=== PATIENT | male | born 1960 | race Caucasian/White ===

== ENCOUNTER 2016-09-17 16:30 | Inpatient (IN) ==
[2016-09-17] MEDS ORDERED: cefTRIAXone 1 GM in DEXTROSE 5% IN WATER 50 ML IV ONE (17:09)
[2016-09-17] MEDS ORDERED: VANCOMYCIN 1,000 MG in 0.9 % SODIUM CHLORIDE 250 ML IV ONE ×2 (17:13→21:00)
[2016-09-17] MEDS: 0.9 % SODIUM CHLORIDE 1,000 ML IV SCH ×2 (17:18→21:35)
[2016-09-17] MEDS ORDERED: PIPERACILLIN SODIUM/TAZOBACTAM 3.375 GM in DEXTROSE 5% IN WATER 50 ML IV ONE (17:35)
[2016-09-17 17:44] LABS: Basophils # (Auto) 0.1 K/mcL (0.0-0.3); Eosinophils # (Auto) 0.2 K/mcL (0.0-0.7); Eosinophils % (Auto) 2.3 % (0.0-7.0); Granulocytes % (Auto) 55.2 % (38.0-78.0); Lymphocytes # (Auto) 2.6 K/mcL (1.5-4.8); Lymphocytes % (Auto) 35.5 % (15.5-49.0); Mean Cell Volume 92.8 fL (80.0-100.0); Mean Corpuscular HGB Conc 34.4 g/dL (31.0-36.0); Mean Corpuscular Hemoglobin 31.9 pg (26.0-34.0); Monocytes # (Auto) 0.4 K/mcL (0.1-0.9); Platelet Count 320 K/mcL (140-440); RBC 4.95 M/mcL (4.50-5.90); Red Cell Distribution Width 12.3 % (11.5-14.5)
[2016-09-17] MEDS: HYDROmorphone 2 MG/ML SYRINGE IV SCH ×2 (17:44→18:02)
[2016-09-17] MEDS ORDERED: HYDROmorphone 2 MG/ML SYRINGE ONE (17:45)
[2016-09-17 18:03] LABS: ALT/SGPT 23 U/l (0-40); Albumin 4.1 gm/dL (3.2-5.2); Albumin/Globulin Ratio 1.2 (1.0-2.3); Alkaline Phosphatase 96 U/L (39-117); Blood Urea Nitrogen 17 mg/dl (6-20)
--- NOTE | 2016-09-17 19:26 | Internal Med History&Physical ---
Medical - H&P: HPI Patient information: Note initiated : 09/17/16 at 7:26 pm Patient: Rock Narayan 56 y/o M admitted for left foot infection, osteomyelitis. History of present illness: Mr. Narayan is a 56 year old man with a history of osteomyelitis of his left foot. He apparently has had difficulty keeping appointments, and has generally been noncompliant with care. He had a surgical procedure with Dr. Jc Nolan, which subsequently became infected. He then had a revision with Dr. Morales, and that wound dehisced. He has followed up for wound care at both [facility] and [facility], and was lost to follow-up. He reports that he has been on antibiotics both oral and IV, intermittently for about 60 days now. He tells me that he developed a left foot infection in November 2015. I believe he was treated as an inpatient at [facility], and underwent a surgical procedure with Dr. Nolan. He says the infection then came back and then he followed up with Dr. Morales, and had another surgery. He says he was then treated for approximately 60 days with IV antibiotics from January to March , and that he did not miss an appointment. At some point he was also followed at our wound care clinic, and says he was discharged from there, even though the wound was still a little bit open. He was told it would close up on its own eventually, but he says it did not. He got very frustrated with the lining maker, so he decided to stop seeing them. He has been in and out of the emergency room whenever the foot flares up and starts to drain again. He has been treated with various oral antibiotics, including ciprofloxacin and Bactrim. He believes he had an MRI over at [facility] about 6 weeks ago, that showed ongoing osteomyelitis. His sister was diagnosed with lung cancer not long ago, and he decided to forget about his foot while he tried to help her through her cancer. He has been experiencing fever and chills the last few days, and feeling dizzy. He notes he has had intermittent nausea, vomiting, and diarrhea. The diarrhea tends to wax and wane a bit. He also has a mild cough for the last few days, which is nonproductive. He was seen in our emergency room on September 13, and wound cultures were done. I believe he was referred to orthopedics, but did not make that appointment. He presented back to the emergency room today complaining of fever and chills, and extreme frustration with his inability to get his foot healed. He says his sister, who appears to be dying of her cancer, strongly encouraged him to get treatment for his foot, and this is what his family wants as well. He otherwise denies headaches, new eye or ear symptoms, sore throat, chest pain or palpitations, shortness of breath, abdominal pain, hematemesis or bright red blood per rectum, dysuria. He initially denied depression, but then admits he has been very frustrated and that he often cries himself to sleep because he is so frustrated with his health. He has been seeing Dr. Hadley, but apparently Dr. hadley is getting ready to retire. It has been suggested that he get a new primary care physician. Dr. Hadley has been treating him with Seroquel, but the patient's understanding was that this was to help him sleep, and not necessarily for depression or psychosis. He denies any previous diagnosis of depression or bipolar disorder. Past medical history: Left foot infection, status post surgical repair, status post wound infection and osteomyelitis ? Undiagnosed depression Previous back spine surgery [address] in [place]. He has rods and cages in place. History of left knee replacement, and approximately 15 procedures on his knees, mostly the left side. He has a past history of postop infections of both of these sites, with great difficulty healing them. Current medications: Seroquel 100 mg nightly Zofran as needed Blood pressure medicine, unknown name. Vitamin C 1500 mg daily Tylenol, as needed Allergies: Codeine causes vomiting Family history: Patient reports his mother at age 54 with a history of stomach cancer. His father of lung cancer at age 57. A brother of lung cancer. A sister is currently fighting lung cancer. He has other siblings that are alive and well. Social history: Patient denies drug use. He does not drink alcohol. Uses chewing tobacco, 1-2 cans per week, for about 37 years. He is and lives with his youngest son. He has 5 daughters who are grown. 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 Medical - H&P: Meds Home Medications Medication Instructions Recorded Confirmed Type Ondansetron HCl [Zofran ODT] 4 mg SL Q4-6HP PRN #10 tablet 07/07/16 09/17/16 Rx QUEtiapine [SEROquel] 100 mg PO HS 08/19/16 09/17/16 History Allergies Allergy/AdvReac Type Severity Reaction Status Date / Time codeine AdvReac Mild Vomiting Verified 09/17/16 21:14 Medical - H&P: Exam - Constitutional Vitals: Temp Pulse Resp BP Pulse Ox 97.5 F 81 13 124/105 98 09/17/16 16:30 09/17/16 19:02 09/17/16 19:02 09/17/16 19:02 09/17/16 19:02 On exam, he is a well-developed rather overweight white male, who is tearful at times, and otherwise emotionally labile Head: Normocephalic and atraumatic. Eyes: PERRLA, EOMI, anicteric. Ears: TMs and canals are clear. Pharynx: Is clear, with good dentition and clear posterior pharynx. He does have signs of chewing tobacco in his mouth. Neck: Supple, without lymphadenopathy, JVD, thyromegaly, bruits. Cardiac exam: Shows regular rate and rhythm, with normal S1 and S2, without murmurs, rubs, gallops. Lungs: Are clear to auscultation, without rales, rhonchi, wheezes. abdomen: Is obese, but soft and nontender without obvious masses. Bowel sounds are active. Back exam, shows marked scarring over his lumbar spine. Extremities: Right lower extremity appears fairly normal. Left lower extremity has mild foot and ankle edema, which is very tender to the touch. There is no significant erythema. There is a 4-5 inch scar over the left foot, dorsal surface, which is mostly healed. I do not see any drainage today, but he says he has been having intermittent greenish drainage from the foot. It is markedly tender to touch. Neurologic exam: Is grossly nonfocal. Affect is quite sad and labile. Her exam is nonfocal. Skin exam: No other obvious rashes are noted. He does have multiple tattoos. Medical - H&P: Reslt - Labs CBC & Chem 7: 09/17/16 16:55 09/17/16 16:55 Labs: Short CBC 09/17/16 Range/Units 16:55 WBC 7.4 (4.5-11.0) K/mcL Hgb 15.8 (13.5-16.5) g/dL Hct 45.9 (41.0-55.0) % Plt Count 320 (140-440) K/mcL BMP 09/17/16 16:55 Sodium 135 Potassium 3.7 Chloride 99 Carbon Dioxide 24 BUN 17 Creatinine 1.1 Glucose 145 H Calcium 9.4 Liver Function 09/17/16 Range/Units 16:55 Total Bilirubin 1.0 (0.0-1.0) mg/dL AST 22 (0-37) U/l ALT 23 (0-40) U/l Alkaline Phosphatase 96 (39-117) U/L Albumin 4.1 (3.2-5.2) gm/dL September 13, 2016: Wound culture right foot: Pseudomonas aeruginosa, pseudocyst aeruginosa #2, Alcaligenes species. The 2 Pseudomonas species are generally sensitive to cefepime, ceftazidime, Cipro, Levaquin, Zosyn. The Acaligenes species is sensitive to Levaquin, meropenem, Zosyn, Bactrim, but resistant to cefepime, aztreonam, ceftazidime, and intermittent to ciprofloxacin. It is sensitive to Levaquin. August 25: Blood cultures are negative. August 20: Left foot wound culture grew Pseudomonas aeruginosa, Citrobacter fundi, Klebsiella oxytoca July 07: Left foot wound culture grew Klebsiella oxytoca, Acineto baumannii, haemophilus parainfluenza Medical - H&P: A/P (1) Bipolar disorder with depression Current visit: Yes Status: Chronic (2) Cellulitis of left foot Current visit: No Status: Acute (3) Osteomyelitis of ankle or foot Current visit: No Status: Acute (4) Wound dehiscence, surgical Current visit: No Status: Acute - Narrative A/P Narrative: #1. Infectious disease. This patient presents with ongoing infection of his left foot, with wound that has had purulent drainage over the last several weeks.. He is status post placement of hardware, and has an ongoing history of osteomyelitis. This is reportedly been going on for at least 2 to 6 months. He has been noncompliant with follow-up, and lost to follow-up at least twice. He now presents with weakness and fatigue, and chills. Vital signs and labs are not terribly abnormal, presumably because he has been partially treated with antibiotics as an outpatient. He clearly requires more aggressive treatment in an attempt to get this to move towards healing. -Admit. -Reculture wound and blood. -Cover empirically with Zosyn and vancomycin, as bacteria that are growing from several days ago, are covered by these antibiotics.. -Wound care consult -He may need podiatry or orthopedic consult as well, for possible repeat surgery. -X-ray foot tonight. Sent for the MRI from [facility] from 6 weeks ago. He will likely require another MRI this week. #2. Psychiatric. Patient denies history of depression, but certainly appears depressed at this point. The reason he was prescribed Seroquel is not entirely clear. We should try to clarify that with Dr. Mena's office -I would suggest weaning the dose of Seroquel down a bit. Add Zoloft, for likely depression. This may also help somewhat with pain control. He should have a referral to counseling at discharge as well. We also discussed that he needs to not be too wrapped up in his foot. We discussed that even if he requires partial foot amputation, he can still go on with his life. He is strongly encouraged to stick with a treatment plan, and not be lost to follow-up again. We discussed that this just makes treatment in the future even more difficult. 3. CODE STATUS: Full code. 4. DVT prophylaxis: Subcu Lovenox. 5. Hypertension. -We will need to check with his primary care office tomorrow to verify what his blood pressure medication is or, he will try to see if his can find that out tonight. He says he usually uses the [facility] pharmacy in [place]. 6. Obesity. #7. GI. Patient reports episodes of nausea, vomiting, diarrhea. He is at risk for C. difficile colitis. We will send a stool sample for screening. I do wonder if some of his GI symptoms are related to anxiety, and he may also just have some antibiotic associated diarrhea. #8. Tobacco abuse. The patient has long-standing use of chewing tobacco. He has a strong family history of cancer, and absolutely should stop using chewing tobacco. He should be referred to a good oral surgeon for a thorough exam. -He will be offered a NicoDerm patch while he is here. #9. Disposition: Patient will also need to be connected with a new primary care physician. This visit took approximately 60 minutes, to review the patient's records and test results, review his case with the ER MD, interview and examine him, and write orders.
[2016-09-17] MEDS ORDERED: ACETAMINOPHEN 325 MG TABLET PO PRN (20:06)
[2016-09-17] MEDS ORDERED: IBUPROFEN 600 MG TABLET PO PRN (20:06)
[2016-09-17] MEDS ORDERED: VANCOMYCIN PER PHARMACY IV SCH (20:06)
[2016-09-17] MEDS ORDERED: MAGNESIUM HYDROXIDE 30 ML ORAL.SUSP PO PRN (20:06)
[2016-09-17] MEDS ORDERED: 0.9 % SODIUM CHLORIDE 1,000 ML IV SCH (20:06)
[2016-09-17] MEDS ORDERED: DOCUSATE SODIUM 100 MG CAPSULE PO PRN (20:06)
[2016-09-17] MEDS ORDERED: NALOXONE HCL 0.4 MG/ML VIAL IV PRN (20:06)
[2016-09-17] MEDS ORDERED: traZODone HCL 50 MG TABLET PO PRN (20:06)
--- NOTE | 2016-09-17 20:15 | Emergency Department Note ---
Wound/Laceration HPI - General Chief Complaint: Recheck/Abnormal Lab/Rx Stated Complaint: Recheck of left foot wound Time Seen by Provider: 09/17/16 16:42 Source: patient Mode of arrival: wheelchair Limitations: no limitations - History of Present Illness HPI Narrative: 56-year-old female presents complaining of wound infection to left foot. States this is a recurrent infection. He was seen about 5 days ago and was set up on outpatient IV antibiotic therapy but has not followed up in any way. He does have a history of noncompliance. States he has not been seen a specialist at this time, only his primary care provider Dr. gomes. He states he has seen several wound care doctors as well as podiatry and will not go back to them. This is a recurrent problem with this osteomyelitis in the left foot. Is tearful and states he is scared because he generally does not feel well. Feels like he has chills and is sweating. "I just do not feel right like I can really this time ". Unknown fever. Positive nausea, no vomiting or diarrhea. States his foot is throbbing. Also has some tingling in the left great toe distal to the wound site. States he is not currently taking any antibiotics. Associated symptoms: Reports: pain. Denies: syncope - Related Data Home Medications Medication Instructions Recorded Confirmed QUEtiapine [SEROquel] 100 mg PO HS 08/19/16 09/17/16 Previous Rx's Medication Instructions Recorded Ondansetron HCl [Zofran ODT] 4 mg SL Q4-6HP PRN #10 tablet 07/07/16 Allergies Allergy/AdvReac Type Severity Reaction Status Date / Time codeine Allergy Intermediate Vomiting Verified 09/17/16 16:33 Review of Systems All systems ED: reviewed and negative except as stated. Past Medical History - Past Medical History Medical history: Reports: other (States long history with wound healing problems from multiple surgeries including his back and his left foot.States he has an infection in the bone of left foot for which he has been receiving IV antibiotic therapy for over 60 days., Chronic left foot wound and wound dehiscence. Osteomyelitis in the left foot. Noncompliant) Surgical history ED: Reports: other (multiple lumbar spine cervical spine surgeries; left knee replacement last year; multiple foot surgeries) Psychiatric history: Reports: bipolar - Social History smoking status: Unknown if ever smoked Alcohol use: Reports: Unknown Drug use: Reports: none Physical Exam - General Limitations: no limitations General appearance: anxious - Head Head exam: atraumatic, normocephalic, normal inspection - Eye Eye exam: Present: normal appearance. Absent: conjunctival injection - ENT ENT exam: normal exam, normal oropharynx, mucous membranes moist, TM's normal bilaterally, normal external ear exam - Neck Neck exam: Present: normal inspection, full ROM, trachea midline. Absent: tenderness, lymphadenopathy - Chest Chest inspection: Present: normal inspection, symmetric chest wall rise - Respiratory Respiratory exam: Present: normal lung sounds bilaterally. Absent: respiratory distress, wheezes, accessory muscle use - Cardiovascular Cardiovascular exam: Present: regular rate, normal heart sounds - Extremities Exam Extremities exam: Present: normal capillary refill. Absent: normal inspection ( Please see skin assessment regarding the left foot. Left foot with open draining wound with purulent drainage. Pedal pulses are strong and equal bilaterally. There is edema to left foot around the wound site. No change in range of motion. Sensation intact.) - Neurological Exam Neurological exam: Present: alert, oriented X3 - Psychiatric Psychiatric exam: Present: normal affect, normal mood, agitated (Agitated and anxious at times but does calm down and is cooperative. States that he wants help) - Skin Skin exam: Present: warm, dry. Absent: intact (Left foot with a 7 cm wound that is an obvious past surgical site with scar tissue. The area is red and swollen. It is warm to touch. There is greenish yellow drainage. Wound culture from 5 days ago grew out multiple Pseudomonas) Course Course Narrative: Case discussed with hospitalist Dr. Torres who agrees to admit patient and patient will be compliant and stay. Patient states that he will, understands the seriousness of this and wants help Vital Signs Temperature 97.5 F 09/17/16 16:30 Pulse Rate 92 H 09/17/16 16:30 Respiratory Rate 20 09/17/16 16:30 Blood Pressure 142/75 09/17/16 16:30 Pulse Oximetry (%) 96 09/17/16 16:30 Temperature 97.5 F 09/17/16 19:44 Pulse Rate 81 09/17/16 19:44 Respiratory Rate 13 09/17/16 19:44 Blood Pressure 124/105 09/17/16 19:44 Pulse Oximetry (%) 98 09/17/16 19:44 Wound/Laceration - Lab Data Result diagrams: 09/17/16 16:55 09/17/16 16:55 Lab Results 09/17/16 09/17/16 09/17/16 Range/Units 16:55 16:55 16:55 WBC 7.4 (4.5-11.0) K/mcL RBC 4.95 (4.50-5.90) M/mcL Hgb 15.8 (13.5-16.5) g/dL Hct 45.9 (41.0-55.0) % MCV 92.8 (80.0-100.0) fL MCH 31.9 (26.0-34.0) pg MCHC 34.4 (31.0-36.0) g/dL RDW 12.3 (11.5-14.5) % Plt Count 320 (140-440) K/mcL MPV 8.2 (7.4-10.4) fL Gran % 55.2 (38.0-78.0) % Lymph % (Auto) 35.5 (15.5-49.0) % Vance % (Auto) 6.0 (1.0-12.0) % Eos % (Auto) 2.3 (0.0-7.0) % Baso % (Auto) 1.0 (0.0-2.0) % Gran # 4.1 (1.8-8.0) K/mcL Lymph # (Auto) 2.6 (1.5-4.8) K/mcL Vance # (Auto) 0.4 (0.1-0.9) K/mcL Eos # (Auto) 0.2 (0.0-0.7) K/mcL Baso # (Auto) 0.1 (0.0-0.3) K/mcL VBG Lactic Acid 2.2 (0.5-2.2) mmol/L Sodium 135 (133-145) mmol/L Potassium 3.7 (3.3-5.1) mmol/L Chloride 99 (96-108) mmol/L Carbon Dioxide 24 (22-30) mmol/L Anion Gap 12.0 (8-16) BUN 17 (6-20) mg/dl Creatinine 1.1 (0.7-1.2) mg/dl GFR Calculation 74 Glucose 145 H (70-105) mg/dL Calcium 9.4 (8.6-10.4) mg/dl Total Bilirubin 1.0 (0.0-1.0) mg/dL AST 22 (0-37) U/l ALT 23 (0-40) U/l Alkaline Phosphatase 96 (39-117) U/L Total Protein 7.6 (5.9-8.4) gm/dL Albumin 4.1 (3.2-5.2) gm/dL Globulin 3.5 (2.2-3.7) gm/dL Albumin/Globulin Ratio 1.2 (1.0-2.3) Disposition Pt seen by SENIOR DATA QUALITY ANALYST/PA only: Yes Clinical Impression: Encounter for wound re-check Disposition: Xfer As Inpt ([facility]) Condition: Fair
[2016-09-17] MEDS: HYDROcodone/APAP 5/325MG TABLET PO PRN (21:28)
[2016-09-17] MEDS ORDERED: VANCOMYCIN 500 MG VIAL ONE (21:56)
[2016-09-17] MEDS: 0.9 % SODIUM CHLORIDE 10 ML SYRINGE IV SCH (21:58)
[2016-09-17] MEDS ORDERED: PIPERACILLIN SODIUM/TAZOBACTAM 3.375 GM VIAL IV ONE (23:43)
[2016-09-17] MEDS: PIPERACILLIN SODIUM/TAZOBACTAM 3.375 GM in DEXTROSE 5% IN WATER 50 ML IV SCH (23:52)
[2016-09-18] MEDS: HYDROcodone/APAP 5/325MG TABLET PO PRN ×2 (01:35→09:52)
[2016-09-18] MEDS ORDERED: PIPERACILLIN SODIUM/TAZOBACTAM 3.375 GM VIAL IV ONE (03:57)
[2016-09-18] MEDS: 0.9 % SODIUM CHLORIDE 10 ML SYRINGE IV SCH ×3 (05:20→21:42)
[2016-09-18] MEDS: PIPERACILLIN SODIUM/TAZOBACTAM 3.375 GM in DEXTROSE 5% IN WATER 50 ML IV SCH ×3 (05:20→17:44)
[2016-09-18 05:48] LABS: Basophils # (Auto) 0 K/mcL (0.0-0.3); Basophils % (Auto) 0.4 % (0.0-2.0); Eosinophils # (Auto) 0.2 K/mcL (0.0-0.7); Eosinophils % (Auto) 3.2 % (0.0-7.0); Granulocytes % (Auto) 53.7 % (38.0-78.0); Lymphocytes # (Auto) 2.6 K/mcL (1.5-4.8); Lymphocytes % (Auto) 34.9 % (15.5-49.0); Mean Cell Volume 93.9 fL (80.0-100.0); Mean Corpuscular HGB Conc 34.6 g/dL (31.0-36.0); Mean Corpuscular Hemoglobin 32.5 pg (26.0-34.0); Monocytes # (Auto) 0.6 K/mcL (0.1-0.9); Monocytes % (Auto) 7.8 % (1.0-12.0); Platelet Count 284 K/mcL (140-440); RBC 4.33 M/mcL (4.50-5.90); Red Cell Distribution Width 12.2 % (11.5-14.5)
[2016-09-18 06:26] LABS: ALT/SGPT 19 U/l (0-40); Albumin 3.6 gm/dL (3.2-5.2); Albumin/Globulin Ratio 1.2 (1.0-2.3); Alkaline Phosphatase 82 U/L (39-117); Bilirubin,Direct < 0.2 mg/dL (0.0-0.3); Blood Urea Nitrogen 14 mg/dl (6-20); Gamma Glutamyl Transpeptidase 48 U/L (8-61); Magnesium 2.1 mg/dL (1.6-2.5); Uric Acid 5.9 mg/dL (2.5-8.0)
--- NOTE | 2016-09-18 08:52 | General Surgery Consult Note ---
History of Present Illness Patient information: Note initiated : 09/18/16 at 8:46 am Service Date, if different from initiated Date: [] Patient: Rock Narayan 56 y/o M admitted on 09/17/16 for Recheck of left foot wound. Chief Complaint: [] Consult date: 09/18/16 Requesting physician: Bhavani Martini (Wound Care Consult) History of present illness: I saw this patient in room 116 along with AZALEA Cotto Inpatient wound care and Skyla RN caring for this patient. Subsequently discussed his case with Dr. Kartik Torres. I know this patient well from prior visits at wound care clinic. I reviewed his EHR and noted developments, leading to his admission this time at [facility]. H/O Nicotine addiction, NON healing wound post surgical wounds LEFT FIRST TOE, metatarsal bone. H/O Osteomyelitis, PAD, prior podiatry procedures and variable courses of IV antibiotics and local wound care. Patient still chews tobacco. Long standing problems of psych nature with depression, anxiety and NON ADHERENCE to recommended treatment regimens. Medications and Allergies Home Medications Medication Instructions Recorded Confirmed Type Ondansetron HCl [Zofran ODT] 4 mg SL Q4-6HP PRN #10 tablet 07/07/16 09/17/16 Rx QUEtiapine [SEROquel] 100 mg PO HS 08/19/16 09/17/16 History Allergies Allergy/AdvReac Type Severity Reaction Status Date / Time codeine AdvReac Mild Vomiting Verified 09/17/16 21:14 Exam Temp Pulse Resp BP Pulse Ox 99.0 F H 56 L 18 159/76 95 09/18/16 08:00 09/18/16 03:49 09/18/16 08:00 09/18/16 08:00 09/18/16 08:00 - General physical appearance well developed, well nourished, no distress, no pain, other (Tearful during conversation. His sister is at terminal stage of Lung Cancer. Managed at [facility] . Patient was reportedly preoccupied with her care. But NOW sister has advised him to take care of his problem FIRST.) - Eyes PERRL, normal ocular movement - ENT normal pinna, normal mucosa, no congestion - Head Head exam IM: Present: atraumatic, normal inspection, normocephalic - Neck no masses, no bruits, trachea midline, no venous distension - Cardiovascular Cardiovascular exam IM: Present: normal rate and rhythm - Respiratory normal expansion, normal respiratory effort, clear to auscultation - Abdomen Abdomen: Present: soft, non tender, bowel sounds - Integumentary Present: other (Indurated skin edges with edema of LEFT foot, non healing wound base, without drainage and odor, Tenderness of periwound tissues and NON palpable pulses. Sub acute / chronic infection wit hnew changes of cellulitis evolving. 6x1x0.5 CM ) - Neurologic Present: normal coordination, normal sensation, other (No focal neurological deficits. ) - Musculoskeletal Present: other (NWB left foot. OPEN wound on dorsal aspect of LEFT 1 st toe over the metatarsal areas. See details as above in Integumentary note.) - Psychiatric Present: oriented to time, oriented to person, oriented to place, speech is normal, other (Tearful, repetative and anxious. ) Results - Labs 09/18/16 04:35 09/18/16 04:35 Abnormal lab results 09/18/16 09/18/16 09/18/16 Range/Units 04:35 04:35 06:48 RBC 4.33 L (4.50-5.90) M/mcL Hct 40.7 L (41.0-55.0) % ESR 22 H (0-15) mm/hr Creatinine 1.3 H (0.7-1.2) mg/dl Glucose 108 H (70-105) mg/dL Triglycerides 151 H (<150) mg/dl Diabetes panel 09/18/16 Range/Units 04:35 Sodium 142 (133-145) mmol/L Potassium 3.5 (3.3-5.1) mmol/L Chloride 105 (96-108) mmol/L Carbon Dioxide 23 (22-30) mmol/L BUN 14 (6-20) mg/dl Creatinine 1.3 H (0.7-1.2) mg/dl Glucose 108 H (70-105) mg/dL Calcium 8.8 (8.6-10.4) mg/dl AST 17 (0-37) U/l ALT 19 (0-40) U/l Alkaline Phosphatase 82 (39-117) U/L Total Protein 6.6 (5.9-8.4) gm/dL Albumin 3.6 (3.2-5.2) gm/dL Triglycerides 151 H (<150) mg/dl Calcium panel 09/18/16 Range/Units 04:35 Calcium 8.8 (8.6-10.4) mg/dl Phosphorus 3.3 (2.7-4.5) mg/dL Albumin 3.6 (3.2-5.2) gm/dL Pituitary panel 09/18/16 Range/Units 04:35 Sodium 142 (133-145) mmol/L Potassium 3.5 (3.3-5.1) mmol/L Chloride 105 (96-108) mmol/L Carbon Dioxide 23 (22-30) mmol/L BUN 14 (6-20) mg/dl Creatinine 1.3 H (0.7-1.2) mg/dl Glucose 108 H (70-105) mg/dL Calcium 8.8 (8.6-10.4) mg/dl Adrenal panel 09/18/16 Range/Units 04:35 Sodium 142 (133-145) mmol/L Potassium 3.5 (3.3-5.1) mmol/L Chloride 105 (96-108) mmol/L Carbon Dioxide 23 (22-30) mmol/L BUN 14 (6-20) mg/dl Creatinine 1.3 H (0.7-1.2) mg/dl Glucose 108 H (70-105) mg/dL Calcium 8.8 (8.6-10.4) mg/dl Total Bilirubin 0.5 (0.0-1.0) mg/dL AST 17 (0-37) U/l ALT 19 (0-40) U/l Alkaline Phosphatase 82 (39-117) U/L Total Protein 6.6 (5.9-8.4) gm/dL Albumin 3.6 (3.2-5.2) gm/dL All other labs normal. Assessment and Plan (1) PAD (peripheral artery disease) Status: Suspected Priority: Medium (2) Wound dehiscence, surgical Assessment: Infected chronic wound with sub acute exacerbation. Osteomyelitis Left 1 st toe proximal foot. OPEN wound. No drainage and NO odor NEEDS, Local wound care, LUISA tissue capillary FLUORESCENT microangiography , Agree with Antidepressants and IV antibiotics. Podiatry consult Dr. Darci Jacobs. DPM LUISA Fluorescent tissue microangiography at wound clinic this morning. Status: Acute Priority: High Qualifiers: Encounter type: initial encounter
--- NOTE | 2016-09-18 08:54 | XRay Report ---
CLINICAL INFORMATION: Infected with history of osteomyelitis COMPARISON: None. FINDINGS: The first metatarsal is foreshortened and there is marked thickening/irregularity of both the cortical and trabecular bone. Findings are most compatible with resolved osteomyelitis. There is no evidence of Nilton's abscess, lysis or other definite evidence of active osteomyelitis. No other osseous abnormality. Joint spaces are normal with alignment without arthritic change. There is moderate soft tissue swelling and midfoot and forefoot region likely representing cellulitis. IMPRESSION: Suspect healed chronic osteomyelitis throughout the first metatarsal. No definite plain film evidence of active osteomyelitis. If there is strong clinical consideration suggest MRI. Diffuse soft tissue swelling in the forefoot and midfoot compatible with cellulitis Interpreted and Authenticated by: Parish Mora 09/18/16
[2016-09-18] MEDS: VANCOMYCIN 1,500 MG in 0.9 % SODIUM CHLORIDE 500 ML IV SCH ×2 (09:45→21:33)
[2016-09-18] MEDS: busPIRone 5 MG TABLET PO SCH ×2 (09:46→21:42)
[2016-09-18] MEDS: MULTIVIT,THER IRON,CA,FA & MIN 1 TABLET PO SCH (09:46)
[2016-09-18] MEDS: NICOTINE 7 MG PATCH TOPICAL SCH (09:46)
[2016-09-18] MEDS: SERTRALINE 50 MG TABLET PO SCH (09:46)
[2016-09-18] MEDS: ENOXAPARIN 40 MG/0.4 ML SYRINGE SQ SCH (09:46)
--- NOTE | 2016-09-18 11:14 | Internal Med Progress Note ---
Medical - PN: Subj Patient information: Note initiated : 09/18/16 at 11:14 am Service Date, if different from initiated Date: [] Patient: Rock Narayan 56 y/o M admitted on 09/17/16 for Recheck of left foot wound. Chief Complaint: [] Interval history: September 17, 2016: History of present illness: Mr. Narayan is a 56 year old man with a history of osteomyelitis of his left foot. He apparently has had difficulty keeping appointments, and has generally been noncompliant with care. He had a surgical procedure with Dr. Jc Nolan, which subsequently became infected. He then had a revision with Dr. Morales, and that wound dehisced. He has followed up for wound care at both [facility] and [facility], and was lost to follow-up. He reports that he has been on antibiotics both oral and IV, intermittently for about 60 days now. He tells me that he developed a left foot infection in November 2015. I believe he was treated as an inpatient at [facility], and underwent a surgical procedure with Dr. Nolan. He says the infection then came back and then he followed up with Dr. Morales, and had another surgery. He says he was then treated for approximately 60 days with IV antibiotics from January to March , and that he did not miss an appointment. At some point he was also followed at our wound care clinic, and says he was discharged from there, even though the wound was still a little bit open. He was told it would close up on its own eventually, but he says it did not. 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 He has been in and out of the emergency room whenever the foot flares up and starts to drain again. He has been treated with various oral antibiotics, including ciprofloxacin and Bactrim. He believes he had an MRI over at [facility] about 6 weeks ago, that showed ongoing osteomyelitis. His sister was diagnosed with lung cancer not long ago, and he decided to forget about his foot while he tried to help her through her cancer. He has been experiencing fever and chills the last few days, and feeling dizzy. He notes he has had intermittent nausea, vomiting, and diarrhea. The diarrhea tends to wax and wane a bit. He also has a mild cough for the last few days, which is nonproductive. He was seen in our emergency room on September 13, and wound cultures were done. I believe he was referred to orthopedics, but did not make that appointment. He presented back to the emergency room today complaining of fever and chills, and extreme frustration with his inability to get his foot healed. He says his sister, who appears to be dying of her cancer, strongly encouraged him to get treatment for his foot, and this is what his family wants as well. He otherwise denies headaches, new eye or ear symptoms, sore throat, chest pain or palpitations, shortness of breath, abdominal pain, hematemesis or bright red blood per rectum, dysuria. He initially denied depression, but then admits he has been very frustrated and that he often cries himself to sleep because he is so frustrated with his health. He has been seeing Dr. Hadley, but apparently Dr. hadley is getting ready to retire. It has been suggested that he get a new primary care physician. Dr. Hadley has been treating him with Seroquel, but the patient's understanding was that this was to help him sleep, and not necessarily for depression or psychosis. He denies any previous diagnosis of depression or bipolar disorder. September 18: Today, the patient notes he is feeling a bit better, and a bit more optimistic about healing his foot. I saw him at the same time that Dr. Flynn saw him this morning. The patient has been noticing increasing foot pain, and does note that he had some sweats last night. Otherwise though he is having less chills, he denies chest pain or palpitations, shortness of breath, abdominal pain, nausea or vomiting or diarrhea or dysuria. Later today he did have a loose stool again, but C. difficile screen was negative. His and son were also in the room with him today, and he reports he is agreeable to trying antidepressants for his depression and anxiety symptoms. - Constitutional Vitals: Vital Signs Temp Pulse Resp BP Pulse Ox 97.8 F 56 L 20 156/58 96 09/18/16 11:10 09/18/16 03:49 09/18/16 11:10 09/18/16 11:10 09/18/16 11:10 Period Temp Pulse Resp BP Sys/Torrez Pulse Ox Last 24 Hr 97.2 F-99.0 F 52-56 18-20 140-159/58-78 95-96 Intake and Output 09/17/16 09/18/16 09/18/16 21:59 05:59 13:59 Intake Total 1100 / 1100 1050 / 1050 Balance 1100 / 1100 1050 / 1050 Weight 243 lb Intake & Output: Intake & Output 09/17/16 09/18/16 09/18/16 21:59 05:59 13:59 Intake Total 1100 / 1100 1050 / 1050 Balance 1100 / 1100 1050 / 1050 Weight 243 lb Intake: IV 1050 / 1050 Oral 800 / 800 IV - Manual Only 300 / 300 Temperature was 99 at 8:00 this morning, and he has been afebrile since then. Blood pressures are running a bit high, ranging from 156-177/58-95. On exam, he is awake and alert, and seems to be in better spirits today. Neck is supple without obvious lymphadenopathy or JVD. Cardiac exam shows regular rate and rhythm. Lungs are clear to auscultation. Next line abdomen is soft. Right lower extremity shows no edema. Left lower extremity: The left foot continues to be quite swollen and very tender to touch. No discharge is noted from the wound today. Neurologic: Is grossly nonfocal. Mood seems a bit calmer today. Medical - PN: Obj Da - Labs CBC & Chem 7: 09/18/16 04:35 09/18/16 04:35 Labs: Abnormal Lab Results 09/18/16 09/18/16 09/18/16 06:48 04:35 04:35 RBC 4.33 L Hct 40.7 L ESR 22 H Creatinine 1.3 H Glucose 108 H Triglycerides 151 H September 18: C. difficile screen is negative. Blood cultures are negative so far. Left foot x-ray: Suspect healing chronic osteomyelitis throughout the first metatarsal. No definite evidence of active osteomyelitis. Diffuse soft tissue swelling in the forefoot and mid foot compatible with cellulitis. September 17: Sed rate elevated at 25. Lactic acid is normal at 2.2 September 13, 2016: -Wound culture right foot: Pseudomonas aeruginosa, pseudocyst aeruginosa #2, Alcaligenes species. The 2 Pseudomonas species are generally sensitive to cefepime, ceftazidime, Cipro, Levaquin, Zosyn. The Acaligenes species is sensitive to Levaquin, meropenem, Zosyn, Bactrim, but resistant to cefepime, aztreonam, ceftazidime, and intermittent to ciprofloxacin. It is sensitive to Levaquin. August 25: Blood cultures are negative. August 20: Left foot wound culture grew Pseudomonas aeruginosa, Citrobacter fundi, Klebsiella oxytoca August 01, 2016: MRI of his left foot: Postsurgical changes identified in the first metatarsal. Interval increase in edema and soft tissue swelling throughout the soft tissue at the level of the first metatarsal. Increased marrow edema in the first metatarsal with loss of signal on T1 imaging, consistent with osteomyelitis. The right first metatarsal and metatarsal phalangeal joint July 07: Left foot wound culture grew Klebsiella oxytoca, Acineto baumannii, haemophilus parainfluenza Meds: Medications Acetaminophen (Tylenol) 650 mg PO Q6HP PRN PRN Reason: PAIN/FEVER > 101 Last Admin: 09/18/16 03:45 Dose: 650 mg Buspirone HCl (Buspar) 5 mg PO BID [facility] Last Admin: 09/18/16 09:46 Dose: 5 mg Docusate Sodium (Colace) 100 mg PO BID PRN PRN Reason: Constipation Enoxaparin Sodium (Lovenox) 40 mg SQ DAILY [facility] Last Admin: 09/18/16 09:46 Dose: 40 mg Piperacillin Sod/Tazobactam (Sod 3.375 gm/ Dextrose) 50 mls @ 100 mls/hr IV Q6H [facility] Last Admin: 09/18/16 05:20 Dose: Not Given Vancomycin HCl 1,500 mg/ (Sodium Chloride) 500 mls @ 333.3 mls/hr IV Q12H [facility] Last Admin: 09/18/16 09:45 Dose: 200 mls/hr Ibuprofen (Motrin) 600 mg PO QIDP PRN PRN Reason: PAIN/FEVER > 101 Iron Carb/Multivit/Balance Recesser/Folic Acid (Multivitamin W/Minerals) 1 tab PO DAILY [facility] Last Admin: 09/18/16 09:46 Dose: 1 tab Lorazepam (Ativan) 0.5 mg PO Q8HP PRN PRN Reason: ANXIETY/SEDATION Magnesium Hydroxide (Milk Of Magnesia) 30 ml PO DAILYP PRN PRN Reason: Constipation Naloxone HCl (Narcan) 0.1 mg IV Q2MIN PRN PRN Reason: Opiate Reversal Nicotine (Nicoderm) 7 mg TOPICAL DAILY@1000 [facility] Last Admin: 09/18/16 09:46 Dose: Not Given Ondansetron HCl (Zofran Odt) 4 mg SL Q6HP PRN PRN Reason: Nausea And Vomiting Oxycodone/Acetaminophen (Percocet 5-325 Mg) 1 - 2 tab PO Q4-6HP PRN PRN Reason: Pain Quetiapine Fumarate (Seroquel) 75 mg PO HS [facility] Sertraline HCl (Zoloft) 50 mg PO DAILY [facility] Last Admin: 09/18/16 09:46 Dose: 50 mg Sodium Chloride (Saline Flush) 10 ml IV Q8 [facility] Last Admin: 09/18/16 05:20 Dose: 10 ml Trazodone HCl (Desyrel) 25 mg PO HSP PRN PRN Reason: Insomnia Vancomycin HCl (Vancomycin Per Pharmacy) 1 order IV UD [facility] Medical - PN: A/P - Time Spent With Patient Total time spent is greater than 50% in coordination of care (as documented) at patient's floor/unit and/or counseling patient: 25 - 35 minutes (1) Bipolar disorder with depression Status: Chronic Current Visit: Yes (2) Cellulitis of left foot Status: Acute Current Visit: No (3) Osteomyelitis of ankle or foot Status: Acute Current Visit: No (4) Wound dehiscence, surgical Status: Acute Current Visit: No - Narrative A/P Narrative: #1. Infectious disease. This patient presents with ongoing infection of his left foot, with wound that has had purulent drainage over the last several weeks.. He is status post placement of hardware, and has an ongoing history of osteomyelitis. This is reportedly been going on for at least 2 to 6 months. He has been noncompliant with follow-up, and lost to follow-up at least twice. He now presents with weakness and fatigue, and chills. Vital signs and labs are not terribly abnormal, presumably because he has been partially treated with antibiotics as an outpatient. He clearly requires more aggressive treatment in an attempt to get this to move towards healing. -Wound and blood cultures are pending. -Consult Dr. Jacobs of podiatry. -Care plan reviewed with Dr. Flynn this morning. He suggested continue with IV antibiotics for now. He did send the patient for vascular screening. -Cover empirically with Zosyn and vancomycin, as bacteria that are growing from several days ago, are covered by these antibiotics.. #2. Psychiatric. Patient denies history of depression, but certainly appears depressed at this point. The reason he was prescribed Seroquel is not entirely clear. We should try to clarify that with Dr. Mena's office. -Seroquel dose decreased. Zoloft and BuSpar added. He should have a referral to counseling at discharge as well. We also discussed that he needs to not be too wrapped up in his foot. We discussed that even if he requires partial foot amputation, he can still go on with his life. He is strongly encouraged to stick with a treatment plan, and not be lost to follow-up again. We discussed that this just makes treatment in the future even more difficult. 3. CODE STATUS: Full code. 4. DVT prophylaxis: Subcu Lovenox. 5. Hypertension. -We will need to check with his primary care office to verify what his blood pressure medication is or, he will try to see if his can find that out tonight. He says he usually uses the [facility] in [place]. 6. Obesity. #7. GI. Patient reports episodes of nausea, vomiting, diarrhea. He is at risk for C. difficile colitis, but C. difficile screen was negative today.. I do wonder if some of his GI symptoms are related to anxiety, and he may also just have some antibiotic associated diarrhea. #8. Tobacco abuse. The patient has long-standing use of chewing tobacco. He has a strong family history of cancer, and absolutely should stop using chewing tobacco. He should be referred to a good oral surgeon for a thorough exam. -He will be offered a NicoDerm patch while he is here. #9. Disposition: Patient will also need to be connected with a new primary care physician. Medical - PN: Qual - Stroke Symptom Onset Unknown: No - VTE Deep Vein Thrombosis/Pulmonary Embolism Present on Admission: No
[2016-09-18] MEDS: oxyCODONE/APAP 5/325MG TABLET PO PRN ×3 (12:32→20:16)
--- NOTE | 2016-09-18 12:38 | General Surgery Procedure Note ---
Date of procedure: Note initiated : 09/18/16 at 12:36 pm Service Date, if different from initiated Date: [] Pre-op diagnosis: Non Healing wound LEFT foot Dorsal 1st toe ( Surgiccal ) Post-op diagnosis: same Procedure: LUISA. Fluorescent tissue capillary microangiography. Findings: DELAYED Ingress time of over 40 sec and subsequent DELAYED Egress and wash out of ICG dye. Anesthesia: none Surgeon: Jd Flynn Pathology: none sent Description of procedure: After obtaining informed consent, The procedure was carried out in [facility] . The area in questioned was photographed. The LUISA Lasers were centered over the mid portion of dorsal aspect of Left foot over the mid portion of open surgical wound. The ICG dye was injected per protocol. Images were saved and the whole study was recorded in real time. CLINICAL IMPRESSION: There is DELAYED uptake and sub optimal visualization of the periwound capillary bed and delayed sluggish washout / egress of the dye. Consistent with PAD affecting the arterioles and capillary bed of the entire wound. Reactive periwound hyperemia and early dermatitis / cellulitis changes noted. Condition: stable Disposition: other (Procedure well tolerated.)
--- NOTE | 2016-09-18 13:59 | Internal Med Progress Note ---
Medical - PN: Subj Patient information: Note initiated : 09/18/16 at 1:59 pm Service Date, if different from initiated Date: [] Patient: Rock Narayan 56 y/o M admitted on 09/17/16 for Recheck of left foot wound. Chief Complaint: [] - Constitutional Vitals: Vital Signs Temp Pulse Resp BP Pulse Ox 97.8 F 56 L 20 156/58 96 09/18/16 11:10 09/18/16 03:49 09/18/16 11:10 09/18/16 11:10 09/18/16 11:10 Period Temp Pulse Resp BP Sys/Torrez Pulse Ox Last 24 Hr 97.2 F-99.0 F 52-56 18-20 140-159/58-78 95-96 Intake and Output 09/17/16 09/18/16 09/18/16 21:59 05:59 13:59 Intake Total 1100 / 1100 2030 / 2030 Balance 1100 / 1100 2030 / 2030 Weight 243 lb Intake & Output: Intake & Output 09/17/16 09/18/16 09/18/16 21:59 05:59 13:59 Intake Total 1100 / 1100 2030 / 2030 Balance 1100 / 1100 2030 / 2030 Weight 243 lb Intake: IV 1550 / 1550 Vancomycin 1,500 mg In 500 / 500 Sodium Chloride 0.9% 500 ml @ 333.3 mls/hr IV Q12H [facility] Rx#:[id number] Oral 800 / 800 480 / 480 IV - Manual Only 300 / 300 Other: Meal Lunch Percent of Meal Consumed 100% Feeding Ability Assist with Tray Set Up Medical - PN: Obj Da - Labs CBC & Chem 7: 09/22/16 06:00 09/22/16 06:00 Labs: Abnormal Lab Results 09/18/16 09/18/16 09/18/16 06:48 04:35 04:35 RBC 4.33 L Hct 40.7 L ESR 22 H Creatinine 1.3 H Glucose 108 H Triglycerides 151 H Meds: Medications Acetaminophen (Tylenol) 650 mg PO Q6HP PRN PRN Reason: PAIN/FEVER > 101 Last Admin: 09/18/16 03:45 Dose: 650 mg Buspirone HCl (Buspar) 5 mg PO BID [facility] Last Admin: 09/18/16 09:46 Dose: 5 mg Docusate Sodium (Colace) 100 mg PO BID PRN PRN Reason: Constipation Enoxaparin Sodium (Lovenox) 40 mg SQ DAILY [facility] Last Admin: 09/18/16 09:46 Dose: 40 mg Piperacillin Sod/Tazobactam (Sod 3.375 gm/ Dextrose) 50 mls @ 100 mls/hr IV Q6H [facility] Last Admin: 09/18/16 12:33 Dose: 100 mls/hr Vancomycin HCl 1,500 mg/ (Sodium Chloride) 500 mls @ 333.3 mls/hr IV Q12H [facility] Last Infusion: 09/18/16 12:40 Dose: Infused Ibuprofen (Motrin) 600 mg PO QIDP PRN PRN Reason: PAIN/FEVER > 101 Iron Carb/Multivit/Lyman/Folic Acid (Multivitamin W/Minerals) 1 tab PO DAILY [facility] Last Admin: 09/18/16 09:46 Dose: 1 tab Lorazepam (Ativan) 0.5 mg PO Q8HP PRN PRN Reason: ANXIETY/SEDATION Magnesium Hydroxide (Milk Of Magnesia) 30 ml PO DAILYP PRN PRN Reason: Constipation Naloxone HCl (Narcan) 0.1 mg IV Q2MIN PRN PRN Reason: Opiate Reversal Nicotine (Nicoderm) 7 mg TOPICAL DAILY@1000 [facility] Last Admin: 09/18/16 09:46 Dose: Not Given Ondansetron HCl (Zofran Odt) 4 mg SL Q6HP PRN PRN Reason: Nausea And Vomiting Oxycodone/Acetaminophen (Percocet 5-325 Mg) 1 - 2 tab PO Q4-6HP PRN PRN Reason: Pain Last Admin: 09/18/16 12:32 Dose: 1 tab Quetiapine Fumarate (Seroquel) 75 mg PO HS [facility] Sertraline HCl (Zoloft) 50 mg PO DAILY [facility] Last Admin: 09/18/16 09:46 Dose: 50 mg Sodium Chloride (Saline Flush) 10 ml IV Q8 [facility] Last Admin: 09/18/16 12:33 Dose: 10 ml Trazodone HCl (Desyrel) 25 mg PO HSP PRN PRN Reason: Insomnia Vancomycin HCl (Vancomycin Per Pharmacy) 1 order IV UD [facility] Medical - PN: A/P - Time Spent With Patient Total time spent is greater than 50% in coordination of care (as documented) at patient's floor/unit and/or counseling patient: (1) Bipolar disorder with depression Status: Chronic (2) Cellulitis of left foot Status: Acute (3) Osteomyelitis of ankle or foot Status: Acute (4) Wound dehiscence, surgical Problem details: September 27, 2016: Patient seen and evaluated at bedside today dressing is changed. The incision is well coapted with mild eschar at the distal aspect. He has no major issues. He did not want to see the partially empty dictated foot this morning. He understands that he is likely be transferred to the long-term rehabilitation facility today. He understands that he is to remain completely nonweightbearing to the foot at all times. He does admit to having to walk on the foot on occasion but tries best to stay off of it. It was reiterated that he absolutely needs to stay off it all times. Status: Acute - Narrative A/P Narrative: see note from earlier today - this note opened in error. Medical - PN: Qual - Stroke Symptom Onset Unknown: No - VTE Deep Vein Thrombosis/Pulmonary Embolism Present on Admission: No
[2016-09-18] MEDS: LOPERAMIDE 2 MG CAPSULE PO PRN ×2 (16:05→20:18)
[2016-09-18] MEDS: QUEtiapine 25 MG TABLET PO SCH (21:32)
[2016-09-19] MEDS: PIPERACILLIN SODIUM/TAZOBACTAM 3.375 GM in DEXTROSE 5% IN WATER 50 ML IV SCH ×3 (00:05→18:12)
[2016-09-19] MEDS: oxyCODONE/APAP 5/325MG TABLET PO PRN ×4 (00:17→17:41)
[2016-09-19] MEDS: ONDANSETRON ODT 4 MG TABLET SL PRN (00:43)
[2016-09-19] MEDS: 0.9 % SODIUM CHLORIDE 10 ML SYRINGE IV SCH ×3 (05:48→23:53)
[2016-09-19 06:23] LABS: Basophils # (Auto) 0 K/mcL (0.0-0.3); Basophils % (Auto) 0.7 % (0.0-2.0); Eosinophils # (Auto) 0.4 K/mcL (0.0-0.7); Eosinophils % (Auto) 6.1 % (0.0-7.0); Granulocytes % (Auto) 50.5 % (38.0-78.0); Lymphocytes # (Auto) 2.2 K/mcL (1.5-4.8); Lymphocytes % (Auto) 34.9 % (15.5-49.0); Mean Cell Volume 94.2 fL (80.0-100.0); Mean Corpuscular HGB Conc 34.7 g/dL (31.0-36.0); Mean Corpuscular Hemoglobin 32.7 pg (26.0-34.0); Monocytes # (Auto) 0.5 K/mcL (0.1-0.9); Monocytes % (Auto) 7.8 % (1.0-12.0); Platelet Count 278 K/mcL (140-440); RBC 4.29 M/mcL (4.50-5.90); Red Cell Distribution Width 12.2 % (11.5-14.5)
[2016-09-19 06:44] LABS: C-Reactive Protein 0.5 mg/dl (0.0-0.8)
[2016-09-19 06:45] LABS: ALT/SGPT 17 U/l (0-40); Albumin 3.7 gm/dL (3.2-5.2); Albumin/Globulin Ratio 1.3 (1.0-2.3); Alkaline Phosphatase 77 U/L (39-117); Bilirubin,Direct < 0.2 mg/dL (0.0-0.3); Blood Urea Nitrogen 13 mg/dl (6-20); Gamma Glutamyl Transpeptidase 44 U/L (8-61); Magnesium 1.9 mg/dL (1.6-2.5); Uric Acid 4.3 mg/dL (2.5-8.0)
[2016-09-19] MEDS: ENOXAPARIN 40 MG/0.4 ML SYRINGE SQ SCH (09:03)
[2016-09-19] MEDS: MULTIVIT,THER IRON,CA,FA & MIN 1 TABLET PO SCH (09:03)
[2016-09-19] MEDS: LORazepam 0.5 MG TABLET PO PRN (09:03)
[2016-09-19] MEDS: SERTRALINE 50 MG TABLET PO SCH (09:05)
[2016-09-19] MEDS: busPIRone 5 MG TABLET PO SCH ×2 (10:08→21:19)
[2016-09-19 10:33] LABS: Erythrocyte Sedimentation Rate 16 mm/hr (0-15)
[2016-09-19] MEDS: VANCOMYCIN 1,500 MG in 0.9 % SODIUM CHLORIDE 500 ML IV SCH ×2 (10:56→21:00)
--- NOTE | 2016-09-19 11:46 | Internal Med Progress Note ---
Medical - PN: Subj Patient information: Note initiated : 09/19/16 at 11:44 am Service Date, if different from initiated Date: [] Patient: Rock Narayan 56 y/o M admitted on 09/17/16 for Recheck of left foot wound. Chief Complaint: [] Interval history: September 17, 2016: History of present illness: Mr. Narayan is a 56 year old man with a history of osteomyelitis of his left foot. He apparently has had difficulty keeping appointments, and has generally been noncompliant with care. He had a surgical procedure with Dr. Jc Nolan, which subsequently became infected. He then had a revision with Dr. Morales, and that wound dehisced. He has followed up for wound care at both [facility] and [facility], and was lost to follow-up. He reports that he has been on antibiotics both oral and IV, intermittently for about 60 days now. He tells me that he developed a left foot infection in November 2015. I believe he was treated as an inpatient at [facility], and underwent a surgical procedure with Dr. Nolan. He says the infection then came back and then he followed up with Dr. Morales, and had another surgery. He says he was then treated for approximately 60 days with IV antibiotics from January to March , and that he did not miss an appointment. At some point he was also followed at our wound care clinic, and says he was discharged from there, even though the wound was still a little bit open. He was told it would close up on its own eventually, but he says it did not. He got very frustrated with the occupational nurse, so he decided to stop seeing them. He has been in and out of the emergency room whenever the foot flares up and starts to drain again. He has been treated with various oral antibiotics, including ciprofloxacin and Bactrim. He believes he had an MRI over at [facility] about 6 weeks ago, that showed ongoing osteomyelitis. His sister was diagnosed with lung cancer not long ago, and he decided to forget about his foot while he tried to help her through her cancer. He has been experiencing fever and chills the last few days, and feeling dizzy. He notes he has had intermittent nausea, vomiting, and diarrhea. The diarrhea tends to wax and wane a bit. He also has a mild cough for the last few days, which is nonproductive. He was seen in our emergency room on September 13, and wound cultures were done. I believe he was referred to orthopedics, but did not make that appointment. He presented back to the emergency room today complaining of fever and chills, and extreme frustration with his inability to get his foot healed. He says his sister, who appears to be dying of her cancer, strongly encouraged him to get treatment for his foot, and this is what his family wants as well. He otherwise denies headaches, new eye or ear symptoms, sore throat, chest pain or palpitations, shortness of breath, abdominal pain, hematemesis or bright red blood per rectum, dysuria. He initially denied depression, but then admits he has been very frustrated and that he often cries himself to sleep because he is so frustrated with his health. He has been seeing Dr. Hadley, but apparently Dr. hadley is getting ready to retire. It has been suggested that he get a new primary care physician. Dr. Hadley has been treating him with Seroquel, but the patient's understanding was that this was to help him sleep, and not necessarily for depression or psychosis. He denies any previous diagnosis of depression or bipolar disorder. September 18: Today, the patient notes he is feeling a bit better, and a bit more optimistic about healing his foot. I saw him at the same time that Dr. Flynn saw him this morning. The patient has been noticing increasing foot pain, and does note that he had some sweats last night. Otherwise though he is having less chills, he denies chest pain or palpitations, shortness of breath, abdominal pain, nausea or vomiting or diarrhea or dysuria. Later today he did have a loose stool again, but C. difficile screen was negative. His and son were also in the room with him today, and he reports he is agreeable to trying antidepressants for his depression and anxiety symptoms. September 19: Today, the patient notes he is having increasing pain in his foot. It has been throbbing, and he is having a difficult time keeping it control. His family brought him in a knee brace from home, and he did put that on his left knee, and it appears it might be aggravating the swelling in his left foot. Dr. Jacobs of podiatry has not been in to see him yet. Dr. marie he thinks that they will manage this just with IV antibiotics long-term. PICC line is to be placed today. The patient notes he seems to have abdominal cramping and diarrhea after every dose of IV Zosyn. He is wondering what to do about that. He is still feeling restless and anxious quite frequently. He is not sleeping well. Otherwise, he denies fever or chills, but often feels warm. He denies headaches or dizziness, chest pain or palpitations, shortness of breath, nausea or vomiting, dysuria. - Constitutional Vitals: Vital Signs Temp Pulse Resp BP Pulse Ox 97.2 F 68 20 163/69 95 09/19/16 11:02 09/19/16 04:00 09/19/16 11:02 09/19/16 11:02 09/19/16 11:02 Period Temp Pulse Resp BP Sys/Torrez Pulse Ox Last 24 Hr 97.2 F-98.0 F 68-68 18-20 125-177/69-95 95-97 Intake and Output 09/18/16 09/19/16 09/19/16 21:59 05:59 13:59 Intake Total 100 / 100 290 / 290 790 / 790 Balance 100 / 100 290 / 290 790 / 790 Weight 249 lb 8 oz Intake & Output: Intake & Output 09/18/16 09/19/16 09/19/16 21:59 05:59 13:59 Intake Total 100 / 100 290 / 290 790 / 790 Balance 100 / 100 290 / 290 790 / 790 Weight 249 lb 8 oz Intake: IV 100 / 100 50 / 50 550 / 550 Zosyn 3.375 gm In 100 / 100 50 / 50 50 / 50 Dextrose 5% in Water 50 ml @ 100 mls/hr IV Q6H [facility] Rx#:[id number] Vancomycin 1,500 mg In 500 / 500 Sodium Chloride 0.9% 500 ml @ 333.3 mls/hr IV Q12H [facility] Rx#:[id number] Oral 240 / 240 240 / 240 Other: Meal Breakfast Percent of Meal Consumed 100% Feeding Ability Independent # Voids 2 # Bowel Movements 1 2 On exam, he is awake and alert, but seems a little agitated this morning, regarding the pain in his left foot, and poor sleep. Neck is supple without obvious lymphadenopathy or JVD. Cardiac exam shows regular rate and rhythm. Lungs are clear to auscultation. Next line abdomen is soft. Right lower extremity shows no edema. Left lower extremity: The left foot continues to be quite swollen and very tender to touch. The dressing is clean and dry. He continues to have swelling of the foot and ankle. Today, he is wearing a left leg brace, which is velcroed on quite tightly. This seems to be interfering with relieving the swelling of his foot. The foot is elevated, but not above the level of his abdomen. Neurologic: Is grossly nonfocal. He is a bit more irritable and anxious today, but I attribute this to lack of sleep and uncontrolled pain.. Medical - PN: Obj Da - Labs CBC & Chem 7: 09/19/16 05:15 09/19/16 05:15 Labs: Abnormal Lab Results 09/19/16 09/19/16 09/18/16 08:20 05:15 06:48 RBC 4.29 L Hct 40.4 L ESR 16 H 22 H Creatinine Glucose Triglycerides Vancomycin Trough 15.5 H 09/18/16 09/18/16 04:35 04:35 RBC 4.33 L Hct 40.7 L ESR Creatinine 1.3 H Glucose 108 H Triglycerides 151 H Vancomycin Trough September 18: C. difficile screen is negative. Blood cultures are negative so far. Left foot x-ray: Suspect healing chronic osteomyelitis throughout the first metatarsal. No definite evidence of active osteomyelitis. Diffuse soft tissue swelling in the forefoot and mid foot compatible with cellulitis. September 17: Sed rate elevated at 25. Lactic acid is normal at 2.2 September 13, 2016: -Wound culture right foot: Pseudomonas aeruginosa, pseudomonas aeruginosa #2, Alcaligenes species. The 2 Pseudomonas species are generally sensitive to cefepime, ceftazidime, Cipro, Levaquin, Zosyn, meropenem. The Acaligenes species is sensitive to Levaquin, meropenem, Zosyn, Bactrim, but resistant to cefepime, aztreonam, ceftazidime, and intermittent to ciprofloxacin. It is sensitive to Levaquin. August 25: Blood cultures are negative. August 20: Left foot wound culture grew Pseudomonas aeruginosa, Citrobacter fundi, Klebsiella oxytoca August 01, 2016: MRI of his left foot: Postsurgical changes identified in the first metatarsal. Interval increase in edema and soft tissue swelling throughout the soft tissue at the level of the first metatarsal. Increased marrow edema in the first metatarsal with loss of signal on T1 imaging, consistent with osteomyelitis. The right first metatarsal and metatarsal phalangeal joint July 07: Left foot wound culture grew Klebsiella oxytoca, Acineto baumannii, haemophilus parainfluenza Meds: Medications Acetaminophen (Tylenol) 650 mg PO Q6HP PRN PRN Reason: PAIN/FEVER > 101 Last Admin: 09/18/16 03:45 Dose: 650 mg Buspirone HCl (Buspar) 5 mg PO BID [facility] Last Admin: 09/19/16 10:08 Dose: 5 mg Docusate Sodium (Colace) 100 mg PO BID PRN PRN Reason: Constipation Enoxaparin Sodium (Lovenox) 40 mg SQ DAILY [facility] Last Admin: 09/19/16 09:03 Dose: 40 mg Piperacillin Sod/Tazobactam (Sod 3.375 gm/ Dextrose) 50 mls @ 100 mls/hr IV Q6H [facility] Last Infusion: 09/19/16 10:08 Dose: Infused Vancomycin HCl 1,500 mg/ (Sodium Chloride) 500 mls @ 333.3 mls/hr IV Q12H [facility] Last Admin: 09/19/16 10:56 Dose: 200 mls/hr Ibuprofen (Motrin) 600 mg PO TID [facility] Iron Carb/Multivit/Martin/Folic Acid (Multivitamin W/Minerals) 1 tab PO DAILY [facility] Last Admin: 09/19/16 09:03 Dose: 1 tab Loperamide HCl (Imodium) 2 mg PO PRN PRN PRN Reason: Diarrhea Last Admin: 09/18/16 20:18 Dose: 2 mg Lorazepam (Ativan) 0.5 mg PO Q8HP PRN PRN Reason: ANXIETY/SEDATION Last Admin: 09/19/16 09:03 Dose: 0.5 mg Magnesium Hydroxide (Milk Of Magnesia) 30 ml PO DAILYP PRN PRN Reason: Constipation Morphine Sulfate (Morphine) 2 mg IV Q3HP PRN PRN Reason: Pain Naloxone HCl (Narcan) 0.1 mg IV Q2MIN PRN PRN Reason: Opiate Reversal Nicotine (Nicoderm) 7 mg TOPICAL DAILY@1000 [facility] Last Admin: 09/18/16 09:46 Dose: Not Given Ondansetron HCl (Zofran Odt) 4 mg SL Q6HP PRN PRN Reason: Nausea And Vomiting Last Admin: 09/19/16 00:43 Dose: 4 mg Oxycodone/Acetaminophen (Percocet 5-325 Mg) 1 - 2 tab PO Q4-6HP PRN PRN Reason: Pain Last Admin: 09/19/16 09:03 Dose: 1 tab Quetiapine Fumarate (Seroquel) 75 mg PO HS [facility] Last Admin: 09/18/16 21:32 Dose: 75 mg Sertraline HCl (Zoloft) 50 mg PO DAILY [facility] Last Admin: 09/19/16 09:05 Dose: 50 mg Sodium Chloride (Saline Flush) 10 ml IV Q8 [facility] Last Admin: 09/19/16 05:48 Dose: 10 ml Trazodone HCl (Desyrel) 25 mg PO HSP PRN PRN Reason: Insomnia Vancomycin HCl (Vancomycin Per Pharmacy) 1 order IV UD [facility] Medical - PN: A/P - Time Spent With Patient Total time spent is greater than 50% in coordination of care (as documented) at patient's floor/unit and/or counseling patient: 25 - 35 minutes (1) Bipolar disorder with depression Status: Chronic Current Visit: Yes (2) Cellulitis of left foot Status: Acute Current Visit: No (3) Osteomyelitis of ankle or foot Status: Acute Current Visit: No (4) Wound dehiscence, surgical Status: Acute Current Visit: No - Narrative A/P Narrative: #1. Infectious disease. This patient presents with ongoing infection of his left foot, with wound that has had purulent drainage over the last several weeks.. He is status post placement of hardware, and has an ongoing history of osteomyelitis. This is reportedly been going on for at least 2 to 6 months. He has been noncompliant with follow-up, and lost to follow-up at least twice. He now presents with weakness and fatigue, and chills. Vital signs and labs are not terribly abnormal, presumably because he has been partially treated with antibiotics as an outpatient. He clearly requires more aggressive treatment in an attempt to get this to move towards healing. -Wound cultures from September 13 grew 3 different organisms. ID and sensitivities as noted above. The patient has been treated with Zosyn which covers all 3, but he is reporting significant abdominal cramping and diarrhea after each dose of Zosyn. Reviewing the sensitivities, all 3 organisms are sensitive to meropenem, so I will change the Zosyn to meropenem, to see if he tolerates that better. -We are awaiting a consult with Dr. Jacobs of podiatry. -PICC line should be placed today, for long-term antibiotics. -Continue vancomycin also, to cover the possibility of staph infection. -Regarding his increased foot pain, I advised him not to keep his brace on snugly above the foot, as I think that is contributing to the edema. I also suggested he elevate the foot to above the level of his abdomen. He is also nonweightbearing on the foot, and is using crutches. #2. Psychiatric. Patient denies history of depression, but certainly appears depressed at this point. The reason he was prescribed Seroquel is not entirely clear. We should try to clarify that with Dr. Mena's office. -Patient was started on Zoloft and BuSpar for apparent depression and anxiety. I decreased his Seroquel, as I do not think that is the best first choice for depression. He may need to increase medications at night so he can sleep. He should have a referral to counseling at discharge as well. We also discussed that he needs to not be too obsessed with his foot. We discussed that even if he requires partial foot amputation, he can still go on with his life. He is strongly encouraged to stick with a treatment plan, and not be lost to follow-up again. We discussed that this just makes treatment in the future even more difficult. 3. CODE STATUS: Full code. 4. DVT prophylaxis: Subcu Lovenox. 5. Hypertension. -We will need to check with his primary care office to verify what his blood pressure medication is. The [facility] is working on this now. 6. Obesity. #7. GI. Patient reports episodes of nausea, vomiting, diarrhea. He is at risk for C. difficile colitis, but C. difficile screen was negative . I do wonder if some of his GI symptoms are related to anxiety, and he may also just have some antibiotic associated diarrhea. #8. Tobacco abuse. The patient has long-standing use of chewing tobacco. He has a strong family history of cancer, and absolutely should stop using chewing tobacco. He should be referred to a good oral surgeon for a thorough exam. -He will be offered a NicoDerm patch while he is here. #9. Disposition: Patient will also need to be connected with a new primary care physician. Medical - PN: Qual - Stroke Symptom Onset Unknown: No - VTE Deep Vein Thrombosis/Pulmonary Embolism Present on Admission: No
[2016-09-19] MEDS ORDERED: IMIPENEM/CILASTATIN SODIUM 500 MG in 0.9 % SODIUM CHLORIDE 100 ML IV SCH (13:00)
--- NOTE | 2016-09-19 13:11 | XRay Report ---
CLINICAL INFORMATION: picc position COMPARISON: 12/23/2010 FINDINGS: Heart size, mediastinal pulmonary vessels are normal. Left-sided PICC line tip overlies the SVC right atrial junction in satisfactory position. The lungs are clear. No effusions. IMPRESSION: No acute disease. PICC line satisfactory position Interpreted and Authenticated by: Parish Mora 09/19/16
[2016-09-19] MEDS: NICOTINE 7 MG PATCH TOPICAL SCH (15:20)
[2016-09-19] MEDS: IBUPROFEN 600 MG TABLET PO SCH ×3 (15:29→21:18)
--- NOTE | 2016-09-19 15:55 | Orthopedic Consult Note ---
History of Present Illness - HPI Patient information: Note initiated : 09/19/16 at 3:53 pm Service Date, if different from initiated Date: [] Patient: Rock Narayan 56 y/o M admitted on 09/17/16 for Recheck of left foot wound. Chief Complaint: [bone infection in my foot] Consult date: 09/19/16 Consult reason: other (infection) History of present illness: Dr. Adonay Nolan performed bunion surgery. He has since had wound dehiscence and infection of this foot. Currently there is concern of osteomyelitis due to probing to bone.he is worried because it is related on swollen and causes him severe pain Review of Systems Constitutional: fatigue, malaise Musculoskeletal: joint swelling, limited range of motion, muscle cramps, muscle weakness Musculoskeletal: left: ankle pain, foot pain, foot swelling Integumentary: skin ulcer (left foot first metatarsal) Psychiatric: depression Past History Past medical history: Hypertension Past surgical history: This information was obtained from the patient Patient has a surgical history of: Multiple Back Surgery MULTIPLE KNEE SURGERY Tonsillectomy Cheek bones Nasal Surgery Exploratory abdominal surgery Right fifth finger surgery Pain pump placement and removal x4 Airway opening surgery Past family history: This information was obtained from the patient Cancer - Mother: Stomach cancer, Father: Lung cancer, Sibling: Throat cancer, Diabetes - No History, Heart Disease - Father: MS x3, Hypertension - Father, Kidney Disease - No History, Lung Disease - No History, Mental Illness - No History, Seizures - No History, Stroke - Father, Thyroid Problems - No History, Tuberculosis - No History, Autoimmune Disease - No History, Atherosclerosis - No History, Suicide Risk: Has anyone in your family ever attempted suicide? - No History Past social history: Current every day smoker, Marital Status - , Occupation - Disability, Children - 6 , Caffeine Use - Soda on occasion, Alcohol Use - not currently, Tobacco Use - Chews, Object to Blood Products - no objection, Suicide Risk: Patient denies suicidal ideation - Denies Medications and Allergies Home Medications Medication Instructions Recorded Confirmed Type Ondansetron HCl [Zofran ODT] 4 mg SL Q4-6HP PRN #10 tablet 07/07/16 09/17/16 Rx QUEtiapine [SEROquel] 100 mg PO HS 08/19/16 09/17/16 History Allergies Allergy/AdvReac Type Severity Reaction Status Date / Time codeine AdvReac Mild Vomiting Verified 09/17/16 21:14 Physical Examination - Ankle & Foot left Foot appearance: swelling, erythema, laceration Foot swelling: dorsal, plantar Tenderness with palpation: medial foot Ankle pain relieved by non-weight bearing: No Foot pain worse with weight bearing: Yes Foot pain relieved by non-weight bearing: No ROM: dorsiflexion: 30 degrees ROM: plantarflexion: 30 degrees ROM: eversion: 30 degrees ROM: first MTP joint flexion: 30 degrees ROM: first MTP joint extension: 30 degrees Strength: dorsiflexion: 5/5 Strength: plantarflexion: 5/5 Strength: inversion: 5/5 Strength: eversion: 5/5 Strength: toe extension: 5/5 Strength: toe flexion: 5/5 Instability: anterior drawer: negative, deltoid ligament injury tests: negative , anterior talofibular ligament injury tests: negative, calcaneofibular ligament injury tests: negative, posterior talofibular injury tests: negative Tests: achilles rupture tests: negative, DVT tests: positive, Tinel's sign at sural nerve: negative, Tinel's sign at tarsal tunnel: negative Assessment and Plan (1) Wound dehiscence, surgical Status: Acute Priority: High Comment: Would benefit from long-term IV antibiotics possible amputation of the left first metatarsal. Will review MRI and x-rays and patient course for possible consideration of amputation/ identification of osteomyelitis beyond current diagnosis. Will continue to see patient on daily basis while admitted. Qualifiers: Encounter type: initial encounter (2) Cellulitis Status: Acute (3) Osteomyelitis Status: Acute Qualifiers: Osteomyelitis type: other chronic Osteomyelitis location: foot Laterality : right Qualified Code(s): M86.671 - Other chronic osteomyelitis, right ankle and foot (4) Cellulitis of left foot Status: Acute (5) Osteomyelitis of ankle or foot Status: Acute
--- NOTE | 2016-09-19 18:12 | General Surgery Progress Note ---
Subjective Patient reports: no new complaints (Reviewed Dr. Jacobs's ( Podiatry ) notes. ) Narrative: Note initiated : 09/19/16 at 6:10 pm Service Date, if different from initiated Date: [] Patient: Rock Narayan 56 y/o M admitted on 09/17/16 for Recheck of left foot wound. Chief Complaint: [] Objective Temp Pulse Resp BP Pulse Ox 98.0 F 68 20 156/78 95 09/19/16 16:00 09/19/16 04:00 09/19/16 16:00 09/19/16 16:00 09/19/16 16:00 Status quo. No new changes or interval developments. - Additional Data Intake & Output - Last 24 hours: Intake & Output 09/17/16 09/18/16 09/19/16 09/20/16 05:59 05:59 05:59 05:59 Intake Total 1100 / 1150 3180 / 3180 1430 / 1430 Output Total 3 / 3 Balance 1100 / 1150 3177 / 3177 1430 / 1430 Weight 243 lb 249 lb 8 oz - Labs 09/19/16 05:15 09/19/16 05:15 Diabetes panel 09/19/16 Range/Units 05:15 Sodium 137 (133-145) mmol/L Potassium 4.0 (3.3-5.1) mmol/L Chloride 101 (96-108) mmol/L Carbon Dioxide 22 (22-30) mmol/L BUN 13 (6-20) mg/dl Creatinine 1.0 (0.7-1.2) mg/dl Glucose 95 (70-105) mg/dL Calcium 8.6 (8.6-10.4) mg/dl AST 16 (0-37) U/l ALT 17 (0-40) U/l Alkaline Phosphatase 77 (39-117) U/L Total Protein 6.5 (5.9-8.4) gm/dL Albumin 3.7 (3.2-5.2) gm/dL Triglycerides 127 (<150) mg/dl Calcium panel 09/19/16 Range/Units 05:15 Calcium 8.6 (8.6-10.4) mg/dl Phosphorus 3.3 (2.7-4.5) mg/dL Albumin 3.7 (3.2-5.2) gm/dL Pituitary panel 09/19/16 Range/Units 05:15 Sodium 137 (133-145) mmol/L Potassium 4.0 (3.3-5.1) mmol/L Chloride 101 (96-108) mmol/L Carbon Dioxide 22 (22-30) mmol/L BUN 13 (6-20) mg/dl Creatinine 1.0 (0.7-1.2) mg/dl Glucose 95 (70-105) mg/dL Calcium 8.6 (8.6-10.4) mg/dl Adrenal panel 09/19/16 Range/Units 05:15 Sodium 137 (133-145) mmol/L Potassium 4.0 (3.3-5.1) mmol/L Chloride 101 (96-108) mmol/L Carbon Dioxide 22 (22-30) mmol/L BUN 13 (6-20) mg/dl Creatinine 1.0 (0.7-1.2) mg/dl Glucose 95 (70-105) mg/dL Calcium 8.6 (8.6-10.4) mg/dl Total Bilirubin 0.9 (0.0-1.0) mg/dL AST 16 (0-37) U/l ALT 17 (0-40) U/l Alkaline Phosphatase 77 (39-117) U/L Total Protein 6.5 (5.9-8.4) gm/dL Albumin 3.7 (3.2-5.2) gm/dL Assessment and Plan (1) PAD (peripheral artery disease) Status: Suspected Current Visit: Yes (2) Wound dehiscence, surgical Problem details: Would benefit from long-term IV antibiotics possible amputation of the left first metatarsal. Will review MRI and x-rays and patient course for possible consideration of amputation/identification of osteomyelitis beyond current diagnosis. Will continue to see patient on daily basis while admitted. Status: Acute Current Visit: No - Time Spent With Patient Total time spent is greater than 50% in coordination of care (as documented) at patient's floor/unit and/or counseling patient: A/P Continue current treatment. less than 15 minutes
[2016-09-19] MEDS: QUEtiapine 25 MG TABLET PO SCH (21:19)
[2016-09-19] MEDS: traZODone HCL 50 MG TABLET PO SCH (21:19)
[2016-09-19] MEDS: IMIPENEM/CILASTATIN SODIUM 1,000 MG in 0.9 % SODIUM CHLORIDE 250 ML IV SCH (22:00)
[2016-09-20] MEDS: oxyCODONE/APAP 5/325MG TABLET PO PRN ×6 (00:13→23:46)
[2016-09-20 05:37] LABS: Basophils # (Auto) 0 K/mcL (0.0-0.3); Basophils % (Auto) 0.6 % (0.0-2.0); Eosinophils # (Auto) 0.3 K/mcL (0.0-0.7); Eosinophils % (Auto) 5.7 % (0.0-7.0); Granulocytes % (Auto) 37.1 % (38.0-78.0); Lymphocytes # (Auto) 2.9 K/mcL (1.5-4.8); Lymphocytes % (Auto) 48.9 % (15.5-49.0); Mean Cell Volume 93.5 fL (80.0-100.0); Mean Corpuscular Hemoglobin 32.7 pg (26.0-34.0); Monocytes # (Auto) 0.5 K/mcL (0.1-0.9); Monocytes % (Auto) 7.7 % (1.0-12.0); Platelet Count 241 K/mcL (140-440); Red Cell Distribution Width 12.2 % (11.5-14.5)
[2016-09-20 06:05] LABS: ALT/SGPT 16 U/l (0-40); Albumin 3.5 gm/dL (3.2-5.2); Albumin/Globulin Ratio 1.3 (1.0-2.3); Alkaline Phosphatase 76 U/L (39-117); Bilirubin,Direct < 0.2 mg/dL (0.0-0.3); Blood Urea Nitrogen 11 mg/dl (6-20); Gamma Glutamyl Transpeptidase 42 U/L (8-61); Magnesium 2.1 mg/dL (1.6-2.5); Uric Acid 4.2 mg/dL (2.5-8.0)
[2016-09-20] MEDS: IMIPENEM/CILASTATIN SODIUM 1,000 MG in 0.9 % SODIUM CHLORIDE 250 ML IV SCH ×3 (06:09→21:30)
[2016-09-20] MEDS: 0.9 % SODIUM CHLORIDE 10 ML SYRINGE IV SCH ×3 (06:09→23:46)
[2016-09-20 07:07] LABS: Erythrocyte Sedimentation Rate 17 mm/hr (0-15)
[2016-09-20] MEDS: ENOXAPARIN 40 MG/0.4 ML SYRINGE SQ SCH (08:59)
[2016-09-20] MEDS: LOPERAMIDE 2 MG CAPSULE PO PRN ×3 (08:59→17:51)
[2016-09-20] MEDS: SERTRALINE 50 MG TABLET PO SCH (08:59)
[2016-09-20] MEDS: MULTIVIT,THER IRON,CA,FA & MIN 1 TABLET PO SCH (08:59)
[2016-09-20] MEDS: IBUPROFEN 600 MG TABLET PO SCH ×3 (08:59→21:17)
[2016-09-20] MEDS: busPIRone 5 MG TABLET PO SCH ×2 (08:59→21:18)
[2016-09-20] MEDS: NICOTINE 7 MG PATCH TOPICAL SCH (10:27)
[2016-09-20] MEDS: VANCOMYCIN 1,500 MG in 0.9 % SODIUM CHLORIDE 500 ML IV SCH (10:27)
--- NOTE | 2016-09-20 11:51 | Internal Med Progress Note ---
Medical - PN: Subj Patient information: Note initiated : 09/20/16 at 11:44 am Service Date, if different from initiated Date: [] Patient: Rock Narayan 56 y/o M admitted on 09/17/16 for Recheck of left foot wound. Chief Complaint: [] Interval history: September 17, 2016: History of present illness: Mr. Narayan is a 56 year old man with a history of osteomyelitis of his left foot. He apparently has had difficulty keeping appointments, and has generally been noncompliant with care. He had a surgical procedure with Dr. Jc Nolan, which subsequently became infected. He then had a revision with Dr. Morales, and that wound dehisced. He has followed up for wound care at both [facility] and [facility], and was lost to follow-up. He reports that he has been on antibiotics both oral and IV, intermittently for about 60 days now. He tells me that he developed a left foot infection in November 2015. I believe he was treated as an inpatient at [facility], and underwent a surgical procedure with Dr. Nolan. He says the infection then came back and then he followed up with Dr. Morales, and had another surgery. He says he was then treated for approximately 60 days with IV antibiotics from January to March , and that he did not miss an appointment. At some point he was also followed at our wound care clinic, and says he was discharged from there, even though the wound was still a little bit open. He was told it would close up on its own eventually, but he says it did not. He got very frustrated with the workers compensation coordinator, so he decided to stop seeing them. He has been in and out of the emergency room whenever the foot flares up and starts to drain again. He has been treated with various oral antibiotics, including ciprofloxacin and Bactrim. He believes he had an MRI over at [facility] about 6 weeks ago, that showed ongoing osteomyelitis. His sister was diagnosed with lung cancer not long ago, and he decided to forget about his foot while he tried to help her through her cancer. He has been experiencing fever and chills the last few days, and feeling dizzy. He notes he has had intermittent nausea, vomiting, and diarrhea. The diarrhea tends to wax and wane a bit. He also has a mild cough for the last few days, which is nonproductive. He was seen in our emergency room on September 13, and wound cultures were done. I believe he was referred to orthopedics, but did not make that appointment. He presented back to the emergency room today complaining of fever and chills, and extreme frustration with his inability to get his foot healed. He says his sister, who appears to be dying of her cancer, strongly encouraged him to get treatment for his foot, and this is what his family wants as well. He otherwise denies headaches, new eye or ear symptoms, sore throat, chest pain or palpitations, shortness of breath, abdominal pain, hematemesis or bright red blood per rectum, dysuria. He initially denied depression, but then admits he has been very frustrated and that he often cries himself to sleep because he is so frustrated with his health. He has been seeing Dr. Hadley, but apparently Dr. hadley is getting ready to retire. It has been suggested that he get a new primary care physician. Dr. Hadley has been treating him with Seroquel, but the patient's understanding was that this was to help him sleep, and not necessarily for depression or psychosis. He denies any previous diagnosis of depression or bipolar disorder. September 18: Today, the patient notes he is feeling a bit better, and a bit more optimistic about healing his foot. I saw him at the same time that Dr. Flynn saw him this morning. The patient has been noticing increasing foot pain, and does note that he had some sweats last night. Otherwise though he is having less chills, he denies chest pain or palpitations, shortness of breath, abdominal pain, nausea or vomiting or diarrhea or dysuria. Later today he did have a loose stool again, but C. difficile screen was negative. His and son were also in the room with him today, and he reports he is agreeable to trying antidepressants for his depression and anxiety symptoms. September 19: Today, the patient notes he is having increasing pain in his foot. It has been throbbing, and he is having a difficult time keeping it control. His family brought him in a knee brace from home, and he did put that on his left knee, and it appears it might be aggravating the swelling in his left foot. Dr. Jacobs of podiatry has not been in to see him yet. Dr. marie he thinks that they will manage this just with IV antibiotics long-term. PICC line is to be placed today. The patient notes he seems to have abdominal cramping and diarrhea after every dose of IV Zosyn. He is wondering what to do about that. He is still feeling restless and anxious quite frequently. He is not sleeping well. Otherwise, he denies fever or chills, but often feels warm. He denies headaches or dizziness, chest pain or palpitations, shortness of breath, nausea or vomiting, dysuria 09/20: Still having 8-9/10 pain. He is only using short-acting pain meds. Would like to start some long-acting opiates. He is tolerating the imipenem with no GI side effects. I d/w Dr. Jacobs re: plan. Will plan for at least 6 weeks of IV Abx. Prior cx unlikely to be helpful as the wound is so chronic; Dr. Jacobs may do bone bx if he decides to take pt to debridement. he will review MRI from [facility] first . Pertinent ROS: no fever or cp - Constitutional Vitals: Vital Signs Temp Pulse Resp BP Pulse Ox 97.4 F 56 L 16 156/76 95 09/20/16 07:51 09/20/16 07:51 09/20/16 07:51 09/20/16 07:51 09/20/16 07:51 Period Temp Pulse Resp BP Sys/Torrez Pulse Ox Last 24 Hr 96.7 F-98.8 F 56-88 16-20 144-156/68-81 94-98 Intake and Output 09/19/16 09/20/16 09/20/16 21:59 05:59 13:59 Intake Total 1140 / 1140 1020 / 1020 490 / 490 Balance 1140 / 1140 1020 / 1020 490 / 490 Weight 248 lb 8 oz Intake & Output: Intake & Output 09/19/16 09/20/16 09/20/16 21:59 05:59 13:59 Intake Total 1140 / 1140 1020 / 1020 490 / 490 Balance 1140 / 1140 1020 / 1020 490 / 490 Weight 248 lb 8 oz Intake: IV 500 / 500 250 / 250 250 / 250 Primaxin 1,000 mg In 250 / 250 250 / 250 Sodium Chloride 0.9% 250 ml @ 250 mls/hr IV Q8H [facility] Rx#:[id number] Vancomycin 1,500 mg In 500 / 500 Sodium Chloride 0.9% 500 ml @ 333.3 mls/hr IV Q12H [facility] Rx#:[id number] Oral 640 / 640 770 / 770 240 / 240 Other: Meal sandwich, jello Breakfast Percent of Meal Consumed 100% 100% Feeding Ability Independent Independent # Voids 1 1 # Bowel Movements 1 Exam: General: NAD CV: RRR Resp: CTAB Abd: soft, nd/nt. +BT Ext. left foot is wrapped in gauze and he is wearing a left leg brace. Neuro: Alert and oriented 3. No focal motor or sensory deficit Medical - PN: Obj Da - Labs CBC & Chem 7: 09/20/16 04:00 09/20/16 04:00 Labs: Abnormal Lab Results 09/20/16 09/20/16 09/20/16 08:06 04:00 04:00 RBC 4.10 L Hgb 13.4 L Hct 38.4 L Gran % 37.1 L ESR 17 H Creatinine Glucose Calcium 8.3 L Triglycerides Vancomycin Trough 21.3 H* 09/19/16 09/19/16 09/18/16 08:20 05:15 06:48 RBC 4.29 L Hgb Hct 40.4 L Gran % ESR 16 H 22 H Creatinine Glucose Calcium Triglycerides Vancomycin Trough 15.5 H 09/18/16 09/18/16 04:35 04:35 RBC 4.33 L Hgb Hct 40.7 L Gran % ESR Creatinine 1.3 H Glucose 108 H Calcium Triglycerides 151 H Vancomycin Trough Meds: Medications Acetaminophen (Tylenol) 650 mg PO Q6HP PRN PRN Reason: PAIN/FEVER > 101 Last Admin: 09/18/16 03:45 Dose: 650 mg Buspirone HCl (Buspar) 5 mg PO BID [facility] Last Admin: 09/20/16 08:59 Dose: 5 mg Docusate Sodium (Colace) 100 mg PO BID PRN PRN Reason: Constipation Enoxaparin Sodium (Lovenox) 40 mg SQ DAILY [facility] Last Admin: 09/20/16 08:59 Dose: 40 mg Imipenem/Cilastatin Sodium 1, (000 mg/ Sodium Chloride) 250 mls @ 250 mls/hr IV Q8H [facility] Last Infusion: 09/20/16 07:16 Dose: Infused Ibuprofen (Motrin) 600 mg PO TID [facility] Last Admin: 09/20/16 08:59 Dose: 600 mg Iron Carb/Multivit/Emhouse/Folic Acid (Multivitamin W/Minerals) 1 tab PO DAILY [facility] Last Admin: 09/20/16 08:59 Dose: 1 tab Loperamide HCl (Imodium) 2 mg PO PRN PRN PRN Reason: Diarrhea Last Admin: 09/20/16 08:59 Dose: 2 mg Lorazepam (Ativan) 0.5 mg PO Q8HP PRN PRN Reason: ANXIETY/SEDATION Last Admin: 09/19/16 09:03 Dose: 0.5 mg Magnesium Hydroxide (Milk Of Magnesia) 30 ml PO DAILYP PRN PRN Reason: Constipation Morphine Sulfate (Morphine) 2 mg IV Q3HP PRN PRN Reason: Pain Last Admin: 09/20/16 10:36 Dose: 2 mg Naloxone HCl (Narcan) 0.1 mg IV Q2MIN PRN PRN Reason: Opiate Reversal Nicotine (Nicoderm) 7 mg TOPICAL DAILY@1000 [facility] Last Admin: 09/20/16 10:27 Dose: Not Given Ondansetron HCl (Zofran Odt) 4 mg SL Q6HP PRN PRN Reason: Nausea And Vomiting Last Admin: 09/19/16 00:43 Dose: 4 mg Oxycodone/Acetaminophen (Percocet 5-325 Mg) 1 - 2 tab PO Q4-6HP PRN PRN Reason: Pain Last Admin: 09/20/16 10:37 Dose: 1 tab Quetiapine Fumarate (Seroquel) 75 mg PO [facility] Last Admin: 09/19/16 21:19 Dose: 75 mg Sertraline HCl (Zoloft) 50 mg PO DAILY [facility] Last Admin: 09/20/16 08:59 Dose: 50 mg Sodium Chloride (Saline Flush) 10 ml IV Q8 [facility] Last Admin: 09/20/16 06:09 Dose: 10 ml Trazodone HCl (Desyrel) 50 mg PO [facility] Last Admin: 09/19/16 21:19 Dose: 50 mg Vancomycin HCl (Vancomycin Per Pharmacy) 1 order IV UD [facility] Medical - PN: A/P - Time Spent With Patient Total time spent is greater than 50% in coordination of care (as documented) at patient's floor/unit and/or counseling patient: 25 - 35 minutes - Narrative A/P Narrative: #L foot osteomyelitis -x 2-6 months -MRI done at [facility] showing OM. d/w Dr. Jacobs of podiatry who will review MRI and discern need for debridement. Would like to tx with long-term IV Abx first--at least 6 weeks. (start date 09/17) -didn't tolerate Zosyn d/t GI cramping. Changed to impenem 09/19. Has been on vanc since 09/17. Consider changing to empiric daptomycin and ceftriaxone on discharge for once daily dosing. -PICC placed 09/19 -NWB R foot # L foot pain--currently on Percocet and IV morphine. Will add MS Contin and change IV morphine to IV Dilaudid. Encourage pt to try po pain meds first. #Psychiatric. -situational depression--unclear why he is on Seroquel (states it is for sleep). Dr. Torres decreased his Seroquel and started Zoloft and Buspar. cont to monitor and titrate as needed. # Hypertension. -We will need to check with his primary care office to verify what his blood pressure medication is. His BP is within adequate inpatient control off meds here. # Obesity. #GI. Patient reports episodes of nausea, vomiting, diarrhea. He is at risk for C. difficile colitis, but C. difficile screen was negative . Cont PRN imodium # Tobacco abuse. The patient has long-standing use of chewing tobacco. He has a strong family history of cancer, and absolutely should stop using chewing tobacco. He should be referred to a good oral surgeon for a thorough exam. -He will be offered a NicoDerm patch while he is here. #Disposition: Patient will also need to be connected with a new primary care physician. CODE STATUS: Full code. #DVT prophylaxis: Subcu Lovenox. Medical - PN: Qual - Stroke Symptom Onset Unknown: No - VTE Deep Vein Thrombosis/Pulmonary Embolism Present on Admission: No
[2016-09-20] MEDS: HYDROmorphone 2 MG/ML SYRINGE IV PRN ×4 (13:30→23:45)
--- NOTE | 2016-09-20 14:05 | Orthopedic Progress Note ---
Subjective Patient information: Note initiated : 09/20/16 at 2:03 pm Service Date, if different from initiated Date: [] Patient: Rock Narayan 56 y/o M admitted on 09/17/16 for Recheck of left foot wound. Chief Complaint: [open wound left foot] Principal diagnosis: osteomyelitis left foot Interval history: some increased pain and swelling today left foot no major concerns that have changed. Pertinent ROS: nephew chills nausea and vomiting short of breath or other systemic signs of infection Objective Vital signs: Vital Signs Temp Pulse Resp BP BP Pulse Ox 09/20/16 12:00 98.0 F 67 16 159/92 96 09/20/16 07:51 97.4 F 56 L 16 156/76 95 09/20/16 07:41 96.7 F L 16 152/68 94 09/20/16 07:18 64 16 09/20/16 04:00 97.4 F 56 L 16 144/81 09/20/16 00:00 98.2 F 88 16 95 09/19/16 19:48 98 09/19/16 19:47 98.8 F 78 18 98 09/19/16 16:00 98.0 F 20 156/78 95 Intake and Output 09/20/16 09/20/16 09/20/16 05:59 13:59 21:59 Intake Total 1020 / 1020 490 / 490 Balance 1020 / 1020 490 / 490 Intake: IV 250 / 250 250 / 250 Primaxin 1,000 mg In 250 / 250 250 / 250 Sodium Chloride 0.9% 250 ml @ 250 mls/hr IV Q8H [facility] Rx#:[id number] Oral 770 / 770 240 / 240 Other: Meal sandwich, jello Breakfast Percent of Meal Consumed 100% 100% Feeding Ability Independent Independent # Voids 1 1 # Bowel Movements 1 Intake & Output: Intake & Output 09/20/16 09/20/16 09/20/16 05:59 13:59 21:59 Intake Total 1020 / 1020 490 / 490 Balance 1020 / 1020 490 / 490 Intake: IV 250 / 250 250 / 250 Primaxin 1,000 mg In 250 / 250 250 / 250 Sodium Chloride 0.9% 250 ml @ 250 mls/hr IV Q8H [facility] Rx#:[id number] Oral 770 / 770 240 / 240 Other: Meal sandwich, jello Breakfast Percent of Meal Consumed 100% 100% Feeding Ability Independent Independent # Voids 1 1 # Bowel Movements 1 Incision: Yes draining, Yes red, Yes swollen, Yes inflamed Incision clean and dry: No Dressing: Yes intact Weight bearing status: non (nonweightbearing left foot) Neurological exam IM: Yes abnormal gait Extremities exam IM: Yes joint swelling, Yes pedal edema, Yes tenderness - Periperhal Pulses Peripheral pulses: 1+: dorsalis pedis (L), posterior tibialis (L), 2+: dorsalis pedis (R), posterior tibialis (R) - Diagnostic Results Ankle MRI: image reviewed (does show sinus violation of the first metatarsal which is not evident on x-ray, need new MRI to evaluate changes in past 2 months ) - Labs CBC & BMP: 09/20/16 04:00 09/20/16 04:00 Labs: 09/20/16 09/19/16 09/18/16 04:00 05:15 04:35 Hgb 13.4 L 14.0 14.1 Hct 38.4 L 40.4 L 40.7 L Assessment and Plan (1) Wound dehiscence, surgical Status: Acute Priority: High Comment: 09-20-16: Would benefit from long-term IV antibiotics possible amputation of the left first metatarsal. Will review MRI and x-rays and patient course for possible consideration of amputation/ identification of osteomyelitis beyond current diagnosis. Will continue to see patient on daily basis while admitted. 09-20-16: after reviewing the report and images of the MRI from [facility] it is apparent that there is infection in the first metatarsal left foot. There appears to be sinus tract extending from the incision to the bone with extensive bone edema. It is important to evaluate a new MRI with and without contrast to evaluate changes prior to any surgical planning also evaluate progress if he is responsive to intravenous antibiotic therapy. Given the severity of the prognosis of a first ray amputation exhaustive therapy with intravenous antibiotics should be performed. Considering taking a bone biopsy from his possible sinus tract following new MRI to evaluate possible antibiotic therapy with culture driven sensitivity. Assuming the infection can be eradicated and there is no residual bone infection debridement and closure of wound may be performed, this is fairly unlikely however. Decision for length of stay will be determined from a podiatric perspective following the return of the magnetic resonance imaging which should be performed shortly. In the meanwhile the foot will be dressed with dry gauze changed daily and as needed. Qualifiers: Encounter type: subsequent encounter Qualified Code(s): T81.31XD - Disruption of external operation (surgical) wound, not elsewhere classified, subsequent encounter (2) Cellulitis Status: Acute (3) Osteomyelitis Status: Acute Qualifiers: Osteomyelitis type: other chronic Osteomyelitis location: foot Laterality : right Qualified Code(s): M86.671 - Other chronic osteomyelitis, right ankle and foot (4) Cellulitis of left foot Status: Acute (5) Osteomyelitis of ankle or foot Status: Acute
[2016-09-20] MEDS: QUEtiapine 25 MG TABLET PO SCH (21:16)
[2016-09-20] MEDS: traZODone HCL 50 MG TABLET PO SCH (21:18)
[2016-09-20] MEDS: morphine 15 MG TAB.SR.12H PO SCH (21:18)
[2016-09-21] MEDS: HYDROmorphone 2 MG/ML SYRINGE IV PRN ×5 (05:00→22:14)
[2016-09-21] MEDS: oxyCODONE/APAP 5/325MG TABLET PO PRN ×4 (05:00→23:43)
[2016-09-21 05:47] LABS: Basophils # (Auto) 0 K/mcL (0.0-0.3); Basophils % (Auto) 0.6 % (0.0-2.0); Eosinophils # (Auto) 0.3 K/mcL (0.0-0.7); Eosinophils % (Auto) 5.7 % (0.0-7.0); Granulocytes % (Auto) 44.8 % (38.0-78.0); Lymphocytes # (Auto) 2.3 K/mcL (1.5-4.8); Lymphocytes % (Auto) 40.9 % (15.5-49.0); Mean Cell Volume 92.7 fL (80.0-100.0); Mean Corpuscular HGB Conc 35.1 g/dL (31.0-36.0); Mean Corpuscular Hemoglobin 32.5 pg (26.0-34.0); Monocytes # (Auto) 0.4 K/mcL (0.1-0.9); Platelet Count 198 K/mcL (140-440); RBC 4.05 M/mcL (4.50-5.90); Red Cell Distribution Width 12.2 % (11.5-14.5)
[2016-09-21] MEDS: IMIPENEM/CILASTATIN SODIUM 1,000 MG in 0.9 % SODIUM CHLORIDE 250 ML IV SCH ×3 (05:54→22:38)
[2016-09-21 06:12] LABS: ALT/SGPT 19 U/l (0-40); Albumin 3.7 gm/dL (3.2-5.2); Albumin/Globulin Ratio 1.4 (1.0-2.3); Alkaline Phosphatase 70 U/L (39-117); Bilirubin,Direct < 0.2 mg/dL (0.0-0.3); Blood Urea Nitrogen 13 mg/dl (6-20); Gamma Glutamyl Transpeptidase 41 U/L (8-61); Uric Acid 5.1 mg/dL (2.5-8.0)
[2016-09-21 06:33] LABS: Erythrocyte Sedimentation Rate 16 mm/hr (0-15)
[2016-09-21] MEDS: 0.9 % SODIUM CHLORIDE 10 ML SYRINGE IV SCH ×3 (06:49→20:50)
[2016-09-21] MEDS: morphine 15 MG TAB.SR.12H PO SCH ×2 (08:27→20:47)
[2016-09-21] MEDS: busPIRone 5 MG TABLET PO SCH ×2 (08:28→20:47)
[2016-09-21] MEDS: ONDANSETRON ODT 4 MG TABLET SL PRN (08:28)
[2016-09-21] MEDS: ENOXAPARIN 40 MG/0.4 ML SYRINGE SQ SCH (08:28)
[2016-09-21] MEDS: SERTRALINE 50 MG TABLET PO SCH (08:28)
[2016-09-21] MEDS: MULTIVIT,THER IRON,CA,FA & MIN 1 TABLET PO SCH (08:28)
[2016-09-21] MEDS: IBUPROFEN 600 MG TABLET PO SCH ×3 (08:28→20:47)
[2016-09-21] MEDS: VANCOMYCIN 1,000 MG in 0.9 % SODIUM CHLORIDE 250 ML IV SCH ×2 (11:08→20:49)
[2016-09-21] MEDS: NICOTINE 7 MG PATCH TOPICAL SCH (11:08)
--- NOTE | 2016-09-21 12:47 | Internal Med Progress Note ---
Medical - PN: Subj Patient information: Note initiated : 09/21/16 at 12:45 pm Service Date, if different from initiated Date: [] Patient: Rock Narayan 56 y/o M admitted on 09/17/16 for Recheck of left foot wound. Chief Complaint: [] Interval history: September 17, 2016: History of present illness: Mr. Narayan is a 56 year old man with a history of osteomyelitis of his left foot. He apparently has had difficulty keeping appointments, and has generally been noncompliant with care. He had a surgical procedure with Dr. Jc Nolan, which subsequently became infected. He then had a revision with Dr. Morales, and that wound dehisced. He has followed up for wound care at both [facility] and [facility], and was lost to follow-up. He reports that he has been on antibiotics both oral and IV, intermittently for about 60 days now. He tells me that he developed a left foot infection in November 2015. I believe he was treated as an inpatient at [facility], and underwent a surgical procedure with Dr. Nolan. He says the infection then came back and then he followed up with Dr. Morales, and had another surgery. He says he was then treated for approximately 60 days with IV antibiotics from January to March , and that he did not miss an appointment. At some point he was also followed at our wound care clinic, and says he was discharged from there, even though the wound was still a little bit open. He was told it would close up on its own eventually, but he says it did not. He got very frustrated with the oncology nurse navigator, so he decided to stop seeing them. He has been in and out of the emergency room whenever the foot flares up and starts to drain again. He has been treated with various oral antibiotics, including ciprofloxacin and Bactrim. He believes he had an MRI over at [facility] about 6 weeks ago, that showed ongoing osteomyelitis. His sister was diagnosed with lung cancer not long ago, and he decided to forget about his foot while he tried to help her through her cancer. He has been experiencing fever and chills the last few days, and feeling dizzy. He notes he has had intermittent nausea, vomiting, and diarrhea. The diarrhea tends to wax and wane a bit. He also has a mild cough for the last few days, which is nonproductive. He was seen in our emergency room on September 13, and wound cultures were done. I believe he was referred to orthopedics, but did not make that appointment. He presented back to the emergency room today complaining of fever and chills, and extreme frustration with his inability to get his foot healed. He says his sister, who appears to be dying of her cancer, strongly encouraged him to get treatment for his foot, and this is what his family wants as well. He otherwise denies headaches, new eye or ear symptoms, sore throat, chest pain or palpitations, shortness of breath, abdominal pain, hematemesis or bright red blood per rectum, dysuria. He initially denied depression, but then admits he has been very frustrated and that he often cries himself to sleep because he is so frustrated with his health. He has been seeing Dr. Hadley, but apparently Dr. hadley is getting ready to retire. It has been suggested that he get a new primary care physician. Dr. Hadley has been treating him with Seroquel, but the patient's understanding was that this was to help him sleep, and not necessarily for depression or psychosis. He denies any previous diagnosis of depression or bipolar disorder. September 18: Today, the patient notes he is feeling a bit better, and a bit more optimistic about healing his foot. I saw him at the same time that Dr. Flynn saw him this morning. The patient has been noticing increasing foot pain, and does note that he had some sweats last night. Otherwise though he is having less chills, he denies chest pain or palpitations, shortness of breath, abdominal pain, nausea or vomiting or diarrhea or dysuria. Later today he did have a loose stool again, but C. difficile screen was negative. His and son were also in the room with him today, and he reports he is agreeable to trying antidepressants for his depression and anxiety symptoms. September 19: Today, the patient notes he is having increasing pain in his foot. It has been throbbing, and he is having a difficult time keeping it control. His family brought him in a knee brace from home, and he did put that on his left knee, and it appears it might be aggravating the swelling in his left foot. Dr. Sahu of podiatry has not been in to see him yet. Dr. marie he thinks that they will manage this just with IV antibiotics long-term. PICC line is to be placed today. The patient notes he seems to have abdominal cramping and diarrhea after every dose of IV Zosyn. He is wondering what to do about that. He is still feeling restless and anxious quite frequently. He is not sleeping well. Otherwise, he denies fever or chills, but often feels warm. He denies headaches or dizziness, chest pain or palpitations, shortness of breath, nausea or vomiting, dysuria 09/20: Still having 8-9/10 pain. He is only using short-acting pain meds. Would like to start some long-acting opiates. He is tolerating the imipenem with no GI side effects. I d/w Dr. Sahu re: plan. Will plan for at least 6 weeks of IV Abx. Prior cx unlikely to be helpful as the wound is so chronic; Dr. Sahu may do bone bx if he decides to take pt to debridement. he will review MRI from [facility] first . 09/21: patient seen and examined. No acute overnight events, been reasonably controlled at this point in time. He is on sustained release morphine and when necessary oxycodone the patient is scheduled to have an MRI this afternoon, this MRI was recommended for further plan of care. Dr. SAHU, the oncology nurse navigator and Dr. Peck the credentials specialist following the patient. The patient notes that he has diarrhea His C. difficile has been tested and is negative. Labs are unremarkable. He is afebrile and in apparently stable. He is presently on broad-spectrum antibiotics. Wound culture is growing gram-negative activity However, at this point in time, he will need an accurate bone culture to determine the right antibacterial agent. Pertinent ROS: Denies headache, dizziness Denies chest pain, palpitations Denies cough or shortness of breath Denies abdominal pain, or vomiting. (some nausea this AM which resolved) - Constitutional Vitals: Vital Signs Temp Pulse Resp BP Pulse Ox 97.6 F 57 L 20 142/76 95 09/21/16 11:48 09/21/16 04:00 09/21/16 11:48 09/21/16 11:48 09/21/16 11:48 Period Temp Pulse Resp BP Sys/Torrez Pulse Ox Last 24 Hr 97 F-98.0 F 57-72 16-20 134-171/71-104 95-97 Intake and Output 09/20/16 09/21/16 09/21/16 21:59 05:59 13:59 Intake Total 750 / 750 1250 / 1250 250 / 250 Balance 750 / 750 1250 / 1250 250 / 250 Weight 248 lb Intake & Output: Intake & Output 09/20/16 09/21/16 09/21/16 21:59 05:59 13:59 Intake Total 750 / 750 1250 / 1250 250 / 250 Balance 750 / 750 1250 / 1250 250 / 250 Weight 248 lb Intake: IV 250 / 250 250 / 250 250 / 250 Primaxin 1,000 mg In 250 / 250 250 / 250 250 / 250 Sodium Chloride 0.9% 250 ml @ 250 mls/hr IV Q8H [facility] Rx#:[id number] Oral 500 / 500 1000 / 1000 Other: Meal Dinner Percent of Meal Consumed 100% Feeding Ability Independent # Voids 2 # Bowel Movements 1 Exam: Constitutional; Afebrile, cooperative, alert, not in distress. Eyes- No icterus, , No periorbital swelling Ears- Ext ear normal, hearing normal to conversation. Neck- Midline trachea, supple Respiratory system: Air Entry equal on both sides, No crackles or wheezing, no rhonchi. CVS- Rate rhythm regular, S1,S2 heard, no gallop, no rub. Abdomen- Soft nontender abdomen, no organomegaly, no tenderness, no guarding or rigidity, [employer] SAL[employer] REPRESENTATIVE- AOOx3, moving all extremities, no gross focal deficit noted. Medical - PN: Obj Da - Labs CBC & Chem 7: 09/21/16 04:55 09/21/16 04:55 Labs: Abnormal Lab Results 09/21/16 09/21/16 09/20/16 04:55 04:55 08:06 RBC 4.05 L Hgb 13.2 L Hct 37.6 L Gran % ESR 16 H Calcium 8.4 L Vancomycin Trough 21.3 H* 09/20/16 09/20/16 09/19/16 04:00 04:00 08:20 RBC 4.10 L Hgb 13.4 L Hct 38.4 L Gran % 37.1 L ESR 17 H Calcium 8.3 L Vancomycin Trough 15.5 H 09/19/16 05:15 RBC 4.29 L Hgb Hct 40.4 L Gran % ESR 16 H Calcium Vancomycin Trough Meds: Medications Acetaminophen (Tylenol) 650 mg PO Q6HP PRN PRN Reason: PAIN/FEVER > 101 Last Admin: 09/18/16 03:45 Dose: 650 mg Buspirone HCl (Buspar) 5 mg PO BID [facility] Last Admin: 09/21/16 08:28 Dose: 5 mg Docusate Sodium (Colace) 100 mg PO BID PRN PRN Reason: Constipation Enoxaparin Sodium (Lovenox) 40 mg SQ DAILY [facility] Last Admin: 09/21/16 08:28 Dose: 40 mg Hydromorphone HCl (Dilaudid) 0.5 mg IV Q2HP PRN PRN Reason: Pain Last Admin: 09/21/16 09:19 Dose: 0.5 mg Imipenem/Cilastatin Sodium 1, (000 mg/ Sodium Chloride) 250 mls @ 250 mls/hr IV Q8H [facility] Last Infusion: 09/21/16 07:11 Dose: Infused Vancomycin HCl 1,000 mg/ (Sodium Chloride) 250 mls @ 250 mls/hr IV Q12H [facility] Last Admin: 09/21/16 11:08 Dose: 250 mls/hr Ibuprofen (Motrin) 600 mg PO TID [facility] Last Admin: 09/21/16 08:28 Dose: 600 mg Iron Carb/Multivit/[place]/Folic Acid (Multivitamin W/Minerals) 1 tab PO DAILY [facility] Last Admin: 09/21/16 08:28 Dose: 1 tab Loperamide HCl (Imodium) 2 mg PO PRN PRN PRN Reason: Diarrhea Last Admin: 09/20/16 17:51 Dose: 2 mg Lorazepam (Ativan) 0.5 mg PO Q8HP PRN PRN Reason: ANXIETY/SEDATION Last Admin: 09/19/16 09:03 Dose: 0.5 mg Magnesium Hydroxide (Milk Of Magnesia) 30 ml PO DAILYP PRN PRN Reason: Constipation Morphine Sulfate (Ms Contin) 15 mg PO BID [facility] Last Admin: 09/21/16 08:27 Dose: 15 mg Naloxone HCl (Narcan) 0.1 mg IV Q2MIN PRN PRN Reason: Opiate Reversal Nicotine (Nicoderm) 7 mg TOPICAL DAILY@1000 [facility] Last Admin: 09/21/16 11:08 Dose: Not Given Ondansetron HCl (Zofran Odt) 4 mg SL Q6HP PRN PRN Reason: Nausea And Vomiting Last Admin: 09/21/16 08:28 Dose: 4 mg Oxycodone/Acetaminophen (Percocet 5-325 Mg) 1 - 2 tab PO Q4-6HP PRN PRN Reason: Pain Last Admin: 09/21/16 05:00 Dose: 2 tab Quetiapine Fumarate (Seroquel) 75 mg PO [facility] Last Admin: 09/20/16 21:16 Dose: 75 mg Sertraline HCl (Zoloft) 50 mg PO DAILY [facility] Last Admin: 09/21/16 08:28 Dose: 50 mg Sodium Chloride (Saline Flush) 10 ml IV Q8 [facility] Last Admin: 09/21/16 06:49 Dose: 10 ml Trazodone HCl (Desyrel) 50 mg PO [facility] Last Admin: 09/20/16 21:18 Dose: 50 mg Vancomycin HCl (Vancomycin Per Pharmacy) 1 order IV UD [facility] Medical - PN: A/P - Time Spent With Patient Total time spent is greater than 50% in coordination of care (as documented) at patient's floor/unit and/or counseling patient: - Narrative A/P Narrative: A/P Left Foot ostemyelitis Acute vs Acute on Chr MRI pending today Dr Sahu may decide to debride vs ampuate. Plan of IV antibiotics will be decided after surgical intervention PICC in place On Vanco 09/17 Imipenum 09/19, was on zosyn priolr to thyat (stopped due to gi upset) FOot pain on ms contin, oxycodone, ibuprofen, continue same Depression On seroquel buspar and zoloft continue same. chr diarrhea: start on probioitics , cdiff is neg. Obesity DVT hep sq Diet regular Full code Disp: Pt will need new pcp at discharge #L foot osteomyelitis -x 2-6 months -MRI done at [facility] showing OM. d/w Dr. Sahu of podiatry who will review MRI and discern need for debridement. Would like to tx with long-term IV Abx first--at least 6 weeks. (start date 09/17) -didn't tolerate Zosyn d/t GI cramping. Changed to impenem 09/19. Has been on vanc since 09/17. Consider changing to empiric daptomycin and ceftriaxone on discharge for once daily dosing. -PICC placed 09/19 -NWB R foot # L foot pain--currently on Percocet and IV morphine. Will add MS Contin and change IV morphine to IV Dilaudid. Encourage pt to try po pain meds first. #Psychiatric. -situational depression--unclear why he is on Seroquel (states it is for sleep). Dr. Torres decreased his Seroquel and started Zoloft and Buspar. cont to monitor and titrate as needed. # Hypertension. -We will need to check with his primary care office to verify what his blood pressure medication is. His BP is within adequate inpatient control off meds here. # Obesity. #GI. Patient reports episodes of nausea, vomiting, diarrhea. He is at risk for C. difficile colitis, but C. difficile screen was negative . Cont PRN imodium # Tobacco abuse. The patient has long-standing use of chewing tobacco. He has a strong family history of cancer, and absolutely should stop using chewing tobacco. He should be referred to a good oral surgeon for a thorough exam. -He will be offered a NicoDerm patch while he is here. #Disposition: Patient will also need to be connected with a new primary care physician. CODE STATUS: Full code. #DVT prophylaxis: Subcu Lovenox. Medical - PN: Qual - Stroke Symptom Onset Unknown: No - VTE Deep Vein Thrombosis/Pulmonary Embolism Present on Admission: No
--- NOTE | 2016-09-21 16:00 | Orthopedic Progress Note ---
Subjective Patient information: Note initiated : 09/21/16 at 3:58 pm Service Date, if different from initiated Date: [] Patient: Rock Narayan 56 y/o M admitted on 09/17/16 for Recheck of left foot wound. Chief Complaint: [wound left foot] Principal diagnosis: osteomyelitis left foot Interval history: patient has not had any major signs of fever chills nausea or vomiting during past 24 hours Pertinent ROS: pain in the left lower extremity limited to dorsum of the foot Objective Vital signs: Vital Signs Temp Pulse Resp BP BP Pulse Ox 09/21/16 15:24 97.3 F 20 149/75 94 09/21/16 11:48 97.6 F 20 142/76 95 09/21/16 07:17 97 F 16 138/71 95 09/21/16 04:00 97.0 F 57 L 18 134/73 95 09/20/16 23:50 98.0 F 57 L 18 171/74 96 09/20/16 20:00 97.2 F 64 18 137/91 97 09/20/16 16:00 98.0 F 72 16 147/104 97 Intake and Output 09/21/16 09/21/16 09/21/16 05:59 13:59 21:59 Intake Total 1250 / 1250 250 / 250 800 / 800 Balance 1250 / 1250 250 / 250 800 / 800 Intake: IV 250 / 250 250 / 250 Primaxin 1,000 mg In 250 / 250 250 / 250 Sodium Chloride 0.9% 250 ml @ 250 mls/hr IV Q8H [facility] Rx#:[id number] Oral 1000 / 1000 800 / 800 Other: Meal Dinner Percent of Meal Consumed 100% Feeding Ability Independent # Voids 2 2 Intake & Output: Intake & Output 09/21/16 09/21/16 09/21/16 05:59 13:59 21:59 Intake Total 1250 / 1250 250 / 250 800 / 800 Balance 1250 / 1250 250 / 250 800 / 800 Intake: IV 250 / 250 250 / 250 Primaxin 1,000 mg In 250 / 250 250 / 250 Sodium Chloride 0.9% 250 ml @ 250 mls/hr IV Q8H [facility] Rx#:[id number] Oral 1000 / 1000 800 / 800 Other: Meal Dinner Percent of Meal Consumed 100% Feeding Ability Independent # Voids 2 2 Incision: Yes red, Yes swollen, Yes inflamed Incision clean and dry: No Dressing: Yes intact Weight bearing status: non (2 left foot) Neurological exam IM: Yes alert, Yes motor sensory deficit, Yes oriented X3 Extremities exam IM: Yes pedal edema, Yes tenderness - Periperhal Pulses Peripheral pulses: 1+: dorsalis pedis (L), posterior tibialis (L), 2+: dorsalis pedis (R), posterior tibialis (R) - Diagnostic Results Ankle MRI: image reviewed (shows extensive osteomyelitis of left first metatarsal extending to the open incision) - Labs CBC & BMP: 09/21/16 04:55 09/21/16 04:55 Labs: 09/21/16 09/20/16 09/19/16 04:55 04:00 05:15 Hgb 13.2 L 13.4 L 14.0 Hct 37.6 L 38.4 L 40.4 L 09/18/16 04:35 Hgb 14.1 Hct 40.7 L Assessment and Plan (1) Wound dehiscence, surgical Status: Acute Priority: High Comment: 09-20-16: Would benefit from long-term IV antibiotics possible amputation of the left first metatarsal. Will review MRI and x-rays and patient course for possible consideration of amputation/ identification of osteomyelitis beyond current diagnosis. Will continue to see patient on daily basis while admitted. 09-20-16: after reviewing the report and images of the MRI from [facility] it is apparent that there is infection in the first metatarsal left foot. There appears to be sinus tract extending from the incision to the bone with extensive bone edema. It is important to evaluate a new MRI with and without contrast to evaluate changes prior to any surgical planning also evaluate progress if he is responsive to intravenous antibiotic therapy. Given the severity of the prognosis of a first ray amputation exhaustive therapy with intravenous antibiotics should be performed. Considering taking a bone biopsy from his possible sinus tract following new MRI to evaluate possible antibiotic therapy with culture driven sensitivity. Assuming the infection can be eradicated and there is no residual bone infection debridement and closure of wound may be performed, this is fairly unlikely however. Decision for length of stay will be determined from a podiatric perspective following the return of the magnetic resonance imaging which should be performed shortly. In the meanwhile the foot will be dressed with dry gauze changed daily and as needed. September 21, 2016: after reviewing the magnetic resonance image of the left first metatarsal it appears that there is extensive osteomyelitis as is evident with bone marrow edema. this will likely prove to be recalcitrant to intravenous antibiosis. Pending radiographic radiologist assessment of the magnetic resonance image of the left foot for confirmation of suspected osteomyelitis based on initial interpretation. Patient may be a candidate for limited amputation of the left foot possibly first ray amputation (metatarsal and hallux ). Qualifiers: Encounter type: subsequent encounter Qualified Code(s): T81.31XD - Disruption of external operation (surgical) wound, not elsewhere classified, subsequent encounter (2) Cellulitis Status: Acute (3) Osteomyelitis Status: Acute Qualifiers: Osteomyelitis type: other chronic Osteomyelitis location: foot Laterality : right Qualified Code(s): M86.671 - Other chronic osteomyelitis, right ankle and foot (4) Cellulitis of left foot Status: Acute (5) Osteomyelitis of ankle or foot Status: Acute
--- NOTE | 2016-09-21 17:53 | Magnetic Resonance Report ---
CLINICAL INFORMATION: Osteomyelitis of the first ray COMPARISON: Plain films from 09/18/2016. TECHNIQUE: T1 T1 post Magnevist fat saturation T2 and proton density images were obtained the axial sagittal coronal planes of the foot and ankle FINDINGS: There is enhancement and diffuse intramedullary signal on proton density and T2 of the first proximal phalanx and the distal two thirds of the first metatarsal. The first metatarsal also demonstrate moderate thickening/irregularity of cortical and trabecular bone resulting in the mild deformity best seen on plain film. Findings are compatible with osteomyelitis involving the first metatarsal and proximal first phalanx. The marrow signal within the remaining bones of the foot and ankle are normal. Small effusion is noted in the first MTP joint is likely sympathetic but could indicate septic arthritis. Other joint spaces are unremarkable. There is moderate thickening and enhancement of the the plantar fascia at the first and second rays IMPRESSION: 1. Increased intramedullary signal within the mid and distal first metatarsal and the proximal phalanx compatible with osteomyelitis. There is fluid within the first MTP joint which presumably is sympathetic, but could indicate septic arthritis. Moderate cellulitis and plantar fasciitis is seen adjacent to the first and second ray. Interpreted and Authenticated by: Parish Mora 09/21/16
[2016-09-21] MEDS: QUEtiapine 25 MG TABLET PO SCH (20:47)
[2016-09-21] MEDS: LACTOBACILLUS 1 CAPSULE PO SCH (20:47)
[2016-09-21] MEDS: traZODone HCL 50 MG TABLET PO SCH (20:48)
[2016-09-22] MEDS: QUEtiapine 25 MG TABLET PO SCH (01:40)
[2016-09-22] MEDS: HYDROmorphone 2 MG/ML SYRINGE IV PRN ×4 (05:55→19:54)
[2016-09-22] MEDS: IMIPENEM/CILASTATIN SODIUM 1,000 MG in 0.9 % SODIUM CHLORIDE 250 ML IV SCH ×3 (05:55→23:08)
[2016-09-22] MEDS: oxyCODONE/APAP 5/325MG TABLET PO PRN ×4 (05:55→19:55)
[2016-09-22 07:02] LABS: Basophils # (Auto) 0 K/mcL (0.0-0.3); Basophils % (Auto) 0.7 % (0.0-2.0); Eosinophils # (Auto) 0.3 K/mcL (0.0-0.7); Eosinophils % (Auto) 4.6 % (0.0-7.0); Granulocytes % (Auto) 41.6 % (38.0-78.0); Lymphocytes # (Auto) 2.4 K/mcL (1.5-4.8); Lymphocytes % (Auto) 43.9 % (15.5-49.0); Mean Cell Volume 92.3 fL (80.0-100.0); Mean Corpuscular HGB Conc 34.6 g/dL (31.0-36.0); Monocytes # (Auto) 0.5 K/mcL (0.1-0.9); Monocytes % (Auto) 9.2 % (1.0-12.0); Platelet Count 224 K/mcL (140-440); RBC 4.17 M/mcL (4.50-5.90); Red Cell Distribution Width 12.1 % (11.5-14.5)
[2016-09-22] MEDS: 0.9 % SODIUM CHLORIDE 10 ML SYRINGE IV SCH ×3 (07:23→23:08)
[2016-09-22 07:26] LABS: ALT/SGPT 21 U/l (0-40); Albumin 3.5 gm/dL (3.2-5.2); Albumin/Globulin Ratio 1.3 (1.0-2.3); Alkaline Phosphatase 71 U/L (39-117); Bilirubin,Direct < 0.2 mg/dL (0.0-0.3); Blood Urea Nitrogen 15 mg/dl (6-20); Gamma Glutamyl Transpeptidase 40 U/L (8-61); Magnesium 2.1 mg/dL (1.6-2.5); Uric Acid 4.9 mg/dL (2.5-8.0)
[2016-09-22] MEDS: ENOXAPARIN 40 MG/0.4 ML SYRINGE SQ SCH (07:46)
[2016-09-22] MEDS: morphine 15 MG TAB.SR.12H PO SCH ×2 (07:47→21:46)
[2016-09-22] MEDS: LACTOBACILLUS 1 CAPSULE PO SCH ×2 (07:47→21:46)
[2016-09-22] MEDS: MULTIVIT,THER IRON,CA,FA & MIN 1 TABLET PO SCH (07:47)
[2016-09-22] MEDS: busPIRone 5 MG TABLET PO SCH ×2 (07:47→21:46)
[2016-09-22] MEDS: IBUPROFEN 600 MG TABLET PO SCH ×3 (07:47→21:46)
[2016-09-22 08:30] LABS: Erythrocyte Sedimentation Rate 16 mm/hr (0-15)
[2016-09-22] MEDS: NICOTINE 7 MG PATCH TOPICAL SCH (10:30)
[2016-09-22] MEDS: VANCOMYCIN 1,000 MG in 0.9 % SODIUM CHLORIDE 250 ML IV SCH ×2 (10:44→21:47)
[2016-09-22] MEDS: SERTRALINE 50 MG TABLET PO SCH (10:44)
[2016-09-22] MEDS ORDERED: 0.9 % SODIUM CHLORIDE 10 ML SYRINGE IV PRN (10:47)
--- NOTE | 2016-09-22 11:43 | Orthopedic Progress Note ---
Subjective Patient information: Note initiated : 09/22/16 at 11:39 am Service Date, if different from initiated Date: [] Patient: Rock Narayan 56 y/o M admitted on 09/17/16 for Recheck of left foot wound. Chief Complaint: [the left foot is causing me a great discomfort] Principal diagnosis: osteomyelitis left foot Interval history: no chills nausea vomiting or shortness of breath Pertinent ROS: severe left foot pain, throbbing at all times. Worse at night, worse with dependent position. Objective Vital signs: Vital Signs Temp Pulse Resp BP BP BP Pulse Ox 09/22/16 11:02 98.1 F 20 134/63 95 09/22/16 06:24 97.5 F 20 148/68 96 09/22/16 04:00 97.5 F 62 20 137/95 96 09/21/16 23:53 98.0 F 61 16 151/93 96 09/21/16 20:00 97.8 F 76 20 148/96 92 09/21/16 15:24 97.3 F 20 149/75 94 09/21/16 11:48 97.6 F 20 142/76 95 Intake and Output 09/21/16 09/22/16 09/22/16 21:59 05:59 13:59 Intake Total 1300 / 1300 1850 / 1850 610 / 610 Balance 1300 / 1300 1850 / 1850 610 / 610 Intake: IV 500 / 500 250 / 250 250 / 250 Primaxin 1,000 mg In 250 / 250 250 / 250 250 / 250 Sodium Chloride 0.9% 250 ml @ 250 mls/hr IV Q8H [facility] Rx#:[id number] Vancomycin 1,000 mg In 250 / 250 Sodium Chloride 0.9% 250 ml @ 250 mls/hr IV Q12H [facility] Rx#:[id number] Oral 800 / 800 1600 / 1600 360 / 360 Other: Meal Snack Percent of Meal Consumed 100% 100% Feeding Ability Independent # Voids 2 2 Weight 255 lb Intake & Output: Intake & Output 09/21/16 09/22/16 09/22/16 21:59 05:59 13:59 Intake Total 1300 / 1300 1850 / 1850 610 / 610 Balance 1300 / 1300 1850 / 1850 610 / 610 Weight 255 lb Intake: IV 500 / 500 250 / 250 250 / 250 Primaxin 1,000 mg In 250 / 250 250 / 250 250 / 250 Sodium Chloride 0.9% 250 ml @ 250 mls/hr IV Q8H [facility] Rx#:[id number] Vancomycin 1,000 mg In 250 / 250 Sodium Chloride 0.9% 250 ml @ 250 mls/hr IV Q12H [facility] Rx#:[id number] Oral 800 / 800 1600 / 1600 360 / 360 Other: Meal Snack Percent of Meal Consumed 100% 100% Feeding Ability Independent # Voids 2 2 Incision: Yes draining, Yes red, Yes swollen, Yes inflamed Incision clean and dry: No Dressing: Yes intact Weight bearing status: non (nonweightbearing to left lower extremity) Neurological exam IM: Yes alert, Yes altered, Yes motor sensory deficit, Yes oriented X3, Yes motor sensory intact Extremities exam IM: Yes pedal edema, Yes tenderness - Periperhal Pulses Peripheral pulses: 1+: dorsalis pedis (R), posterior tibialis (L), posterior tibialis (R), 2+: dorsalis pedis (L) - Diagnostic Results Ankle MRI: report reviewed (confirms prior diagnosis of osteomyelitis right first metatarsal with septic joint arthritis and infection of the hallux) - Labs CBC & BMP: 09/22/16 06:00 09/22/16 06:00 Labs: 09/22/16 09/21/16 09/20/16 06:00 04:55 04:00 Hgb 13.3 L 13.2 L 13.4 L Hct 38.5 L 37.6 L 38.4 L 09/19/16 09/18/16 05:15 04:35 Hgb 14.0 14.1 Hct 40.4 L 40.7 L Assessment and Plan (1) Wound dehiscence, surgical Status: Acute Priority: High Comment: 09-20-16: Would benefit from long-term IV antibiotics possible amputation of the left first metatarsal. Will review MRI and x-rays and patient course for possible consideration of amputation/ identification of osteomyelitis beyond current diagnosis. Will continue to see patient on daily basis while admitted. 09-20-16: after reviewing the report and images of the MRI from [facility] it is apparent that there is infection in the first metatarsal left foot. There appears to be sinus tract extending from the incision to the bone with extensive bone edema. It is important to evaluate a new MRI with and without contrast to evaluate changes prior to any surgical planning also evaluate progress if he is responsive to intravenous antibiotic therapy. Given the severity of the prognosis of a first ray amputation exhaustive therapy with intravenous antibiotics should be performed. Considering taking a bone biopsy from his possible sinus tract following new MRI to evaluate possible antibiotic therapy with culture driven sensitivity. Assuming the infection can be eradicated and there is no residual bone infection debridement and closure of wound may be performed, this is fairly unlikely however. Decision for length of stay will be determined from a podiatric perspective following the return of the magnetic resonance imaging which should be performed shortly. In the meanwhile the foot will be dressed with dry gauze changed daily and as needed. September 21, 2016: after reviewing the magnetic resonance image of the left first metatarsal it appears that there is extensive osteomyelitis as is evident with bone marrow edema. this will likely prove to be recalcitrant to intravenous antibiosis. Pending radiographic radiologist assessment of the magnetic resonance image of the left foot for confirmation of suspected osteomyelitis based on initial interpretation. Patient may be a candidate for limited amputation of the left foot possibly first ray amputation (metatarsal and hallux ). September 22, 2016: After reviewing the radiologist report confirmation of osteomyelitis infection of the left first metatarsal and first metatarsal phalangeal joint left hallux. This becomes. Due to partial first ray and rotation taking the hallux and half of the distal half to two thirds of the left first metatarsal. This is to be done Sunday morning. In the meanwhile patient will continue antibiotic therapy. Due to the extensive infectious nature of this wound 6 weeks of antibiotic therapy will still be prudent following the amputation Sunday. Patient will follow up in clinic 3 days following the procedure he will need extensive shoe modification wound. Treatment to ensure that there is no further dehiscence of this wound. extensive discussion performed patient regarding the pros and cons of performing such an amputation. He understands the ramifications and alteration to his lifestyle. He knows that he will have to wear custom shoe gear at all times following the procedure and there will be an extensive 2-3 months of recovery course prior to being a stable position to perform outdoor activities on a regular basis. Qualifiers: Encounter type: subsequent encounter Qualified Code(s): T81.31XD - Disruption of external operation (surgical) wound, not elsewhere classified, subsequent encounter (2) Cellulitis Status: Acute (3) Osteomyelitis Status: Acute Qualifiers: Osteomyelitis type: other chronic Osteomyelitis location: foot Laterality : right Qualified Code(s): M86.671 - Other chronic osteomyelitis, right ankle and foot (4) Cellulitis of left foot Status: Acute (5) Osteomyelitis of ankle or foot Status: Acute
--- NOTE | 2016-09-22 13:12 | Internal Med Progress Note ---
Medical - PN: Subj Patient information: Note initiated : 09/22/16 at 1:10 pm Service Date, if different from initiated Date: [] Patient: Rock Narayan 56 y/o M admitted on 09/17/16 for Recheck of left foot wound. Chief Complaint: [] Interval history: September 17, 2016: History of present illness: Mr. Narayan is a 56 year old man with a history of osteomyelitis of his left foot. He apparently has had difficulty keeping appointments, and has generally been noncompliant with care. He had a surgical procedure with Dr. Jc Nolan, which subsequently became infected. He then had a revision with Dr. Morales, and that wound dehisced. He has followed up for wound care at both [facility] and [facility], and was lost to follow-up. He reports that he has been on antibiotics both oral and IV, intermittently for about 60 days now. He tells me that he developed a left foot infection in November 2015. I believe he was treated as an inpatient at [facility], and underwent a surgical procedure with Dr. Nolan. He says the infection then came back and then he followed up with Dr. Moraels, and had another surgery. He says he was then treated for approximately 60 days with IV antibiotics from January to March , and that he did not miss an appointment. At some point he was also followed at our wound care clinic, and says he was discharged from there, even though the wound was still a little bit open. He was told it would close up on its own eventually, but he says it did not. He got very frustrated with the hand roller engraver, so he decided to stop seeing them. He has been in and out of the emergency room whenever the foot flares up and starts to drain again. He has been treated with various oral antibiotics, including ciprofloxacin and Bactrim. He believes he had an MRI over at [facility] about 6 weeks ago, that showed ongoing osteomyelitis. His sister was diagnosed with lung cancer not long ago, and he decided to forget about his foot while he tried to help her through her cancer. He has been experiencing fever and chills the last few days, and feeling dizzy. He notes he has had intermittent nausea, vomiting, and diarrhea. The diarrhea tends to wax and wane a bit. He also has a mild cough for the last few days, which is nonproductive. He was seen in our emergency room on September 13, and wound cultures were done. I believe he was referred to orthopedics, but did not make that appointment. He presented back to the emergency room today complaining of fever and chills, and extreme frustration with his inability to get his foot healed. He says his sister, who appears to be dying of her cancer, strongly encouraged him to get treatment for his foot, and this is what his family wants as well. He otherwise denies headaches, new eye or ear symptoms, sore throat, chest pain or palpitations, shortness of breath, abdominal pain, hematemesis or bright red blood per rectum, dysuria. He initially denied depression, but then admits he has been very frustrated and that he often cries himself to sleep because he is so frustrated with his health. He has been seeing Dr. Hadley, but apparently Dr. hadley is getting ready to retire. It has been suggested that he get a new primary care physician. Dr. Hadley has been treating him with Seroquel, but the patient's understanding was that this was to help him sleep, and not necessarily for depression or psychosis. He denies any previous diagnosis of depression or bipolar disorder. September 18: Today, the patient notes he is feeling a bit better, and a bit more optimistic about healing his foot. I saw him at the same time that Dr. Flynn saw him this morning. The patient has been noticing increasing foot pain, and does note that he had some sweats last night. Otherwise though he is having less chills, he denies chest pain or palpitations, shortness of breath, abdominal pain, nausea or vomiting or diarrhea or dysuria. Later today he did have a loose stool again, but C. difficile screen was negative. His and son were also in the room with him today, and he reports he is agreeable to trying antidepressants for his depression and anxiety symptoms. September 19: Today, the patient notes he is having increasing pain in his foot. It has been throbbing, and he is having a difficult time keeping it control. His family brought him in a knee brace from home, and he did put that on his left knee, and it appears it might be aggravating the swelling in his left foot. Dr. Sahu of podiatry has not been in to see him yet. Dr. marie he thinks that they will manage this just with IV antibiotics long-term. PICC line is to be placed today. The patient notes he seems to have abdominal cramping and diarrhea after every dose of IV Zosyn. He is wondering what to do about that. He is still feeling restless and anxious quite frequently. He is not sleeping well. Otherwise, he denies fever or chills, but often feels warm. He denies headaches or dizziness, chest pain or palpitations, shortness of breath, nausea or vomiting, dysuria 09/20: Still having 8-9/10 pain. He is only using short-acting pain meds. Would like to start some long-acting opiates. He is tolerating the imipenem with no GI side effects. I d/w Dr. Sahu re: plan. Will plan for at least 6 weeks of IV Abx. Prior cx unlikely to be helpful as the wound is so chronic; Dr. Sahu may do bone bx if he decides to take pt to debridement. he will review MRI from [facility] first . 09/21: patient seen and examined. No acute overnight events, been reasonably controlled at this point in time. He is on sustained release morphine and when necessary oxycodone the patient is scheduled to have an MRI this afternoon, this MRI was recommended for further plan of care. Dr. SAHU, the hand roller engraver and Dr. Peck the credit collection specialist following the patient. The patient notes that he has diarrhea His C. difficile has been tested and is negative. Labs are unremarkable. He is afebrile and in apparently stable. He is presently on broad-spectrum antibiotics. Wound culture is growing gram-negative activity However, at this point in time, he will need an accurate bone culture to determine the right antibacterial agent. 09/22 patient seen and examined. No acute overnight events, MRI done yesterday is reviewed with the patient by podiatry. Plan to have amputation done on Sunday. Patient will likely need 6 weeks of IV antibiotics after surgery. The patient pain is much better controlled at this point in time. The patient also reports improvement in diarrhea. Pertinent ROS: Denies headache, dizziness Denies chest pain, palpitations Denies cough or shortness of breath Denies abdominal pain, nausea or vomiting. - Constitutional Vitals: Vital Signs Temp Pulse Resp BP Pulse Ox 98.1 F 62 20 134/63 95 09/22/16 11:02 09/22/16 04:00 09/22/16 11:02 09/22/16 11:02 09/22/16 11:02 Period Temp Pulse Resp BP Sys/Torrez Pulse Ox Last 24 Hr 97.3 F-98.1 F 61-76 16-20 134-151/63-96 92-96 Intake and Output 09/21/16 09/22/16 09/22/16 21:59 05:59 13:59 Intake Total 1300 / 1300 1850 / 1850 610 / 610 Balance 1300 / 1300 1850 / 1850 610 / 610 Weight 255 lb 255 lb Patient Weight 09/23/16 05:59 Weight 255 lb Intake & Output: Intake & Output 09/21/16 09/22/16 09/22/16 21:59 05:59 13:59 Intake Total 1300 / 1300 1850 / 1850 610 / 610 Balance 1300 / 1300 1850 / 1850 610 / 610 Weight 255 lb 255 lb Intake: IV 500 / 500 250 / 250 250 / 250 Primaxin 1,000 mg In 250 / 250 250 / 250 250 / 250 Sodium Chloride 0.9% 250 ml @ 250 mls/hr IV Q8H [facility] Rx#:[id number] Vancomycin 1,000 mg In 250 / 250 Sodium Chloride 0.9% 250 ml @ 250 mls/hr IV Q12H [facility] Rx#:[id number] Oral 800 / 800 1600 / 1600 360 / 360 Other: Meal Snack Percent of Meal Consumed 100% 100% Feeding Ability Independent # Voids 2 2 Exam: Constitutional; Afebrile, cooperative, alert, not in distress. Eyes- No icterus, , No periorbital swelling Ears- Ext ear normal, hearing normal to conversation. Neck- Midline trachea, supple Respiratory system: Air Entry equal on both sides, No crackles or wheezing, no rhonchi. CVS- Rate rhythm regular, S1,S2 heard, no gallop, no rub. Abdomen- Soft nontender abdomen, no organomegaly, no tenderness, no guarding or rigidity, GLASS ETCHER- AOOx3, moving all extremities, no gross focal deficit noted. Medical - PN: Obj Da - Labs CBC & Chem 7: 09/22/16 06:00 09/22/16 06:00 Labs: Abnormal Lab Results 09/22/16 09/22/16 09/21/16 06:00 06:00 04:55 RBC 4.17 L Hgb 13.3 L Hct 38.5 L Gran % ESR 16 H Calcium 8.4 L Triglycerides 185 H Vancomycin Trough 09/21/16 09/20/16 09/20/16 04:55 08:06 04:00 RBC 4.05 L Hgb 13.2 L Hct 37.6 L Gran % ESR 16 H Calcium 8.3 L Triglycerides Vancomycin Trough 21.3 H* 09/20/16 04:00 RBC 4.10 L Hgb 13.4 L Hct 38.4 L Gran % 37.1 L ESR 17 H Calcium Triglycerides Vancomycin Trough Meds: Medications Acetaminophen (Tylenol) 650 mg PO Q6HP PRN PRN Reason: PAIN/FEVER > 101 Last Admin: 09/18/16 03:45 Dose: 650 mg Buspirone HCl (Buspar) 5 mg PO BID [facility] Last Admin: 09/22/16 07:47 Dose: 5 mg Docusate Sodium (Colace) 100 mg PO BID PRN PRN Reason: Constipation Enoxaparin Sodium (Lovenox) 40 mg SQ DAILY [facility] Last Admin: 09/22/16 07:46 Dose: 40 mg Heparin Sodium (Porcine) (Heparin Flush) 2 ml IV Q12 [facility] Hydromorphone HCl (Dilaudid) 0.5 mg IV Q2HP PRN PRN Reason: Pain Last Admin: 09/22/16 11:03 Dose: 0.5 mg Imipenem/Cilastatin Sodium 1, (000 mg/ Sodium Chloride) 250 mls @ 250 mls/hr IV Q8H [facility] Last Infusion: 09/22/16 07:23 Dose: Infused Vancomycin HCl 1,000 mg/ (Sodium Chloride) 250 mls @ 250 mls/hr IV Q12H [facility] Last Admin: 09/22/16 10:44 Dose: 250 mls/hr Ibuprofen (Motrin) 600 mg PO TID [facility] Last Admin: 09/22/16 07:47 Dose: 600 mg Iron Carb/Multivit/[place]/Folic Acid (Multivitamin W/Minerals) 1 tab PO DAILY [facility] Last Admin: 09/22/16 07:47 Dose: 1 tab Lactobacillus Rhamnosus (Culturelle) 1 cap PO BID [facility] Last Admin: 08/04/17 07:47 Dose: 1 cap Loperamide HCl (Imodium) 2 mg PO PRN PRN PRN Reason: Diarrhea Last Admin: 09/20/16 17:51 Dose: 2 mg Lorazepam (Ativan) 0.5 mg PO Q8HP PRN PRN Reason: ANXIETY/SEDATION Last Admin: 09/19/16 09:03 Dose: 0.5 mg Magnesium Hydroxide (Milk Of Magnesia) 30 ml PO DAILYP PRN PRN Reason: Constipation Morphine Sulfate (Ms Contin) 15 mg PO BID [facility] Last Admin: 09/22/16 07:47 Dose: 15 mg Naloxone HCl (Narcan) 0.1 mg IV Q2MIN PRN PRN Reason: Opiate Reversal Nicotine (Nicoderm) 7 mg TOPICAL DAILY@1000 [facility] Last Admin: 09/22/16 10:30 Dose: Not Given Ondansetron HCl (Zofran Odt) 4 mg SL Q6HP PRN PRN Reason: Nausea And Vomiting Last Admin: 09/21/16 08:28 Dose: 4 mg Oxycodone/Acetaminophen (Percocet 5-325 Mg) 1 - 2 tab PO Q4-6HP PRN PRN Reason: Pain Last Admin: 09/22/16 11:03 Dose: 2 tab Quetiapine Fumarate (Seroquel) 75 mg PO [facility] Last Admin: 09/22/16 01:40 Dose: Not Given Sertraline HCl (Zoloft) 50 mg PO DAILY [facility] Last Admin: 09/22/16 10:44 Dose: 50 mg Sodium Chloride (Saline Flush) 10 ml IV Q8 [facility] Last Admin: 09/22/16 07:23 Dose: 10 ml Sodium Chloride (Saline Flush) 10 ml IV UD PRN PRN Reason: FLUSH Trazodone HCl (Desyrel) 50 mg PO [facility] Last Admin: 09/21/16 20:48 Dose: 50 mg Vancomycin HCl (Vancomycin Per Pharmacy) 1 order IV UD [facility] Medical - PN: A/P - Time Spent With Patient Total time spent is greater than 50% in coordination of care (as documented) at patient's floor/unit and/or counseling patient: - Narrative A/P Narrative: A/P Left Foot ostemyelitis Acute vs Acute on Chr MRI shows OM, plan for sx next week. will need atleast 6 weeks of IVabx, can be titrated based on bone culture. PICC in place On Vanco 09/17 Imipenum 09/19, was on zosyn priolr to thyat (stopped due to gi upset) Foot pain on ms contin, oxycodone, ibuprofen, much better, continue same. Depression On seroquel buspar and zoloft continue same. chr diarrhea: start on probioitics , cdiff is neg. clnically improving, prn imodium. Obesity DVT hep sq Diet regular Full code Disp: Pt will need new pcp at discharge Medical - PN: Qual - Stroke Symptom Onset Unknown: No - VTE Deep Vein Thrombosis/Pulmonary Embolism Present on Admission: No
[2016-09-22] MEDS: traZODone HCL 50 MG TABLET PO SCH (21:46)
[2016-09-23] MEDS: oxyCODONE/APAP 5/325MG TABLET PO PRN ×6 (00:55→20:35)
[2016-09-23] MEDS: HYDROmorphone 2 MG/ML SYRINGE IV PRN ×6 (00:56→20:35)
[2016-09-23] MEDS: QUEtiapine 25 MG TABLET PO SCH (02:31)
[2016-09-23] MEDS: IMIPENEM/CILASTATIN SODIUM 1,000 MG in 0.9 % SODIUM CHLORIDE 250 ML IV SCH ×3 (06:12→21:30)
[2016-09-23] MEDS: 0.9 % SODIUM CHLORIDE 10 ML SYRINGE IV SCH ×2 (06:13→15:05)
[2016-09-23] MEDS: LORazepam 0.5 MG TABLET PO PRN (07:38)
--- NOTE | 2016-09-23 08:14 | Orthopedic Progress Note ---
Subjective Patient information: Note initiated : 09/23/16 at 8:11 am Service Date, if different from initiated Date: [] Patient: Rock Narayan 56 y/o M admitted on 09/17/16 for Recheck of left foot wound. Chief Complaint: [left foot wound] Principal diagnosis: osteomyelitis left foot Interval history: no f,c,n,v,sob Pertinent ROS: less pain to left foot, some throbbing is present Objective Vital signs: Vital Signs Temp Pulse Resp BP BP BP Pulse Ox 09/23/16 06:53 97.1 F 20 180/73 97 09/23/16 04:00 97.1 F 51 L 18 145/78 96 09/23/16 00:00 97.4 F 61 18 163/69 96 09/22/16 20:00 98.2 F 74 22 194/76 100 09/22/16 15:46 98.9 F 20 139/81 96 09/22/16 11:02 98.1 F 20 134/63 95 Intake and Output 09/22/16 09/23/16 09/23/16 21:59 05:59 13:59 Intake Total 1650 / 1650 1900 / 1900 240 / 240 Balance 1650 / 1650 1900 / 1900 240 / 240 Intake: IV 250 / 250 500 / 500 Primaxin 1,000 mg In 250 / 250 250 / 250 Sodium Chloride 0.9% 250 ml @ 250 mls/hr IV Q8H [facility] Rx#:[id number] Vancomycin 1,000 mg In 250 / 250 Sodium Chloride 0.9% 250 ml @ 250 mls/hr IV Q12H [facility] Rx#:[id number] Oral 1400 / 1400 1400 / 1400 240 / 240 Other: Meal Dinner Percent of Meal Consumed 100% Feeding Ability Independent # Voids 3 3 Weight 256 lb 8 oz Intake & Output: Intake & Output 09/22/16 09/23/16 09/23/16 21:59 05:59 13:59 Intake Total 1650 / 1650 1900 / 1900 240 / 240 Balance 1650 / 1650 1900 / 1900 240 / 240 Weight 256 lb 8 oz Intake: IV 250 / 250 500 / 500 Primaxin 1,000 mg In 250 / 250 250 / 250 Sodium Chloride 0.9% 250 ml @ 250 mls/hr IV Q8H [facility] Rx#:[id number] Vancomycin 1,000 mg In 250 / 250 Sodium Chloride 0.9% 250 ml @ 250 mls/hr IV Q[facility] Rx#:[id number] Oral 1400 / 1400 1400 / 1400 240 / 240 Other: Meal Dinner Percent of Meal Consumed 100% Feeding Ability Independent # Voids 3 3 Incision: Yes red, Yes swollen, Yes inflamed Incision clean and dry: No Dressing: Yes intact Weight bearing status: non (to left NWB) Neurological exam IM: Yes altered, Yes motor sensory deficit Extremities exam IM: Yes joint swelling, Yes pedal edema, Yes tenderness - Periperhal Pulses Peripheral pulses: 1+: dorsalis pedis (L), dorsalis pedis (R), posterior tibialis (L), posterior tibialis (R) - Labs CBC & BMP: 09/22/16 06:00 09/22/16 06:00 Labs: 09/22/16 09/21/16 09/20/16 06:00 04:55 04:00 Hgb 13.3 L 13.2 L 13.4 L Hct 38.5 L 37.6 L 38.4 L 09/19/16 09/18/16 05:15 04:35 Hgb 14.0 14.1 Hct 40.4 L 40.7 L Assessment and Plan (1) Wound dehiscence, surgical Status: Acute Priority: High Comment: 09-20-16: Would benefit from long-term IV antibiotics possible amputation of the left first metatarsal. Will review MRI and x-rays and patient course for possible consideration of amputation/ identification of osteomyelitis beyond current diagnosis. Will continue to see patient on daily basis while admitted. 09-20-16: after reviewing the report and images of the MRI from [facility] it is apparent that there is infection in the first metatarsal left foot. There appears to be sinus tract extending from the incision to the bone with extensive bone edema. It is important to evaluate a new MRI with and without contrast to evaluate changes prior to any surgical planning also evaluate progress if he is responsive to intravenous antibiotic therapy. Given the severity of the prognosis of a first ray amputation exhaustive therapy with intravenous antibiotics should be performed. Considering taking a bone biopsy from his possible sinus tract following new MRI to evaluate possible antibiotic therapy with culture driven sensitivity. Assuming the infection can be eradicated and there is no residual bone infection debridement and closure of wound may be performed, this is fairly unlikely however. Decision for length of stay will be determined from a podiatric perspective following the return of the magnetic resonance imaging which should be performed shortly. In the meanwhile the foot will be dressed with dry gauze changed daily and as needed. September 21, 2016: after reviewing the magnetic resonance image of the left first metatarsal it appears that there is extensive osteomyelitis as is evident with bone marrow edema. this will likely prove to be recalcitrant to intravenous antibiosis. Pending radiographic radiologist assessment of the magnetic resonance image of the left foot for confirmation of suspected osteomyelitis based on initial interpretation. Patient may be a candidate for limited amputation of the left foot possibly first ray amputation (metatarsal and hallux ). September 22, 2016: After reviewing the radiologist report confirmation of osteomyelitis infection of the left first metatarsal and first metatarsal phalangeal joint left hallux. This becomes. Due to partial first ray and rotation taking the hallux and half of the distal half to two thirds of the left first metatarsal. This is to be done Sunday. In the meanwhile patient will continue antibiotic therapy. Due to the extensive infectious nature of this wound 6 weeks of antibiotic therapy will still be prudent following the amputation Sunday. Patient will follow up in clinic 3 days following the procedure he will need extensive shoe modification wound. Treatment to ensure that there is no further dehiscence of this wound. extensive discussion performed patient regarding the pros and cons of performing such an amputation. He understands the ramifications and alteration to his lifestyle. He knows that he will have to wear custom shoe gear at all times following the procedure and there will be an extensive 2-3 months of recovery course prior to being a stable position to perform outdoor activities on a regular basis. 09/23/16: No major changes in past 24hrs. He has had extensive talks with his and family regarding the procedure. There have not been new concerns since yesterday's discussion. The procedure is still planned for Sunday about about 8AM. Qualifiers: Encounter type: subsequent encounter Qualified Code(s): T81.31XD - Disruption of external operation (surgical) wound, not elsewhere classified, subsequent encounter (2) Cellulitis Status: Acute (3) Osteomyelitis Status: Acute Qualifiers: Osteomyelitis type: other chronic Osteomyelitis location: foot Laterality : right Qualified Code(s): M86.671 - Other chronic osteomyelitis, right ankle and foot (4) Cellulitis of left foot Status: Acute (5) Osteomyelitis of ankle or foot Status: Acute
[2016-09-23] MEDS: VANCOMYCIN 1,000 MG in 0.9 % SODIUM CHLORIDE 250 ML IV SCH ×2 (08:59→20:35)
[2016-09-23] MEDS: ENOXAPARIN 40 MG/0.4 ML SYRINGE SQ SCH (09:01)
[2016-09-23] MEDS: SERTRALINE 50 MG TABLET PO SCH (09:01)
[2016-09-23] MEDS: NICOTINE 7 MG PATCH TOPICAL SCH (09:01)
[2016-09-23] MEDS: MULTIVIT,THER IRON,CA,FA & MIN 1 TABLET PO SCH (09:01)
[2016-09-23] MEDS: busPIRone 5 MG TABLET PO SCH ×2 (09:01→20:34)
[2016-09-23] MEDS: IBUPROFEN 600 MG TABLET PO SCH ×3 (09:01→20:34)
[2016-09-23] MEDS: morphine 15 MG TAB.SR.12H PO SCH ×2 (09:01→20:34)
--- NOTE | 2016-09-23 11:22 | Internal Med Progress Note ---
Medical - PN: Subj Patient information: Note initiated : 09/23/16 at 11:20 am Service Date, if different from initiated Date: [] Patient: Rock Narayan 56 y/o M admitted on 09/17/16 for Recheck of left foot wound. Chief Complaint: [] Interval history: September 17, 2016: History of present illness: Mr. Narayan is a 56 year old man with a history of osteomyelitis of his left foot. He apparently has had difficulty keeping appointments, and has generally been noncompliant with care. He had a surgical procedure with Dr. Jc Nolan, which subsequently became infected. He then had a revision with Dr. Morales, and that wound dehisced. He has followed up for wound care at both [facility] and [facility], and was lost to follow-up. He reports that he has been on antibiotics both oral and IV, intermittently for about 60 days now. He tells me that he developed a left foot infection in November 2015. I believe he was treated as an inpatient at [facility], and underwent a surgical procedure with Dr. Nolan. He says the infection then came back and then he followed up with Dr. Morales, and had another surgery. He says he was then treated for approximately 60 days with IV antibiotics from January to March , and that he did not miss an appointment. At some point he was also followed at our wound care clinic, and says he was discharged from there, even though the wound was still a little bit open. He was told it would close up on its own eventually, but he says it did not. He got very frustrated with the well flow operator, so he decided to stop seeing them. He has been in and out of the emergency room whenever the foot flares up and starts to drain again. He has been treated with various oral antibiotics, including ciprofloxacin and Bactrim. He believes he had an MRI over at [facility] about 6 weeks ago, that showed ongoing osteomyelitis. His sister was diagnosed with lung cancer not long ago, and he decided to forget about his foot while he tried to help her through her cancer. He has been experiencing fever and chills the last few days, and feeling dizzy. He notes he has had intermittent nausea, vomiting, and diarrhea. The diarrhea tends to wax and wane a bit. He also has a mild cough for the last few days, which is nonproductive. He was seen in our emergency room on September 13, and wound cultures were done. I believe he was referred to orthopedics, but did not make that appointment. He presented back to the emergency room today complaining of fever and chills, and extreme frustration with his inability to get his foot healed. He says his sister, who appears to be dying of her cancer, strongly encouraged him to get treatment for his foot, and this is what his family wants as well. He otherwise denies headaches, new eye or ear symptoms, sore throat, chest pain or palpitations, shortness of breath, abdominal pain, hematemesis or bright red blood per rectum, dysuria. He initially denied depression, but then admits he has been very frustrated and that he often cries himself to sleep because he is so frustrated with his health. He has been seeing Dr. Hadley, but apparently Dr. hadley is getting ready to retire. It has been suggested that he get a new primary care physician. Dr. Hadley has been treating him with Seroquel, but the patient's understanding was that this was to help him sleep, and not necessarily for depression or psychosis. He denies any previous diagnosis of depression or bipolar disorder. September 18: Today, the patient notes he is feeling a bit better, and a bit more optimistic about healing his foot. I saw him at the same time that Dr. Flynn saw him this morning. The patient has been noticing increasing foot pain, and does note that he had some sweats last night. Otherwise though he is having less chills, he denies chest pain or palpitations, shortness of breath, abdominal pain, nausea or vomiting or diarrhea or dysuria. Later today he did have a loose stool again, but C. difficile screen was negative. His and son were also in the room with him today, and he reports he is agreeable to trying antidepressants for his depression and anxiety symptoms. September 19: Today, the patient notes he is having increasing pain in his foot. It has been throbbing, and he is having a difficult time keeping it control. His family brought him in a knee brace from home, and he did put that on his left knee, and it appears it might be aggravating the swelling in his left foot. Dr. Sahu of podiatry has not been in to see him yet. Dr. marie he thinks that they will manage this just with IV antibiotics long-term. PICC line is to be placed today. The patient notes he seems to have abdominal cramping and diarrhea after every dose of IV Zosyn. He is wondering what to do about that. He is still feeling restless and anxious quite frequently. He is not sleeping well. Otherwise, he denies fever or chills, but often feels warm. He denies headaches or dizziness, chest pain or palpitations, shortness of breath, nausea or vomiting, dysuria 09/20: Still having 8-9/10 pain. He is only using short-acting pain meds. Would like to start some long-acting opiates. He is tolerating the imipenem with no GI side effects. I d/w Dr. Sahu re: plan. Will plan for at least 6 weeks of IV Abx. Prior cx unlikely to be helpful as the wound is so chronic; Dr. Sahu may do bone bx if he decides to take pt to debridement. he will review MRI from [facility] first . 09/21: patient seen and examined. No acute overnight events, been reasonably controlled at this point in time. He is on sustained release morphine and when necessary oxycodone the patient is scheduled to have an MRI this afternoon, this MRI was recommended for further plan of care. Dr. SAHU, the well flow operator and Dr. Peck the origination specialist following the patient. The patient notes that he has diarrhea His C. difficile has been tested and is negative. Labs are unremarkable. He is afebrile and in apparently stable. He is presently on broad-spectrum antibiotics. Wound culture is growing gram-negative activity However, at this point in time, he will need an accurate bone culture to determine the right antibacterial agent. 09/22 patient seen and examined. No acute overnight events, MRI done yesterday is reviewed with the patient by podiatry. Plan to have amputation done on Sunday. Patient will likely need 6 weeks of IV antibiotics after surgery. The patient pain is much better controlled at this point in time. The patient also reports improvement in diarrhea. 09/23: Pt seen examined, no acute overnight issues, he did struggle with pain control ovenright, WIll increase the dose of dilaudid from 0.5mg to 1mg q2 hrs, continue long acting morphine. patient has no other concerns. Plan for surgery sunday. Will needl jose term antibiotics after same. Pertinent ROS: Denies headache, dizziness Denies chest pain, palpitations Denies cough or shortness of breath Denies abdominal pain, nausea or vomiting. - Constitutional Vitals: Vital Signs Temp Pulse Resp BP Pulse Ox 97.1 F 51 L 20 180/73 97 09/23/16 06:53 09/23/16 04:00 09/23/16 06:53 09/23/16 06:53 09/23/16 06:53 Period Temp Pulse Resp BP Sys/Torrez Pulse Ox Last 24 Hr 97.1 F-98.9 F 51-74 18-22 139-194/69-81 96-100 Intake and Output 09/22/16 09/23/16 09/23/16 21:59 05:59 13:59 Intake Total 1650 / 1650 1900 / 1900 580 / 580 Balance 1650 / 1650 1900 / 1900 580 / 580 Weight 256 lb 8 oz Intake & Output: Intake & Output 09/22/16 09/23/16 09/23/16 21:59 05:59 13:59 Intake Total 1650 / 1650 1900 / 1900 580 / 580 Balance 1650 / 1650 1900 / 1900 580 / 580 Weight 256 lb 8 oz Intake: IV 250 / 250 500 / 500 Primaxin 1,000 mg In 250 / 250 250 / 250 Sodium Chloride 0.9% 250 ml @ 250 mls/hr IV Q8H [facility] Rx#:[id number] Vancomycin 1,000 mg In 250 / 250 Sodium Chloride 0.9% 250 ml @ 250 mls/hr IV Q12H [facility] Rx#:[id number] Oral 1400 / 1400 1400 / 1400 580 / 580 Other: Meal Dinner Breakfast Percent of Meal Consumed 100% 100% Feeding Ability Independent Independent # Voids 3 3 Exam: Constitutional; Afebrile, cooperative, alert, not in distress. Eyes- No icterus, , No periorbital swelling Ears- Ext ear normal, hearing normal to conversation. Neck- Midline trachea, supple Respiratory system: Air Entry equal on both sides, No crackles or wheezing, no rhonchi. CVS- Rate rhythm regular, S1,S2 heard, no gallop, no rub. Abdomen- Soft nontender abdomen, no organomegaly, no tenderness, no guarding or rigidity, [employer]- AOOx3, moving all extremities, no gross focal deficit noted. Medical - PN: Obj Da - Labs CBC & Chem 7: 09/22/16 06:00 09/22/16 06:00 Labs: Abnormal Lab Results 09/22/16 09/22/16 09/21/16 06:00 06:00 04:55 RBC 4.17 L Hgb 13.3 L Hct 38.5 L ESR 16 H Calcium 8.4 L Triglycerides 185 H 09/21/16 04:55 RBC 4.05 L Hgb 13.2 L Hct 37.6 L ESR 16 H Calcium Triglycerides Meds: Medications Acetaminophen (Tylenol) 650 mg PO Q6HP PRN PRN Reason: PAIN/FEVER > 101 Last Admin: 09/18/16 03:45 Dose: 650 mg Buspirone HCl (Buspar) 5 mg PO BID [facility] Last Admin: 09/23/16 09:01 Dose: 5 mg Docusate Sodium (Colace) 100 mg PO BID PRN PRN Reason: Constipation Enoxaparin Sodium (Lovenox) 40 mg SQ DAILY [facility] Last Admin: 09/23/16 09:01 Dose: 40 mg Heparin Sodium (Porcine) (Heparin Flush) 2 ml IV Q12 [facility] Last Admin: 09/23/16 09:00 Dose: 2 ml Hydromorphone HCl (Dilaudid) 1 mg IV Q2HP PRN PRN Reason: Pain Imipenem/Cilastatin Sodium 1, (000 mg/ Sodium Chloride) 250 mls @ 250 mls/hr IV Q8H [facility] Last Admin: 09/23/16 06:12 Dose: 250 mls/hr Vancomycin HCl 1,000 mg/ (Sodium Chloride) 250 mls @ 250 mls/hr IV Q12H [facility] Last Admin: 09/23/16 08:59 Dose: 250 mls/hr Ibuprofen (Motrin) 600 mg PO TID [facility] Last Admin: 09/23/16 09:01 Dose: 600 mg Iron Carb/Multivit/[place]/Folic Acid (Multivitamin W/Minerals) 1 tab PO DAILY [facility] Last Admin: 09/23/16 09:01 Dose: 1 tab Lactobacillus Rhamnosus (Culturelle) 1 cap PO BID [facility] Last Admin: 09/22/16 21:46 Dose: 1 cap Loperamide HCl (Imodium) 2 mg PO PRN PRN PRN Reason: Diarrhea Last Admin: 09/20/16 17:51 Dose: 2 mg Lorazepam (Ativan) 0.5 mg PO Q8HP PRN PRN Reason: ANXIETY/SEDATION Last Admin: 09/23/16 07:38 Dose: 0.5 mg Magnesium Hydroxide (Milk Of Magnesia) 30 ml PO DAILYP PRN PRN Reason: Constipation Morphine Sulfate (Ms Contin) 15 mg PO BID [facility] Last Admin: 09/23/16 09:01 Dose: 15 mg Naloxone HCl (Narcan) 0.1 mg IV Q2MIN PRN PRN Reason: Opiate Reversal Nicotine (Nicoderm) 7 mg TOPICAL DAILY@1000 [facility] Last Admin: 09/23/16 09:01 Dose: Not Given Ondansetron HCl (Zofran Odt) 4 mg SL Q6HP PRN PRN Reason: Nausea And Vomiting Last Admin: 09/21/16 08:28 Dose: 4 mg Oxycodone/Acetaminophen (Percocet 5-325 Mg) 1 - 2 tab PO Q4-6HP PRN PRN Reason: Pain Last Admin: 09/23/16 09:02 Dose: 2 tab Quetiapine Fumarate (Seroquel) 75 mg PO [facility] Last Admin: 09/23/16 02:31 Dose: Not Given Sertraline HCl (Zoloft) 50 mg PO DAILY [facility] Last Admin: 09/23/16 09:01 Dose: 50 mg Sodium Chloride (Saline Flush) 10 ml IV Q8 [facility] Last Admin: 09/23/16 06:13 Dose: 10 ml Sodium Chloride (Saline Flush) 10 ml IV UD PRN PRN Reason: FLUSH Trazodone HCl (Desyrel) 50 mg PO [facility] Last Admin: 09/22/16 21:46 Dose: 50 mg Vancomycin HCl (Vancomycin Per Pharmacy) 1 order IV [facility] Medical - PN: A/P - Time Spent With Patient Total time spent is greater than 50% in coordination of care (as documented) at patient's floor/unit and/or counseling patient: - Narrative A/P Narrative: A/P Left Foot osteomyelitis Acute vs Acute on Chr MRI shows OM, plan for sx next week. will need atleast 6 weeks of IVabx, can be titrated based on bone culture. PICC in place On Vanco 09/17 Imipenum 09/19, was on zosyn priolr to thyat (stopped due to gi upset) Foot pain on ms Contin, oxycodone, ibuprofen,and Dilaudid, increase dose of Dilaudid for now, monitor. if needed will increase the dose of MScontin. Depression On seroquel buspar and zoloft continue same. chr diarrhea: start on probioitics , cdiff is neg. clnically improving, prn imodium. Obesity DVT hep sq Diet regular Full code Disp: Pt will need new pcp at discharge Medical - PN: Qual - Stroke Symptom Onset Unknown: No - VTE Deep Vein Thrombosis/Pulmonary Embolism Present on Admission: No
[2016-09-23] MEDS: LACTOBACILLUS 1 CAPSULE PO SCH ×2 (11:51→20:34)
[2016-09-23] MEDS ORDERED: ALTEPLASE 2 MG VIAL IV ONE ×2 (16:20)
[2016-09-23] MEDS: traZODone HCL 50 MG TABLET PO SCH (20:34)
[2016-09-24] MEDS: HYDROmorphone 2 MG/ML SYRINGE IV PRN ×7 (00:48→22:42)
[2016-09-24] MEDS: oxyCODONE/APAP 5/325MG TABLET PO PRN ×6 (00:49→21:11)
[2016-09-24] MEDS: QUEtiapine 25 MG TABLET PO SCH ×2 (00:50→22:13)
[2016-09-24] MEDS: 0.9 % SODIUM CHLORIDE 10 ML SYRINGE IV SCH ×5 (00:52→21:15)
[2016-09-24] MEDS: LORazepam 0.5 MG TABLET PO PRN ×3 (00:56→20:02)
[2016-09-24] MEDS: IMIPENEM/CILASTATIN SODIUM 1,000 MG in 0.9 % SODIUM CHLORIDE 250 ML IV SCH ×3 (05:41→22:35)
[2016-09-24 08:15] LABS: Appearance,Urine CLEAR; Bilirubin,Urine NEG (NEG); Color,Urine STRAW; Glucose,Urine (UA) 50 mg/dL (NEG); Leukocyte Esterase,Urine NEG /uL (NEG); Nitrate,Urine NEG (NEG); Protein,Urine NEG (NEG); Specific Gravity,Urine 1.004 (1.000-1.035); Urine Blood NEG mg/dL (<0.03); Urobilinogen,Urine NEG (NEG)
[2016-09-24] MEDS: ENOXAPARIN 40 MG/0.4 ML SYRINGE SQ SCH (08:53)
[2016-09-24] MEDS: morphine 15 MG TAB.SR.12H PO SCH ×2 (08:54→21:12)
[2016-09-24] MEDS: busPIRone 5 MG TABLET PO SCH ×2 (08:54→21:12)
[2016-09-24] MEDS: MULTIVIT,THER IRON,CA,FA & MIN 1 TABLET PO SCH (08:54)
[2016-09-24] MEDS: IBUPROFEN 600 MG TABLET PO SCH ×3 (08:54→21:12)
[2016-09-24] MEDS: LACTOBACILLUS 1 CAPSULE PO SCH ×2 (08:55→21:11)
[2016-09-24] MEDS: SERTRALINE 50 MG TABLET PO SCH (08:55)
[2016-09-24] MEDS: VANCOMYCIN 1,000 MG in 0.9 % SODIUM CHLORIDE 250 ML IV SCH ×2 (08:55→21:14)
[2016-09-24] MEDS ORDERED: ALTEPLASE 2 MG VIAL IV ONE (09:30)
[2016-09-24] MEDS: NICOTINE 7 MG PATCH TOPICAL SCH (09:42)
--- NOTE | 2016-09-24 12:08 | Internal Med Progress Note ---
Medical - PN: Subj Patient information: Note initiated : 09/24/16 at 12:06 pm Service Date, if different from initiated Date: [] Patient: Rock Narayan 56 y/o M admitted on 09/17/16 for Recheck of left foot wound. Chief Complaint: [] Interval history: September 17, 2016: History of present illness: Mr. Narayan is a 56 year old man with a history of osteomyelitis of his left foot. He apparently has had difficulty keeping appointments, and has generally been noncompliant with care. He had a surgical procedure with Dr. Jc Nolan, which subsequently became infected. He then had a revision with Dr. Morales, and that wound dehisced. [facility], and was lost to follow-up. He reports that he has been on antibiotics both oral and IV, intermittently for about 60 days now. He tells me that he developed a left foot infection in November 2015. I believe he was treated as an inpatient at [facility], and underwent a surgical procedure with Dr. Nolan. He says the infection then came back and then he followed up with Dr. Morales, and had another surgery. He says he was then treated for approximately 60 days with IV antibiotics from January to March , and that he did not miss an appointment. At some point he was also followed at our wound care clinic, and says he was discharged from there, even though the wound was still a little bit open. He was told it would close up on its own eventually, but he says it did not. 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 He has been in and out of the emergency room whenever the foot flares up and starts to drain again. He has been treated with various oral antibiotics, including ciprofloxacin and Bactrim. He believes he had an MRI over at [facility] about 6 weeks ago, that showed ongoing osteomyelitis. His sister was diagnosed with lung cancer not long ago, and he decided to forget about his foot while he tried to help her through her cancer. He has been experiencing fever and chills the last few days, and feeling dizzy. He notes he has had intermittent nausea, vomiting, and diarrhea. The diarrhea tends to wax and wane a bit. He also has a mild cough for the last few days, which is nonproductive. He was seen in our emergency room on September 13, and wound cultures were done. I believe he was referred to orthopedics, but did not make that appointment. He presented back to the emergency room today complaining of fever and chills, and extreme frustration with his inability to get his foot healed. He says his sister, who appears to be dying of her cancer, strongly encouraged him to get treatment for his foot, and this is what his family wants as well. He otherwise denies headaches, new eye or ear symptoms, sore throat, chest pain or palpitations, shortness of breath, abdominal pain, hematemesis or bright red blood per rectum, dysuria. He initially denied depression, but then admits he has been very frustrated and that he often cries himself to sleep because he is so frustrated with his health. He has been seeing Dr. Hadley, but apparently Dr. hadley is getting ready to retire. It has been suggested that he get a new primary care physician. Dr. Hadley has been treating him with Seroquel, but the patient's understanding was that this was to help him sleep, and not necessarily for depression or psychosis. He denies any previous diagnosis of depression or bipolar disorder. September 18: Today, the patient notes he is feeling a bit better, and a bit more optimistic about healing his foot. I saw him at the same time that Dr. Flynn saw him this morning. The patient has been noticing increasing foot pain, and does note that he had some sweats last night. Otherwise though he is having less chills, he denies chest pain or palpitations, shortness of breath, abdominal pain, nausea or vomiting or diarrhea or dysuria. Later today he did have a loose stool again, but C. difficile screen was negative. His and son were also in the room with him today, and he reports he is agreeable to trying antidepressants for his depression and anxiety symptoms. September 19: Today, the patient notes he is having increasing pain in his foot. It has been throbbing, and he is having a difficult time keeping it control. His family brought him in a knee brace from home, and he did put that on his left knee, and it appears it might be aggravating the swelling in his left foot. Dr. Sahu of podiatry has not been in to see him yet. Dr. marie he thinks that they will manage this just with IV antibiotics long-term. PICC line is to be placed today. The patient notes he seems to have abdominal cramping and diarrhea after every dose of IV Zosyn. He is wondering what to do about that. He is still feeling restless and anxious quite frequently. He is not sleeping well. Otherwise, he denies fever or chills, but often feels warm. He denies headaches or dizziness, chest pain or palpitations, shortness of breath, nausea or vomiting, dysuria 09/20: Still having 8-9/10 pain. He is only using short-acting pain meds. Would like to start some long-acting opiates. He is tolerating the imipenem with no GI side effects. I d/w Dr. Sahu re: plan. Will plan for at least 6 weeks of IV Abx. Prior cx unlikely to be helpful as the wound is so chronic; Dr. Sahu may do bone bx if he decides to take pt to debridement. he will review MRI from [facility] first . 09/21: patient seen and examined. No acute overnight events, been reasonably controlled at this point in time. He is on sustained release morphine and when necessary oxycodone the patient is scheduled to have an MRI this afternoon, this MRI was recommended for further plan of care. Dr. SAHU, the ballet professor and Dr. Peck the clinical product specialist following the patient. The patient notes that he has diarrhea His C. difficile has been tested and is negative. Labs are unremarkable. He is afebrile and in apparently stable. He is presently on broad-spectrum antibiotics. Wound culture is growing gram-negative activity However, at this point in time, he will need an accurate bone culture to determine the right antibacterial agent. 09/22 patient seen and examined. No acute overnight events, MRI done yesterday is reviewed with the patient by podiatry. Plan to have amputation done on Sunday. Patient will likely need 6 weeks of IV antibiotics after surgery. The patient pain is much better controlled at this point in time. The patient also reports improvement in diarrhea. 09/23: Pt seen examined, no acute overnight issues, he did struggle with pain control ovenright, WIll increase the dose of dilaudid from 0.5mg to 1mg q2 hrs, continue long acting morphine. patient has no other concerns. Plan for surgery sunday. Will needl jose term antibiotics after same. 09/24: Pt seen examined, no acute overnight issues, pain much better with increased dose of dilaudid, will have to adjust dosing post op. Plan for surgery in AM, otherwise no new issues. Pertinent ROS: Denies headache, dizziness Denies chest pain, palpitations Denies cough or shortness of breath Denies abdominal pain, nausea or vomiting. - Constitutional Vitals: Vital Signs Temp Pulse Resp BP Pulse Ox 97 F 54 L 16 142/77 95 09/24/16 11:05 09/24/16 04:00 09/24/16 11:05 09/24/16 11:05 09/24/16 11:05 Period Temp Pulse Resp BP Sys/Torrez Pulse Ox Last 24 Hr 96.4 F-98.5 F 54-79 14-20 142-174/35-84 94-97 Intake and Output 09/23/16 09/24/16 09/24/16 21:59 05:59 13:59 Intake Total 2350 / 2350 650 / 650 Output Total 575 / 575 Balance 2350 / 2350 75 / 75 Weight 256 lb Intake & Output: Intake & Output 09/23/16 09/24/16 09/24/16 21:59 05:59 13:59 Intake Total 2350 / 2350 650 / 650 Output Total 575 / 575 Balance 2350 / 2350 75 / 75 Weight 256 lb Intake: IV 500 / 500 250 / 250 Primaxin 1,000 mg In 250 / 250 250 / 250 Sodium Chloride 0.9% 250 ml @ 250 mls/hr IV Q8H [facility] Rx#:[id number] Vancomycin 1,000 mg In 250 / 250 Sodium Chloride 0.9% 250 ml @ 250 mls/hr IV Q12H [facility] Rx#:[id number] Oral 1850 / 1850 400 / 400 Output: Void Amount 575 / 575 Other: Meal Dinner Percent of Meal Consumed 100% Feeding Ability Independent # Voids 6 1 # Bowel Movements 1 Exam: Constitutional; Afebrile, cooperative, alert, not in distress. Eyes- No icterus, , No periorbital swelling Ears- Ext ear normal, hearing normal to conversation. Neck- Midline trachea, supple Respiratory system: Air Entry equal on both sides, No crackles or wheezing, no rhonchi. CVS- Rate rhythm regular, S1,S2 heard, no gallop, no rub. Abdomen- Soft nontender abdomen, no organomegaly, no tenderness, no guarding or rigidity, PROCESSING MGR- AOOx3, moving all extremities, no gross focal deficit noted. Medical - PN: Obj Da - Labs CBC & Chem 7: 09/22/16 06:00 09/22/16 06:00 Labs: Abnormal Lab Results 09/24/16 09/22/16 09/22/16 06:44 06:00 06:00 RBC 4.17 L Hgb 13.3 L Hct 38.5 L ESR 16 H Triglycerides 185 H Urine Glucose (UA) 50 A Meds: Medications Acetaminophen (Tylenol) 650 mg PO Q6HP PRN PRN Reason: PAIN/FEVER > 101 Last Admin: 09/18/16 03:45 Dose: 650 mg Buspirone HCl (Buspar) 5 mg PO BID [facility] Last Admin: 09/24/16 08:54 Dose: 5 mg Docusate Sodium (Colace) 100 mg PO BID PRN PRN Reason: Constipation Enoxaparin Sodium (Lovenox) 40 mg SQ DAILY [facility] Last Admin: 09/24/16 08:53 Dose: 40 mg Heparin Sodium (Porcine) (Heparin Flush) 2 ml IV Q12 [facility] Last Admin: 09/24/16 11:54 Dose: 2 ml Hydromorphone HCl (Dilaudid) 1 mg IV Q2HP PRN PRN Reason: Pain Last Admin: 09/24/16 08:57 Dose: 1 mg Imipenem/Cilastatin Sodium 1, (000 mg/ Sodium Chloride) 250 mls @ 250 mls/hr IV Q8H [facility] Last Admin: 09/24/16 05:41 Dose: 250 mls/hr Vancomycin HCl 1,000 mg/ (Sodium Chloride) 250 mls @ 250 mls/hr IV Q12H [facility] Last Admin: 09/24/16 08:55 Dose: 250 mls/hr Ibuprofen (Motrin) 600 mg PO TID [facility] Last Admin: 09/24/16 08:54 Dose: 600 mg Iron Carb/Multivit/Oil Recovery Operator/Folic Acid (Multivitamin W/Minerals) 1 tab PO DAILY [facility] Last Admin: 09/24/16 08:54 Dose: 1 tab Lactobacillus Rhamnosus (Culturelle) 1 cap PO BID [facility] Last Admin: 09/24/16 08:55 Dose: 1 cap Loperamide HCl (Imodium) 2 mg PO PRN PRN PRN Reason: Diarrhea Last Admin: 09/20/16 17:51 Dose: 2 mg Lorazepam (Ativan) 0.5 mg PO Q8HP PRN PRN Reason: ANXIETY/SEDATION Last Admin: 09/24/16 08:54 Dose: 0.5 mg Magnesium Hydroxide (Milk Of Magnesia) 30 ml PO DAILYP PRN PRN Reason: Constipation Morphine Sulfate (Ms Contin) 15 mg PO BID [facility] Last Admin: 09/24/16 08:54 Dose: 15 mg Naloxone HCl (Narcan) 0.1 mg IV Q2MIN PRN PRN Reason: Opiate Reversal Nicotine (Nicoderm) 7 mg TOPICAL DAILY@1000 [facility] Last Admin: 09/24/16 09:42 Dose: Not Given Ondansetron HCl (Zofran Odt) 4 mg SL Q6HP PRN PRN Reason: Nausea And Vomiting Last Admin: 09/21/16 08:28 Dose: 4 mg Oxycodone/Acetaminophen (Percocet 5-325 Mg) 1 - 2 tab PO Q4-6HP PRN PRN Reason: Pain Last Admin: 09/24/16 08:55 Dose: 2 tab Quetiapine Fumarate (Seroquel) 75 mg PO [facility] Last Admin: 09/24/16 00:50 Dose: Not Given Sertraline HCl (Zoloft) 50 mg PO DAILY [facility] Last Admin: 09/24/16 08:55 Dose: 50 mg Sodium Chloride (Saline Flush) 10 ml IV Q8 [facility] Last Admin: 09/24/16 05:42 Dose: 10 ml Sodium Chloride (Saline Flush) 10 ml IV UD PRN PRN Reason: FLUSH Trazodone HCl (Desyrel) 50 mg PO [facility] Last Admin: 09/23/16 20:34 Dose: 50 mg Vancomycin HCl (Vancomycin Per Pharmacy) 1 order IV [facility] [place] Medical - PN: A/P - Time Spent With Patient Total time spent is greater than 50% in coordination of care (as documented) at patient's floor/unit and/or counseling patient: - Narrative A/P Narrative: A/P Left Foot osteomyelitis Acute vs Acute on Chr MRI shows OM, plan for sx tomorrow will need atleast 6 weeks of IVabx, can be titrated based on bone culture. PICC in place On Vanco 09/17 Imipenum 09/19, was on zosyn priolr to thyat (stopped due to gi upset) Foot pain on ms Contin, oxycodone, ibuprofen,and Dilaudid, increase dose of Dilaudid to 1mg q2hrs prn for now, monitor. if needed will increase the dose of MScontin. Depression On seroquel buspar and zoloft continue same. chr diarrhea: start on probioitics , cdiff is neg. clnically improving, prn imodium. Obesity DVT hep sq Diet regular Full code Disp: Pt will need new pcp at discharge Medical - PN: Qual - Stroke Symptom Onset Unknown: No - VTE Deep Vein Thrombosis/Pulmonary Embolism Present on Admission: No
--- NOTE | 2016-09-24 13:22 | Orthopedic Progress Note ---
Subjective Patient information: Note initiated : 09/24/16 at 1:19 pm Service Date, if different from initiated Date: [] Patient: Rock Narayan 56 y/o M admitted on 09/17/16 for Recheck of left foot wound. Chief Complaint: [left foot bone infection] Principal diagnosis: osteomyelitis left foot Interval history: no f,c,n,v,sob Pertinent ROS: pain in left foot, better with the new increase of pain medication Objective Vital signs: Vital Signs Temp Pulse Resp BP Pulse Ox 09/24/16 11:05 97 F 16 142/77 95 09/24/16 07:44 97.2 F 20 150/82 96 09/24/16 04:00 97.5 F 54 L 14 161/72 97 09/23/16 23:27 97.5 F 60 14 162/83 95 09/23/16 20:00 98.5 F 79 14 174/84 94 09/23/16 15:10 96.4 F L 20 145/35 96 Intake and Output 09/23/16 09/24/16 09/24/16 21:59 05:59 13:59 Intake Total 2350 / 2350 650 / 650 Output Total 575 / 575 Balance 2350 / 2350 75 / 75 Intake: IV 500 / 500 250 / 250 Primaxin 1,000 mg In 250 / 250 250 / 250 Sodium Chloride 0.9% 250 ml @ 250 mls/hr IV Q8H [facility] Rx#:[id number] Vancomycin 1,000 mg In 250 / 250 Sodium Chloride 0.9% 250 ml @ 250 mls/hr IV Q12H [facility] Rx#:[id number] Oral 1850 / 1850 400 / 400 Output: Void Amount 575 / 575 Other: Meal Dinner Percent of Meal Consumed 100% Feeding Ability Independent # Voids 6 1 # Bowel Movements 1 Weight 256 lb Intake & Output: Intake & Output 09/23/16 09/24/16 09/24/16 21:59 05:59 13:59 Intake Total 2350 / 2350 650 / 650 Output Total 575 / 575 Balance 2350 / 2350 75 / 75 Weight 256 lb Intake: IV 500 / 500 250 / 250 Primaxin 1,000 mg In 250 / 250 250 / 250 Sodium Chloride 0.9% 250 ml @ 250 mls/hr IV Q8H [facility] Rx#:[id number] Vancomycin 1,000 mg In 250 / 250 Sodium Chloride 0.9% 250 ml @ 250 mls/hr IV Q12H [facility] Rx#:[id number] Oral 1850 / 1850 400 / 400 Output: Void Amount 575 / 575 Other: Meal Dinner Percent of Meal Consumed 100% Feeding Ability Independent # Voids 6 1 # Bowel Movements 1 Incision: Yes red, Yes inflamed Incision clean and dry: No Dressing: Yes intact Weight bearing status: non Neurological exam IM: Yes motor sensory deficit, Yes motor sensory intact Extremities exam IM: Yes joint swelling, Yes pedal edema, Yes tenderness - Periperhal Pulses Peripheral pulses: 1+: dorsalis pedis (L), posterior tibialis (L), 2+: dorsalis pedis (R), posterior tibialis (R) - Labs CBC & BMP: 09/22/16 06:00 09/22/16 06:00 Labs: 09/22/16 09/21/16 09/20/16 06:00 04:55 04:00 Hgb 13.3 L 13.2 L 13.4 L Hct 38.5 L 37.6 L 38.4 L 09/19/16 09/18/16 05:15 04:35 Hgb 14.0 14.1 Hct 40.4 L 40.7 L Assessment and Plan (1) Wound dehiscence, surgical Status: Acute Priority: High Comment: 09-20-16: Would benefit from long-term IV antibiotics possible amputation of the left first metatarsal. Will review MRI and x-rays and patient course for possible consideration of amputation/ identification of osteomyelitis beyond current diagnosis. Will continue to see patient on daily basis while admitted. 09-20-16: after reviewing the report and images of the MRI from [facility] it is apparent that there is infection in the first metatarsal left foot. There appears to be sinus tract extending from the incision to the bone with extensive bone edema. It is important to evaluate a new MRI with and without contrast to evaluate changes prior to any surgical planning also evaluate progress if he is responsive to intravenous antibiotic therapy. Given the severity of the prognosis of a first ray amputation exhaustive therapy with intravenous antibiotics should be performed. Considering taking a bone biopsy from his possible sinus tract following new MRI to evaluate possible antibiotic therapy with culture driven sensitivity. Assuming the infection can be eradicated and there is no residual bone infection debridement and closure of wound may be performed, this is fairly unlikely however. Decision for length of stay will be determined from a podiatric perspective following the return of the magnetic resonance imaging which should be performed shortly. In the meanwhile the foot will be dressed with dry gauze changed daily and as needed. September 21, 2016: after reviewing the magnetic resonance image of the left first metatarsal it appears that there is extensive osteomyelitis as is evident with bone marrow edema. this will likely prove to be recalcitrant to intravenous antibiosis. Pending radiographic radiologist assessment of the magnetic resonance image of the left foot for confirmation of suspected osteomyelitis based on initial interpretation. Patient may be a candidate for limited amputation of the left foot possibly first ray amputation (metatarsal and hallux ). September 22, 2016: After reviewing the radiologist report confirmation of osteomyelitis infection of the left first metatarsal and first metatarsal phalangeal joint left hallux. This becomes. Due to partial first ray and rotation taking the hallux and half of the distal half to two thirds of the left first metatarsal. This is to be done Sunday. In the meanwhile patient will continue antibiotic therapy. Due to the extensive infectious nature of this wound 6 weeks of antibiotic therapy will still be prudent following the amputation Sunday. Patient will follow up in clinic 3 days following the procedure he will need extensive shoe modification wound. Treatment to ensure that there is no further dehiscence of this wound. extensive discussion performed patient regarding the pros and cons of performing such an amputation. He understands the ramifications and alteration to his lifestyle. He knows that he will have to wear custom shoe gear at all times following the procedure and there will be an extensive 2-3 months of recovery course prior to being a stable position to perform outdoor activities on a regular basis. 09/23/16: No major changes in past 24hrs. He has had extensive talks with his and family regarding the procedure. There have not been new concerns since yesterday's discussion. The procedure is still planned for Sunday about about 8AM. 09/24/16: Chat with family, and son, they are "on board" with the treatment plan. They desire to have Phill in a rehab facility as they want to ensure the best recovery possible. He states that he is mentally ready for the procedure tomorrow moring. Qualifiers: Encounter type: subsequent encounter Qualified Code(s): T81.31XD - Disruption of external operation (surgical) wound, not elsewhere classified, subsequent encounter (2) Cellulitis Status: Acute (3) Osteomyelitis Status: Acute Qualifiers: Osteomyelitis type: other chronic Osteomyelitis location: foot Laterality : right Qualified Code(s): M86.671 - Other chronic osteomyelitis, right ankle and foot (4) Cellulitis of left foot Status: Acute (5) Osteomyelitis of ankle or foot Status: Acute
[2016-09-24] MEDS: traZODone HCL 50 MG TABLET PO SCH (21:12)
[2016-09-25] MEDS: HYDROmorphone 2 MG/ML SYRINGE IV PRN ×13 (00:59→23:35)
[2016-09-25] MEDS: oxyCODONE/APAP 5/325MG TABLET PO PRN ×6 (01:00→23:36)
[2016-09-25] MEDS: 0.9 % SODIUM CHLORIDE 10 ML SYRINGE IV SCH ×3 (06:15→20:29)
[2016-09-25] MEDS: IMIPENEM/CILASTATIN SODIUM 1,000 MG in 0.9 % SODIUM CHLORIDE 250 ML IV SCH ×3 (06:16→21:58)
--- NOTE | 2016-09-25 07:23 | Brief Operative Note ---
Date of procedure: 09/25/16 Pre-op diagnosis: Osteomyelitis left first metatarsal Post-op diagnosis: same Procedure: Partial amputation left first ray Grafts/Implants: No Anesthesia: GETA Complications: none Surgeon: Darci Jacobs Estimated blood loss (cc): 50 Specimens Removed/Pathology: other (left first metatarsal) Condition: stable Disposition: floor
[2016-09-25] MEDS ORDERED: fentaNYL 100 MCG/2 ML VIAL IV PRN (08:20)
[2016-09-25] MEDS ORDERED: BENZOCAINE/MENTHOL 1 LOZENGE PO PRN (08:20)
[2016-09-25] MEDS ORDERED: IPRATROPIUM/ALBUTEROL 3 ML AMPUL.NEB NEB PRN (08:20)
[2016-09-25] MEDS ORDERED: ONDANSETRON 4 MG/2 ML VIAL IV PRN (08:20)
[2016-09-25] MEDS ORDERED: diphenhydrAMINE 50 MG/ML VIAL IV PRN (08:20)
[2016-09-25] MEDS ORDERED: MEPERIDINE 25 MG/ML SYRINGE IV PRN (08:20)
[2016-09-25] MEDS ORDERED: METHOCARBAMOL 1,000 MG/10 ML VIAL IV PRN (08:20)
[2016-09-25] MEDS ORDERED: LACTATED RINGERS 1,000 ML IV SCH (08:30)
[2016-09-25] MEDS ORDERED: KETAMINE 100 MG/ML ML IV ONE (08:35)
[2016-09-25] MEDS ORDERED: LIDOCAINE HCL/PF 100 MG/5 ML SYRINGE IV ONE (08:35)
[2016-09-25] MEDS ORDERED: MIDAZOLAM 5 MG/5 ML VIAL IV ONE (08:35)
[2016-09-25] MEDS ORDERED: PROPOFOL 200 MG/20 ML VIAL IV ONE (08:35)
[2016-09-25] MEDS ORDERED: fentaNYL 100 MCG/2 ML VIAL IV ONE (08:35)
[2016-09-25] MEDS ORDERED: ONDANSETRON 4 MG/2 ML VIAL IV ONE (08:35)
[2016-09-25] MEDS ORDERED: DEXAMETHASONE 10 MG/ML VIAL IV ONE (08:35)
[2016-09-25] MEDS: VANCOMYCIN 1,000 MG in 0.9 % SODIUM CHLORIDE 250 ML IV SCH ×2 (09:00→20:29)
[2016-09-25] MEDS ORDERED: BUPIVACAINE PF 0.5% 30 ML VIAL IJ ONE (09:03)
[2016-09-25] MEDS ORDERED: METOPROLOL TARTRATE 5 MG/5 ML VIAL IV ONE (10:07)
[2016-09-25] MEDS: METOPROLOL TARTRATE 5 MG/5 ML VIAL IV SCH ×2 (10:10→10:52)
[2016-09-25] MEDS: morphine 15 MG TAB.SR.12H PO SCH ×2 (10:54→20:27)
[2016-09-25] MEDS: ENOXAPARIN 40 MG/0.4 ML SYRINGE SQ SCH (12:00)
[2016-09-25] MEDS: LACTOBACILLUS 1 CAPSULE PO SCH ×2 (12:01→20:26)
[2016-09-25] MEDS: MULTIVIT,THER IRON,CA,FA & MIN 1 TABLET PO SCH (12:02)
[2016-09-25] MEDS: SERTRALINE 50 MG TABLET PO SCH (12:02)
[2016-09-25] MEDS: busPIRone 5 MG TABLET PO SCH ×2 (12:02→20:27)
[2016-09-25] MEDS: IBUPROFEN 600 MG TABLET PO SCH ×3 (12:02→20:28)
[2016-09-25] MEDS: NICOTINE 7 MG PATCH TOPICAL SCH (12:28)
--- NOTE | 2016-09-25 14:16 | Operative Note ---
DATE OF OPERATION: 09/25/2016 PREOPERATIVE DIAGNOSIS: Osteomyelitis left first metatarsal. POSTOPERATIVE DIAGNOSIS: Osteomyelitis left first metatarsal. PROCEDURE: Partial amputation left first ray. SURGEON: Darci Jacobs DPM ANESTHESIA: GETA. COMPLICATIONS: None. SPECIMEN: Left first metatarsal and hallux. CONDITION: Stable. DISPOSITION: Floor. PROCEDURE IN DETAIL: The patient was brought to the operating room and placed on the operating table in the supine position. The left lower extremity was scrubbed, prepped and draped in the usual aseptic manner. A pneumatic thigh tourniquet was placed. General anesthesia was initiated. On inspection there was a wound dehiscence site of the left first dorsal aspect. It was approximately 6 cm in length. An Esmarch was applied. The tourniquet was inflated to 150 mmHg. The scar tissue was excised using #10 blade and a tennis racquet incision was made through the full thickness dissection. There was noted to be some necrotic tissue and purulent drainage dorsally. Careful sharp and blunt dissection was performed around the periphery of the metatarsal bone into the hallux. The bone and hallux were then passed onto the operative field and sent for pathologic analysis. Bleeding vessels were cauterized using a Bovie and closure was performed with 3-0 Vicryl in a simple interrupted suture fashion to the deep tissues to close space. Additional rasping was performed on the midsection of the metatarsal shaft to provide the smooth surface. The skin was then coapted with 3-0 Nylon in a horizontal vertical and simple interrupted suture fashion. An additional 22 mL 0.5% Marcaine plain was used to block the first ray in a myobloc fashion. Postoperative dressings were applied consisting of Xeroform 4 x 4 gauze, Kerlix, and RICKEY wrap. Patient tolerated the procedure and anesthesia well. The tourniquet was deflated with immediate hyperemia returning to the foot. He was transferred to unit to the Post-Anesthetic Care Unit to be back on the floor for antibiotic therapy. [id number]:rob Job ID: [id number] Doc ID: [id number] Darci Jacobs DPM
[2016-09-25] MEDS: LORazepam 0.5 MG TABLET PO PRN (17:56)
--- NOTE | 2016-09-25 18:58 | Internal Med Progress Note ---
Medical - PN: Subj Patient information: Note initiated : 09/25/16 at 6:56 pm Service Date, if different from initiated Date: [] Patient: Rock Narayan 56 y/o M admitted on 09/17/16 for Recheck of left foot wound. Chief Complaint: [] Interval history: September 17, 2016: History of present illness: Mr. Narayan is a 56 year old man with a history of osteomyelitis of his left foot. He apparently has had difficulty keeping appointments, and has generally been noncompliant with care. He had a surgical procedure with Dr. Jc Nolan, which subsequently became infected. He then had a revision with Dr. Morales, and that wound dehisced. He has followed up for wound care at both [facility] and [facility], and was lost to follow-up. He reports that he has been on antibiotics both oral and IV, intermittently for about 60 days now. He tells me that he developed a left foot infection in November 2015. I believe he was treated as an inpatient at [facility], and underwent a surgical procedure with Dr. Nolan. He says the infection then came back and then he followed up with Dr. Morales, and had another surgery. He says he was then treated for approximately 60 days with IV antibiotics from January to March , and that he did not miss an appointment. At some point he was also followed at our wound care clinic, and says he was discharged from there, even though the wound was still a little bit open. He was told it would close up on its own eventually, but he says it did not. He got very frustrated with the deliverer outside, so he decided to stop seeing them. He has been in and out of the emergency room whenever the foot flares up and starts to drain again. He has been treated with various oral antibiotics, including ciprofloxacin and Bactrim. He believes he had an MRI over at [facility] about 6 weeks ago, that showed ongoing osteomyelitis. His sister was diagnosed with lung cancer not long ago, and he decided to forget about his foot while he tried to help her through her cancer. He has been experiencing fever and chills the last few days, and feeling dizzy. He notes he has had intermittent nausea, vomiting, and diarrhea. The diarrhea tends to wax and wane a bit. He also has a mild cough for the last few days, which is nonproductive. He was seen in our emergency room on September 13, and wound cultures were done. I believe he was referred to orthopedics, but did not make that appointment. He presented back to the emergency room today complaining of fever and chills, and extreme frustration with his inability to get his foot healed. He says his sister, who appears to be dying of her cancer, strongly encouraged him to get treatment for his foot, and this is what his family wants as well. He otherwise denies headaches, new eye or ear symptoms, sore throat, chest pain or palpitations, shortness of breath, abdominal pain, hematemesis or bright red blood per rectum, dysuria. He initially denied depression, but then admits he has been very frustrated and that he often cries himself to sleep because he is so frustrated with his health. He has been seeing Dr. Hadley, but apparently Dr. hadley is getting ready to retire. It has been suggested that he get a new primary care physician. Dr. Hadley has been treating him with Seroquel, but the patient's understanding was that this was to help him sleep, and not necessarily for depression or psychosis. He denies any previous diagnosis of depression or bipolar disorder. September 18: Today, the patient notes he is feeling a bit better, and a bit more optimistic about healing his foot. I saw him at the same time that Dr. Flynn saw him this morning. The patient has been noticing increasing foot pain, and does note that he had some sweats last night. Otherwise though he is having less chills, he denies chest pain or palpitations, shortness of breath, abdominal pain, nausea or vomiting or diarrhea or dysuria. Later today he did have a loose stool again, but C. difficile screen was negative. His and son were also in the room with him today, and he reports he is agreeable to trying antidepressants for his depression and anxiety symptoms. September 19: Today, the patient notes he is having increasing pain in his foot. It has been throbbing, and he is having a difficult time keeping it control. His family brought him in a knee brace from home, and he did put that on his left knee, and it appears it might be aggravating the swelling in his left foot. Dr. Sahu of podiatry has not been in to see him yet. Dr. marie he thinks that they will manage this just with IV antibiotics long-term. PICC line is to be placed today. The patient notes he seems to have abdominal cramping and diarrhea after every dose of IV Zosyn. He is wondering what to do about that. He is still feeling restless and anxious quite frequently. He is not sleeping well. Otherwise, he denies fever or chills, but often feels warm. He denies headaches or dizziness, chest pain or palpitations, shortness of breath, nausea or vomiting, dysuria 09/20: Still having 8-9/10 pain. He is only using short-acting pain meds. Would like to start some long-acting opiates. He is tolerating the imipenem with no GI side effects. I d/w Dr. Sahu re: plan. Will plan for at least 6 weeks of IV Abx. Prior cx unlikely to be helpful as the wound is so chronic; Dr. Sahu may do bone bx if he decides to take pt to debridement. he will review MRI from [facility] first . 09/21: patient seen and examined. No acute overnight events, been reasonably controlled at this point in time. He is on sustained release morphine and when necessary oxycodone the patient is scheduled to have an MRI this afternoon, this MRI was recommended for further plan of care. Dr. SAHU, the deliverer outside and Dr. Peck the commodity management specialist following the patient. The patient notes that he has diarrhea His C. difficile has been tested and is negative. Labs are unremarkable. He is afebrile and in apparently stable. He is presently on broad-spectrum antibiotics. Wound culture is growing gram-negative activity However, at this point in time, he will need an accurate bone culture to determine the right antibacterial agent. 09/22 patient seen and examined. No acute overnight events, MRI done yesterday is reviewed with the patient by podiatry. Plan to have amputation done on Sunday. Patient will likely need 6 weeks of IV antibiotics after surgery. The patient pain is much better controlled at this point in time. The patient also reports improvement in diarrhea. 09/23: Pt seen examined, no acute overnight issues, he did struggle with pain control ovenright, WIll increase the dose of dilaudid from 0.5mg to 1mg q2 hrs, continue long acting morphine. patient has no other concerns. Plan for surgery sunday. Will needl jose term antibiotics after same. 09/24: Pt seen examined, no acute overnight issues, pain much better with increased dose of dilaudid, will have to adjust dosing post op. Plan for surgery in AM, otherwise no new issues. 09/25: Pt seen examined, s/p surgery Notes increased soreness despite using 1 mg of Dilaudid. No other complaints. Tolerated the procedure well. We will increase the dose of Dilaudid 2 mg every 2 hours as needed. Reassess pain status in the morning. Long-term acute care facility has been consulted for patient evaluation. Continue proximal spectrum IV antibiotics. Need to follow the bone cultures. Pertinent ROS: Denies headache, dizziness Denies chest pain, palpitations Denies cough or shortness of breath Denies abdominal pain, nausea or vomiting. - Constitutional Vitals: Vital Signs Temp Pulse Resp BP Pulse Ox 97.6 F 74 16 151/81 92 09/25/16 16:00 09/25/16 12:00 09/25/16 16:00 09/25/16 16:00 09/25/16 16:00 Period Temp Pulse Resp BP Sys/Torrez Pulse Ox Last 24 Hr 96.9 F-98.4 F 63-96 10-20 122-190/62-99 89-97 Intake and Output 09/25/16 09/25/16 09/25/16 05:59 13:59 21:59 Intake Total 1400 / 1400 1750 / 1750 Output Total 1220 / 1220 Balance 1400 / 1400 530 / 530 Intake & Output: Intake & Output 09/25/16 09/25/16 09/25/16 05:59 13:59 21:59 Intake Total 1400 / 1400 1750 / 1750 Output Total 1220 / 1220 Balance 1400 / 1400 530 / 530 Intake: IV 500 / 500 1150 / 1150 Primaxin 1,000 mg In 250 / 250 250 / 250 Sodium Chloride 0.9% 250 ml @ 250 mls/hr IV Q8H [facility] Rx#:[id number] Vancomycin 1,000 mg In 250 / 250 250 / 250 Sodium Chloride 0.9% 250 ml @ 250 mls/hr IV Q12H [facility] Rx#:[id number] Oral 900 / 900 600 / 600 Output: Urine Catheter Amount 450 / 450 Void Amount 750 / 750 Estimated Blood Loss Other: Meal Nourishment/Supplement Lunch Percent of Meal Consumed 100% 100% Feeding Ability Independent Independent # Voids 3 1 1 Exam: Constitutional; Afebrile, cooperative, alert, not in distress. Eyes- No icterus, , No periorbital swelling Ears- Ext ear normal, hearing normal to conversation. Neck- Midline trachea, supple Respiratory system: Air Entry equal on both sides, No crackles or wheezing, no rhonchi. CVS- Rate rhythm regular, S1,S2 heard, no gallop, no rub. Abdomen- Soft nontender abdomen, no organomegaly, no tenderness, no guarding or rigidity, [employer]- AOOx3, moving all extremities, no gross focal deficit noted. Medical - PN: Obj Da - Labs CBC & Chem 7: 09/22/16 06:00 09/22/16 06:00 Labs: Abnormal Lab Results 09/24/16 06:44 Urine Glucose (UA) 50 A Meds: Medications Acetaminophen (Tylenol) 650 mg PO Q6HP PRN PRN Reason: PAIN/FEVER > 101 Last Admin: 09/18/16 03:45 Dose: 650 mg Buspirone HCl (Buspar) 5 mg PO BID [facility] Last Admin: 09/25/16 12:02 Dose: 5 mg Docusate Sodium (Colace) 100 mg PO BID PRN PRN Reason: Constipation Enoxaparin Sodium (Lovenox) 40 mg SQ DAILY [facility] Last Admin: 09/25/16 12:00 Dose: Not Given Heparin Sodium (Porcine) (Heparin Flush) 2 ml IV Q12 [facility] Last Admin: 09/25/16 17:06 Dose: 2 ml Hydromorphone HCl (Dilaudid) 2 mg IV Q2HP PRN PRN Reason: Pain Imipenem/Cilastatin Sodium 1, (000 mg/ Sodium Chloride) 250 mls @ 250 mls/hr IV Q8H [facility] Last Admin: 09/25/16 14:54 Dose: 250 mls/hr Vancomycin HCl 1,000 mg/ (Sodium Chloride) 250 mls @ 250 mls/hr IV Q12H [facility] Last Infusion: 09/25/16 10:14 Dose: Infused Ibuprofen (Motrin) 600 mg PO TID [facility] Last Admin: 09/25/16 14:55 Dose: 600 mg Iron Carb/Multivit/Supervisor Yard/Folic Acid (Multivitamin W/Minerals) 1 tab PO DAILY [facility] Last Admin: 09/25/16 12:02 Dose: 1 tab Lactobacillus Rhamnosus (Culturelle) 1 cap PO BID [facility] Last Admin: 09/25/16 12:01 Dose: 1 cap Loperamide HCl (Imodium) 2 mg PO PRN PRN PRN Reason: Diarrhea Last Admin: 09/20/16 17:51 Dose: 2 mg Lorazepam (Ativan) 0.5 mg PO Q8HP PRN PRN Reason: ANXIETY/SEDATION Last Admin: 09/25/16 17:56 Dose: 0.5 mg Magnesium Hydroxide (Milk Of Magnesia) 30 ml PO DAILYP PRN PRN Reason: Constipation Morphine Sulfate (Ms Contin) 15 mg PO BID [facility] Last Admin: 09/25/16 10:54 Dose: 15 mg Naloxone HCl (Narcan) 0.1 mg IV Q2MIN PRN PRN Reason: Opiate Reversal Nicotine (Nicoderm) 7 mg TOPICAL DAILY@1000 [facility] Last Admin: 09/25/16 12:28 Dose: Not Given Ondansetron HCl (Zofran Odt) 4 mg SL Q6HP PRN PRN Reason: Nausea And Vomiting Last Admin: 09/21/16 08:28 Dose: 4 mg Oxycodone/Acetaminophen (Percocet 5-325 Mg) 1 - 2 tab PO Q4-6HP PRN PRN Reason: Pain Last Admin: 09/25/16 17:05 Dose: 2 tab Quetiapine Fumarate (Seroquel) 75 mg PO [facility] Last Admin: 09/24/16 22:13 Dose: Not Given Sertraline HCl (Zoloft) 50 mg PO DAILY [facility] Last Admin: 09/25/16 12:02 Dose: 50 mg Sodium Chloride (Saline Flush) 10 ml IV Q8 [facility] Last Admin: 09/25/16 14:54 Dose: 10 ml Sodium Chloride (Saline Flush) 10 ml IV UD PRN PRN Reason: FLUSH Last Admin: 09/24/16 23:55 Dose: 10 ml Trazodone HCl (Desyrel) 50 mg PO [facility] Last Admin: 09/24/16 21:12 Dose: 50 mg Vancomycin HCl (Vancomycin Per Pharmacy) 1 order IV UD [facility] Medical - PN: A/P - Time Spent With Patient Total time spent is greater than 50% in coordination of care (as documented) at patient's floor/unit and/or counseling patient: - Narrative A/P Narrative: A/P Left Foot osteomyelitis Acute vs Acute on Chr MRI shows OM, s/p surgery, await bone culture results. will need atleast 6 weeks of IVabx, can be titrated based on bone culture. PICC in place On Vanco 09/17 Imipenum 09/19, was on zosyn priolr to thyat (stopped due to gi upset) Foot pain on ms Contin, oxycodone, ibuprofen,and Dilaudid, increase dose of Dilaudid to 2 mg q2hrs prn for now, monitor. if needed will increase the dose of MScontin. consider [employer] pump if needed. Depression On seroquel buspar and zoloft continue same. chr diarrhea: start on probioitics , cdiff is neg. clnically resolved., prn imodium. DVT hep sq Diet regular Full code Disp: likely LTAC facility for wound care and IV antibiotics. Pt will need new pcp at discharge Medical - PN: Qual - Stroke Symptom Onset Unknown: No - VTE Deep Vein Thrombosis/Pulmonary Embolism Present on Admission: No
[2016-09-25] MEDS: traZODone HCL 50 MG TABLET PO SCH (20:28)
[2016-09-25] MEDS: QUEtiapine 25 MG TABLET PO SCH (23:28)
[2016-09-26] MEDS: oxyCODONE/APAP 5/325MG TABLET PO PRN ×4 (04:40→20:10)
[2016-09-26] MEDS: HYDROmorphone 2 MG/ML SYRINGE IV PRN ×7 (04:40→20:13)
[2016-09-26] MEDS: IMIPENEM/CILASTATIN SODIUM 1,000 MG in 0.9 % SODIUM CHLORIDE 250 ML IV SCH ×3 (06:08→22:09)
[2016-09-26] MEDS: 0.9 % SODIUM CHLORIDE 10 ML SYRINGE IV SCH ×3 (06:08→23:24)
[2016-09-26] MEDS: KETOROLAC 30 MG/ML VIAL IV SCH ×3 (07:37→19:10)
[2016-09-26] MEDS: MULTIVIT,THER IRON,CA,FA & MIN 1 TABLET PO SCH (08:45)
[2016-09-26] MEDS: ENOXAPARIN 40 MG/0.4 ML SYRINGE SQ SCH (08:46)
[2016-09-26] MEDS: morphine 15 MG TAB.SR.12H PO SCH ×2 (08:46→20:59)
[2016-09-26] MEDS: busPIRone 5 MG TABLET PO SCH ×2 (08:46→21:02)
[2016-09-26] MEDS: SERTRALINE 50 MG TABLET PO SCH (08:46)
[2016-09-26] MEDS: VANCOMYCIN 1,000 MG in 0.9 % SODIUM CHLORIDE 250 ML IV SCH ×2 (08:47→20:55)
[2016-09-26] MEDS: LACTOBACILLUS 1 CAPSULE PO SCH ×2 (08:47→21:00)
--- NOTE | 2016-09-26 09:03 | Orthopedic Progress Note ---
Subjective Patient information: Note initiated : 09/26/16 at 9:00 am Service Date, if different from initiated Date: [] Patient: Rock Narayan 56 y/o M admitted on 09/17/16 for Recheck of left foot wound. Chief Complaint: [had surgery on left foot] Principal diagnosis: osteomyelitis left foot Interval history: had a difficult time sleeping last night from episodes of diarrhea and pain Pertinent ROS: mild throbbing sensation from left foot Objective Vital signs: Vital Signs Temp Pulse Pulse Resp BP BP Pulse Ox 09/26/16 08:00 98.6 F 20 195/103 98 09/26/16 07:35 83 96 09/26/16 04:00 97.5 F 90 20 204/100 09/25/16 23:26 97.9 F 87 20 197/106 09/25/16 18:59 80 20 170/96 09/25/16 16:00 97.6 F 16 151/81 92 09/25/16 14:29 165/73 94 09/25/16 14:17 148/94 92 09/25/16 13:36 165/73 09/25/16 13:31 97.9 F 122/62 09/25/16 13:05 158/89 92 09/25/16 13:01 142/70 89 L 09/25/16 12:20 136/86 92 09/25/16 12:05 97.9 F 14 160/99 96 09/25/16 12:00 96.9 F L 74 20 155/96 92 09/25/16 10:31 69 16 165/88 96 09/25/16 10:21 97.8 F 75 12 165/84 95 09/25/16 10:12 67 12 161/86 95 09/25/16 09:59 82 12 175/86 93 09/25/16 09:54 88 12 185/99 93 09/25/16 09:48 96 H 12 185/91 96 09/25/16 09:43 97.2 F 85 10 L 150/73 97 Intake and Output 09/25/16 09/26/16 09/26/16 21:59 05:59 13:59 Intake Total 1850 / 1850 650 / 650 250 / 250 Output Total 900 / 900 Balance 1850 / 1850 -250 / -250 250 / 250 Intake: IV 250 / 250 250 / 250 250 / 250 Primaxin 1,000 mg In 250 / 250 250 / 250 Sodium Chloride 0.9% 250 ml @ 250 mls/hr IV Q8H [facility] Rx#:[id number] Vancomycin 1,000 mg In 250 / 250 Sodium Chloride 0.9% 250 ml @ 250 mls/hr IV Q12H [facility] Rx#:[id number] Oral 1600 / 1600 400 / 400 Output: Void Amount 900 / 900 Other: Meal Lunch Percent of Meal Consumed 100% Feeding Ability Independent # Voids 1 1 Weight 256 lb Intake & Output: Intake & Output 09/25/16 09/26/16 09/26/16 21:59 05:59 13:59 Intake Total 1850 / 1850 650 / 650 250 / 250 Output Total 900 / 900 Balance 1850 / 1850 -250 / -250 250 / 250 Weight 256 lb Intake: IV 250 / 250 250 / 250 250 / 250 Primaxin 1,000 mg In 250 / 250 250 / 250 Sodium Chloride 0.9% 250 ml @ 250 mls/hr IV Q8H [facility] Rx#:[id number] Vancomycin 1,000 mg In 250 / 250 Sodium Chloride 0.9% 250 ml @ 250 mls/hr IV Q12H [facility] Rx#:[id number] Oral 1600 / 1600 400 / 400 Output: Void Amount 900 / 900 Other: Meal Lunch Percent of Meal Consumed 100% Feeding Ability Independent # Voids 1 1 Incision: Yes clean and dry Dressing: Yes intact Weight bearing status: non (0 weightbearing all times to left foot) Neurological exam IM: Yes motor sensory deficit Extremities exam IM: Yes joint swelling, Yes tenderness - Labs CBC & BMP: 09/22/16 06:00 09/22/16 06:00 Labs: Orthopedic Labs 09/25/16 06:10 PT 13.5 INR 1.0 APTT 34 09/22/16 09/21/16 09/20/16 06:00 04:55 04:00 Hgb 13.3 L 13.2 L 13.4 L Hct 38.5 L 37.6 L 38.4 L 09/19/16 09/18/16 05:15 04:35 Hgb 14.0 14.1 Hct 40.4 L 40.7 L Assessment and Plan (1) Wound dehiscence, surgical Status: Acute Priority: High Comment: 09/24/16: Chat with family, and son , they are "on board" with the treatment plan. They desire to have Phill in a rehab facility as they want to ensure the best recovery possible. He states that he is mentally ready for the procedure tomorrow moring. September 26, 2016; patient is status post partial first ray amputation of left first ray. He had difficulty sleeping last night. He's had difficulty staying off his foot. There is an episode of excess bleeding which was reinforced by nursing last night. It was reviewed with patient today's to stay completely nonweightbearing to left operative extremity. He understands that he will be transferred to postoperative care facility within the next couple days. Qualifiers: Encounter type: subsequent encounter Qualified Code(s): T81.31XD - Disruption of external operation (surgical) wound, not elsewhere classified, subsequent encounter (2) Cellulitis Status: Acute (3) Osteomyelitis Status: Acute Qualifiers: Osteomyelitis type: other chronic Osteomyelitis location: foot Laterality : right Qualified Code(s): M86.671 - Other chronic osteomyelitis, right ankle and foot (4) Cellulitis of left foot Status: Acute (5) Osteomyelitis of ankle or foot Status: Acute
[2016-09-26] MEDS: NICOTINE 7 MG PATCH TOPICAL SCH (09:51)
--- NOTE | 2016-09-26 10:35 | XRay Report ---
CLINICAL INFORMATION: Cough COMPARISON: 09/19/2016 FINDINGS: PICC line in stable satisfactory position. Cardiomediastinal silhouette and pulmonary vessels are normal. Minor bibasilar atelectasis noted. No effusions. Bones soft tissues normal IMPRESSION: Minor bibasilar atelectasis Interpreted and Authenticated by: Parish Mora 09/26/16
[2016-09-26] MEDS: PANTOPRAZOLE 40 MG VIAL IV SCH (10:39)
[2016-09-26] MEDS: IBUPROFEN 600 MG TABLET PO SCH (12:01)
[2016-09-26] MEDS: LORazepam 0.5 MG TABLET PO PRN (14:35)
--- NOTE | 2016-09-26 17:36 | Internal Med Progress Note ---
Medical - PN: Subj Patient information: Note initiated : 09/26/16 at 5:34 pm Service Date, if different from initiated Date: [] Patient: Rock Narayan 56 y/o M admitted on 09/17/16 for Recheck of left foot wound. Chief Complaint: [] Interval history: September 17, 2016: History of present illness: Mr. Narayan is a 56 year old man with a history of osteomyelitis of his left foot. He apparently has had difficulty keeping appointments, and has generally been noncompliant with care. He had a surgical procedure with Dr. Jc Nolan, which subsequently became infected. He then had a revision with Dr. Morales, and that wound dehisced. He has followed up for wound care at both [facility] and [facility], and was lost to follow-up. He reports that he has been on antibiotics both oral and IV, intermittently for about 60 days now. He tells me that he developed a left foot infection in November 2015. I believe he was treated as an inpatient at [facility], and underwent a surgical procedure with Dr. Nolan. He says the infection then came back and then he followed up with Dr. Morales, and had another surgery. He says he was then treated for approximately 60 days with IV antibiotics from January to March , and that he did not miss an appointment. At some point he was also followed at our wound care clinic, and says he was discharged from there, even though the wound was still a little bit open. He was told it would close up on its own eventually, but he says it did not. He got very frustrated with the bottle house pumper, so he decided to stop seeing them. He has been in and out of the emergency room whenever the foot flares up and starts to drain again. He has been treated with various oral antibiotics, including ciprofloxacin and Bactrim. He believes he had an MRI over at [facility] about 6 weeks ago, that showed ongoing osteomyelitis. His sister was diagnosed with lung cancer not long ago, and he decided to forget about his foot while he tried to help her through her cancer. He has been experiencing fever and chills the last few days, and feeling dizzy. He notes he has had intermittent nausea, vomiting, and diarrhea. The diarrhea tends to wax and wane a bit. He also has a mild cough for the last few days, which is nonproductive. He was seen in our emergency room on September 13, and wound cultures were done. I believe he was referred to orthopedics, but did not make that appointment. He presented back to the emergency room today complaining of fever and chills, and extreme frustration with his inability to get his foot healed. He says his sister, who appears to be dying of her cancer, strongly encouraged him to get treatment for his foot, and this is what his family wants as well. He otherwise denies headaches, new eye or ear symptoms, sore throat, chest pain or palpitations, shortness of breath, abdominal pain, hematemesis or bright red blood per rectum, dysuria. He initially denied depression, but then admits he has been very frustrated and that he often cries himself to sleep because he is so frustrated with his health. He has been seeing Dr. Hadley, but apparently Dr. hadley is getting ready to retire. It has been suggested that he get a new primary care physician. Dr. Hadley has been treating him with Seroquel, but the patient's understanding was that this was to help him sleep, and not necessarily for depression or psychosis. He denies any previous diagnosis of depression or bipolar disorder. September 18: Today, the patient notes he is feeling a bit better, and a bit more optimistic about healing his foot. I saw him at the same time that Dr. Flynn saw him this morning. The patient has been noticing increasing foot pain, and does note that he had some sweats last night. Otherwise though he is having less chills, he denies chest pain or palpitations, shortness of breath, abdominal pain, nausea or vomiting or diarrhea or dysuria. Later today he did have a loose stool again, but C. difficile screen was negative. His and son were also in the room with him today, and he reports he is agreeable to trying antidepressants for his depression and anxiety symptoms. September 19: Today, the patient notes he is having increasing pain in his foot. It has been throbbing, and he is having a difficult time keeping it control. His family brought him in a knee brace from home, and he did put that on his left knee, and it appears it might be aggravating the swelling in his left foot. Dr. Sahu of podiatry has not been in to see him yet. Dr. marie he thinks that they will manage this just with IV antibiotics long-term. PICC line is to be placed today. The patient notes he seems to have abdominal cramping and diarrhea after every dose of IV Zosyn. He is wondering what to do about that. He is still feeling restless and anxious quite frequently. He is not sleeping well. Otherwise, he denies fever or chills, but often feels warm. He denies headaches or dizziness, chest pain or palpitations, shortness of breath, nausea or vomiting, dysuria 09/20: Still having 8-9/10 pain. He is only using short-acting pain meds. Would like to start some long-acting opiates. He is tolerating the imipenem with no GI side effects. I d/w Dr. Sahu re: plan. Will plan for at least 6 weeks of IV Abx. Prior cx unlikely to be helpful as the wound is so chronic; Dr. Sahu may do bone bx if he decides to take pt to debridement. he will review MRI from [facility] first . 09/21: patient seen and examined. No acute overnight events, been reasonably controlled at this point in time. He is on sustained release morphine and when necessary oxycodone the patient is scheduled to have an MRI this afternoon, this MRI was recommended for further plan of care. Dr. SAHU, the bottle house pumper and Dr. Peck the environmental compliance specialist following the patient. The patient notes that he has diarrhea His C. difficile has been tested and is negative. Labs are unremarkable. He is afebrile and in apparently stable. He is presently on broad-spectrum antibiotics. Wound culture is growing gram-negative activity However, at this point in time, he will need an accurate bone culture to determine the right antibacterial agent. 09/22 patient seen and examined. No acute overnight events, MRI done yesterday is reviewed with the patient by podiatry. Plan to have amputation done on Sunday. Patient will likely need 6 weeks of IV antibiotics after surgery. The patient pain is much better controlled at this point in time. The patient also reports improvement in diarrhea. 09/23: Pt seen examined, no acute overnight issues, he did struggle with pain control ovenright, WIll increase the dose of dilaudid from 0.5mg to 1mg q2 hrs, continue long acting morphine. patient has no other concerns. Plan for surgery sunday. Will needl jose term antibiotics after same. 09/24: Pt seen examined, no acute overnight issues, pain much better with increased dose of dilaudid, will have to adjust dosing post op. Plan for surgery in AM, otherwise no new issues. 09/25: Pt seen examined, s/p surgery Notes increased soreness despite using 1 mg of Dilaudid. No other complaints. Tolerated the procedure well. We will increase the dose of Dilaudid 2 mg every 2 hours as needed. Reassess pain status in the morning. Long-term acute care facility has been consulted for patient evaluation. Continue proximal spectrum IV antibiotics. Need to follow the bone cultures. 09/26: patient seen and examined, so yo, patient is supposed to be on weightbearing as much as possible. However, while walking downthe hallway. I have seen the patient bearing some weight. The patient otherwise reports that he had a rough night, had some cough, which was bothering him as well as burning pain in the epigastric region which radiated up towards the esophagus. Chest x-ray was done which is reported negative. The patient has been started on IV PPI. The patient's pain control is achieved by 2 mg of Dilaudid every 2 hours. This is double the dose of Dilaudid. He was getting yesterday. The patient reports significant pain to the nursing staff. However, the patient does not exhibit any symptoms of severe tenderness and pain. I will start the patient on Toradol for now and reassess the patient. Await surgery clearance for discharge to the rehabilitation facility Pertinent ROS: Denies headache, dizziness Denies chest pain, palpitations present cough , no shortness of breath present burning some nausea and vomiting. - Constitutional Vitals: Vital Signs Temp Pulse Resp BP Pulse Ox 98.0 F 83 20 180/91 97 09/26/16 16:00 09/26/16 07:35 09/26/16 12:00 09/26/16 16:00 09/26/16 16:00 Period Temp Pulse Resp BP Sys/Torrez Pulse Ox Last 24 Hr 97.1 F-98.6 F 80-90 20-20 170-204/79-106 96-98 Intake and Output 09/26/16 09/26/16 09/26/16 05:59 13:59 21:59 Intake Total 650 / 650 860 / 860 2850 / 2850 Output Total 900 / 900 Balance -250 / -250 860 / 860 2850 / 2850 Intake & Output: Intake & Output 09/26/16 09/26/16 09/26/16 05:59 13:59 21:59 Intake Total 650 / 650 860 / 860 2850 / 2850 Output Total 900 / 900 Balance -250 / -250 860 / 860 2850 / 2850 Intake: IV 250 / 250 500 / 500 250 / 250 Primaxin 1,000 mg In 250 / 250 250 / 250 Sodium Chloride 0.9% 250 ml @ 250 mls/hr IV Q8H [facility] Rx#:[id number] Vancomycin 1,000 mg In 250 / 250 250 / 250 Sodium Chloride 0.9% 250 ml @ 250 mls/hr IV Q12H [facility] Rx#:[id number] Oral 400 / 400 360 / 360 2600 / 2600 Output: Void Amount 900 / 900 Other: Meal Breakfast Lunch Percent of Meal Consumed 100% 25% Feeding Ability Independent # Voids 1 7 # Bowel Movements 1 Exam: Constitutional; Afebrile, cooperative, alert, not in distress. Eyes- No icterus, , No periorbital swelling Ears- Ext ear normal, hearing normal to conversation. Neck- Midline trachea, supple Respiratory system: Air Entry equal on both sides, No crackles or wheezing, no rhonchi. CVS- Rate rhythm regular, S1,S2 heard, no gallop, no rub. Abdomen- Soft nontender abdomen, no organomegaly, no tenderness, no guarding or rigidity, INVESTMENT SALES ASSISTANT- AOOx3, moving all extremities, no gross focal deficit noted. Medical - PN: Obj Da - Labs CBC & Chem 7: 09/22/16 06:00 09/22/16 06:00 Labs: Abnormal Lab Results 09/24/16 06:44 Urine Glucose (UA) 50 A Meds: Medications Acetaminophen (Tylenol) 650 mg PO Q6HP PRN PRN Reason: PAIN/FEVER > 101 Last Admin: 09/18/16 03:45 Dose: 650 mg Buspirone HCl (Buspar) 5 mg PO BID [facility] Last Admin: 09/26/16 08:46 Dose: 5 mg Docusate Sodium (Colace) 100 mg PO BID PRN PRN Reason: Constipation Enoxaparin Sodium (Lovenox) 40 mg SQ DAILY [facility] Last Admin: 09/26/16 08:46 Dose: 40 mg Heparin Sodium (Porcine) (Heparin Flush) 2 ml IV Q12 [facility] Last Admin: 09/26/16 08:47 Dose: 2 ml Hydromorphone HCl (Dilaudid) 2 mg IV Q2HP PRN PRN Reason: Pain Last Admin: 09/26/16 15:31 Dose: 2 mg Imipenem/Cilastatin Sodium 1, (000 mg/ Sodium Chloride) 250 mls @ 250 mls/hr IV Q8H [facility] Last Admin: 09/26/16 14:16 Dose: 250 mls/hr Vancomycin HCl 1,000 mg/ (Sodium Chloride) 250 mls @ 250 mls/hr IV Q12H [facility] Last Infusion: 09/26/16 15:43 Dose: Infused Iron Carb/Multivit/Sales Account Executive/Folic Acid (Multivitamin W/Minerals) 1 tab PO DAILY [facility] Last Admin: 09/26/16 08:45 Dose: 1 tab Ketorolac Tromethamine (Toradol) 30 mg IV Q6H [facility] Stop: 09/27/16 13:31 Last Admin: 09/26/16 14:16 Dose: 30 mg Lactobacillus Rhamnosus (Culturelle) 1 cap PO BID [facility] Last Admin: 09/26/16 08:47 Dose: 1 cap Loperamide HCl (Imodium) 2 mg PO PRN PRN PRN Reason: Diarrhea Last Admin: 09/20/16 17:51 Dose: 2 mg Lorazepam (Ativan) 0.5 mg PO Q8HP PRN PRN Reason: ANXIETY/SEDATION Last Admin: 09/26/16 14:35 Dose: 0.5 mg Magnesium Hydroxide (Milk Of Magnesia) 30 ml PO DAILYP PRN PRN Reason: Constipation Morphine Sulfate (Ms Contin) 15 mg PO BID [facility] Last Admin: 09/26/16 08:46 Dose: 15 mg Naloxone HCl (Narcan) 0.1 mg IV Q2MIN PRN PRN Reason: Opiate Reversal Nicotine (Nicoderm) 7 mg TOPICAL DAILY@1000 [facility] Last Admin: 09/26/16 09:51 Dose: Not Given Ondansetron HCl (Zofran Odt) 4 mg SL Q6HP PRN PRN Reason: Nausea And Vomiting Last Admin: 09/21/16 08:28 Dose: 4 mg Oxycodone/Acetaminophen (Percocet 5-325 Mg) 1 - 2 tab PO Q4-6HP PRN PRN Reason: Pain Last Admin: 09/26/16 16:31 Dose: 2 tab Pantoprazole Sodium (Protonix) 40 mg IV QAMAC [facility] Last Admin: 09/26/16 10:39 Dose: 40 mg Quetiapine Fumarate (Seroquel) 75 mg PO HS [facility] Last Admin: 09/25/16 23:28 Dose: Not Given Sertraline HCl (Zoloft) 50 mg PO DAILY [facility] Last Admin: 09/26/16 08:46 Dose: 50 mg Sodium Chloride (Saline Flush) 10 ml IV Q8 [facility] Last Admin: 09/26/16 15:41 Dose: 10 ml Sodium Chloride (Saline Flush) 10 ml IV UD PRN PRN Reason: FLUSH Last Admin: 09/24/16 23:55 Dose: 10 ml Trazodone HCl (Desyrel) 50 mg PO [facility] Last Admin: 09/25/16 20:28 Dose: 50 mg Vancomycin HCl (Vancomycin Per Pharmacy) 1 order IV UD [facility] Medical - PN: A/P - Time Spent With Patient Total time spent is greater than 50% in coordination of care (as documented) at patient's floor/unit and/or counseling patient: - Narrative A/P Narrative: A/P Left Foot osteomyelitis Acute vs Acute on Chr MRI shows OM, s/p surgery, await bone culture results. will need atleast 6 weeks of IVabx, can be titrated based on bone culture. PICC in place On Vanco 09/17 Imipenum 09/19, was on zosyn prior to that (stopped due to gi upset) Foot pain on ms Contin, oxycodone, ibuprofen,and Dilaudid, increase dose of Dilaudid to 2 mg q2hrs prn for now, monitor. will start on toradol for now. nausea vomiting, epigastric burning pain: LIkely reaction to anesthesia, IV ppi for now. Couigh: post anesthesia, CXR is neg, some atelectasis, INcentive spirometery. Depression On seroquel buspar and zoloft continue same. chr diarrhea: start on probioitics , cdiff is neg. clnically resolved., prn imodium. DVT hep sq Diet regular Full code Disp: likely LTAC facility for wound care and IV antibiotics. Pt will need new pcp at discharge Medical - PN: Qual - Stroke Symptom Onset Unknown: No - VTE Deep Vein Thrombosis/Pulmonary Embolism Present on Admission: No
[2016-09-26] MEDS: traZODone HCL 50 MG TABLET PO SCH (20:59)
[2016-09-26] MEDS: QUEtiapine 25 MG TABLET PO SCH (21:02)
[2016-09-27] MEDS: KETOROLAC 30 MG/ML VIAL IV SCH ×3 (01:33→15:54)
[2016-09-27] MEDS: HYDROmorphone 2 MG/ML SYRINGE IV PRN ×4 (01:41→11:44)
[2016-09-27] MEDS: oxyCODONE/APAP 5/325MG TABLET PO PRN ×3 (02:02→12:38)
[2016-09-27] MEDS: 0.9 % SODIUM CHLORIDE 10 ML SYRINGE IV SCH ×2 (06:03→08:15)
[2016-09-27] MEDS: IMIPENEM/CILASTATIN SODIUM 1,000 MG in 0.9 % SODIUM CHLORIDE 250 ML IV SCH (06:03)
[2016-09-27] MEDS ORDERED: IPRATROPIUM/ALBUTEROL 3 ML AMPUL.NEB NEB ONE ×2 (06:40→06:49)
[2016-09-27] MEDS ORDERED: guaiFENesin/DEXTROMETHORPHAN ORAL SOL PO PRN (07:19)
[2016-09-27] MEDS ORDERED: predniSONE 20 MG TABLET PO SCH ×2 (08:00→08:03)
[2016-09-27] MEDS: ENOXAPARIN 40 MG/0.4 ML SYRINGE SQ SCH (08:15)
[2016-09-27] MEDS: PANTOPRAZOLE 40 MG VIAL IV SCH (08:16)
[2016-09-27] MEDS: morphine 15 MG TAB.SR.12H PO SCH (08:16)
[2016-09-27] MEDS: SERTRALINE 50 MG TABLET PO SCH (08:17)
[2016-09-27] MEDS: MULTIVIT,THER IRON,CA,FA & MIN 1 TABLET PO SCH (08:17)
[2016-09-27] MEDS: busPIRone 5 MG TABLET PO SCH (08:17)
[2016-09-27] MEDS: NICOTINE 7 MG PATCH TOPICAL SCH ×2 (08:17→11:45)
[2016-09-27] MEDS: LORazepam 0.5 MG TABLET PO PRN (08:17)
--- NOTE | 2016-09-27 09:06 | Orthopedic Progress Note ---
Subjective Patient information: Note initiated : 09/27/16 at 9:03 am Service Date, if different from initiated Date: [] Patient: Rock Narayan 56 y/o M admitted on 09/17/16 for Recheck of left foot wound. Chief Complaint: [had a toe and part of foot amputated on the left side] Principal diagnosis: osteomyelitis left foot Interval history: some coughing over the past 24 hours and some pain from the left foot otherwise feels okay Pertinent ROS: pain and throbbing sensation from left foot, coughing, mild headache Objective Vital signs: Vital Signs Temp Pulse Pulse Resp BP BP Pulse Ox 09/27/16 07:49 67 24 H 98 09/27/16 07:46 68 16 09/27/16 03:04 97.5 F 62 18 141/68 92 09/26/16 19:06 97.7 F 63 16 175/83 96 09/26/16 16:00 98.0 F 180/91 97 09/26/16 12:00 97.1 F 20 174/79 96 Intake and Output 09/26/16 09/27/16 09/27/16 21:59 05:59 13:59 Intake Total 3100 / 3100 850 / 850 600 / 600 Balance 3100 / 3100 850 / 850 600 / 600 Intake: IV 500 / 500 250 / 250 Primaxin 1,000 mg In 250 / 250 250 / 250 Sodium Chloride 0.9% 250 ml @ 250 mls/hr IV Q8H [facility] Rx#:[id number] Vancomycin 1,000 mg In 250 / 250 Sodium Chloride 0.9% 250 ml @ 250 mls/hr IV Q12H [facility] Rx#:[id number] Oral 2600 / 2600 600 / 600 600 / 600 Other: Meal Lunch Percent of Meal Consumed 25% Feeding Ability Independent # Voids 7 1 1 # Bowel Movements 1 Weight 263 lb 8 oz Intake & Output: Intake & Output 09/26/16 09/27/16 09/27/16 21:59 05:59 13:59 Intake Total 3100 / 3100 850 / 850 600 / 600 Balance 3100 / 3100 850 / 850 600 / 600 Weight 263 lb 8 oz Intake: IV 500 / 500 250 / 250 Primaxin 1,000 mg In 250 / 250 250 / 250 Sodium Chloride 0.9% 250 ml @ 250 mls/hr IV Q8H [facility] Rx#:[id number] Vancomycin 1,000 mg In 250 / 250 Sodium Chloride 0.9% 250 ml @ 250 mls/hr IV Q12H [facility] Rx#:[id number] Oral 2600 / 2600 600 / 600 600 / 600 Other: Meal Lunch Percent of Meal Consumed 25% Feeding Ability Independent # Voids 7 1 1 # Bowel Movements 1 Incision: Yes healing, Yes clean and dry Incision clean and dry: Yes Dressing: Yes intact Weight bearing status: non (the left foot) Neurological exam IM: Yes motor sensory deficit, Yes motor sensory intact Extremities exam IM: Yes joint swelling, Yes pedal edema - Periperhal Pulses Peripheral pulses: 1+: dorsalis pedis (L), posterior tibialis (L), 2+: dorsalis pedis (R), posterior tibialis (R) - Labs CBC & BMP: 09/22/16 06:00 09/22/16 06:00 Labs: Orthopedic Labs 09/25/16 06:10 PT 13.5 INR 1.0 APTT 34 09/22/16 09/21/16 09/20/16 06:00 04:55 04:00 Hgb 13.3 L 13.2 L 13.4 L Hct 38.5 L 37.6 L 38.4 L 09/19/16 09/18/16 05:15 04:35 Hgb 14.0 14.1 Hct 40.4 L 40.7 L Assessment and Plan (1) Wound dehiscence, surgical Status: Acute Priority: High Comment: September 27, 2016: Patient seen and evaluated at bedside today dressing is changed. The incision is well coapted with mild eschar at the distal aspect. He has no major issues. He did not want to see the partially empty dictated foot this morning. He understands that he is likely be transferred to the long-term rehabilitation facility today. He understands that he is to remain completely nonweightbearing to the foot at all times. He does admit to having to walk on the foot on occasion but tries best to stay off of it. It was reiterated that he absolutely needs to stay off it all times. Qualifiers: Encounter type: subsequent encounter Qualified Code(s): T81.31XD - Disruption of external operation (surgical) wound, not elsewhere classified, subsequent encounter (2) Cellulitis Status: Acute (3) Osteomyelitis Status: Acute Qualifiers: Osteomyelitis type: other chronic Osteomyelitis location: foot Laterality : right Qualified Code(s): M86.671 - Other chronic osteomyelitis, right ankle and foot (4) Cellulitis of left foot Status: Acute (5) Osteomyelitis of ankle or foot Status: Acute
[2016-09-27] MEDS: LACTOBACILLUS 1 CAPSULE PO SCH (09:07)
[2016-09-27] MEDS: VANCOMYCIN 1,000 MG in 0.9 % SODIUM CHLORIDE 250 ML IV SCH (09:07)
[2016-09-27] MEDS ORDERED: MAG HYDROX/AL HYDROX/SIMETH 30 ML ORAL.SUSP PO ONE (09:21)
--- NOTE | 2016-09-27 09:37 | XRay Report ---
CLINICAL INFORMATION: Cough COMPARISON: 09/26/2016 FINDINGS: The heart is normal in size. Mediastinum and pulmonary vessels are unremarkable. There is minor bibasilar atelectasis. Left PICC line tip overlies the SVC azygos junction. IMPRESSION: Mild bibasilar atelectasis Interpreted and Authenticated by: Parish Mora 09/27/16
--- NOTE | 2016-09-27 11:08 | Discharge Summary ---
Medical - DS: Prov Patient information: Note initiated : 09/27/16 at 11:05 am Service Date, if different from initiated Date: [] Patient: Rock Narayan 56 y/o M admitted on 09/17/16 for Recheck of left foot wound. Chief Complaint: [] Date of admission: 09/17/16 19:45 Discharge date: 09/27/16 Primary care physician: Perry Hadley Admitting clinician: Bhavani Martini Consults: 09/17/16 21:25 Consult to Physician [CONS] Routine Comment: recurrent L foot infection Consulting Provider: Jd Flynn Reason For Exam: Physician to Consult 09/18/16 09:03 Consult to Physician [CONS] Routine Comment: Osteomyelitis LEFT FIRST toe, with open wound Consulting Provider: Darci Jacobs Reason For Exam: Physician to Consult 09/25/16 10:20 Consult to Physician [CONS] Routine Comment: Consulting Provider: [facility] Reason For Exam: Physician to Consult Discharging clinician: Duane Bautista Medical - DS: Meds - Discharge Medications Active and Home Medications: Home Medications Ondansetron HCl [Zofran ODT] 4 mg SL Q4-6HP PRN #10 tablet 07/07/16 [Rx Confirmed 09/17/16 Last Taken Unknown] QUEtiapine [SEROquel] 100 mg PO HS 08/19/16 [History Confirmed 09/17/16 Last Taken Unknown] Medical - DS: Hosp Hospital course: Mr. Narayan is a 56 year old man with a history of osteomyelitis of his left foot. He apparently has had difficulty keeping appointments, and has generally been noncompliant with care. He had a surgical procedure with Dr. Jc Nolan, which subsequently became infected. He then had a revision with Dr. Morales, and that wound dehisced. He has followed up for wound care at both [facility] and [facility], and was lost to follow-up. He reports that he has been on antibiotics both oral and IV, intermittently for about 60 days now. The patient developed a left foot infection in November 2015. I believe he was treated as an inpatient at [facility], and underwent a surgical procedure with Dr. Nolan. He says the infection then came back and then he followed up with Dr. Morales, and had another surgery. He says he was then treated for approximately 60 days with IV antibiotics from January to March, and that he did not miss an appointment. At some point he was also followed at our wound care clinic, and says he was discharged from there, even though the wound was still a little bit open. He was told it would close up on its own eventually, but he says it did not. He got very frustrated with the field evidence technician, so he decided to stop seeing them. He has been in and out of the emergency room whenever the foot flares up and starts to drain again. He has been treated with various oral antibiotics, including ciprofloxacin and Bactrim. He believes he had an MRI over at [facility] about 6 weeks ago, that showed ongoing osteomyelitis. His sister was diagnosed with lung cancer not long ago, and he decided to forget about his foot while he tried to help her through her cancer. He has been experiencing fever and chills the last few days, and feeling dizzy. He notes he has had intermittent nausea, vomiting, and diarrhea. The diarrhea tends to wax and wane a bit. He also has a mild cough for the last few days, which is nonproductive. He was seen in our emergency room on September 13, and wound cultures were done. I believe he was referred to orthopedics, but did not make that appointment. He presented back to the emergency room complaining of fever and chills, and extreme frustration with his inability to get his foot healed. He says his sister, who appears to be dying of her cancer, strongly encouraged him to get treatment for his foot, and this is what his family wants as well. he was having acute osteomyelitis and cellulitis and was therefore admitted to the hospital for further management. Acute Osteomyelitis/ Cellutitis: Dr Jacobs was the field evidence technician who primarily managed this condition while inpatient. The patient was initially treated with Vancomycin and Zosyn from 09/17, he did developed diarrhea and his antibiotics was switched from zosyn to impenum which he tolerated well. The patient had an MRI of the left foot done which showed Osteomyelitis, the wound culture is growing pseudomonas which is falk sensitive. but bone culture is pending. Increased intramedullary signal within the mid and distal first metatarsal and the proximal phalanx compatible with osteomyelitis. There is fluid within the first MTP joint which presumably is sympathetic, but could indicate septic arthritis. Moderate cellulitis and plantar fasciitis is seen adjacent to the first and second ray. The patient underwent ampuation of the first Ray on 09/25/16. The patient tolerated the procedure well. In the post procedure period the patient developed burning pain in the epigastric region, radiating upwards as well as chest discomfort and cough. The patients Chest x ray done shows only mild basilar atelectasis, advised to be compliant with incentive spirometery. He was also started on maalox and PPI bid for reflux If his symptoms were to worsen I would advise a short course of prednisone to see if that helps. The patient has chr mental health issues. Bipolar disorder and is on seroquel and and is taking zoloft with good control. The patient also seems to have pain issue, presently on dilaudid 2mg q2 hrs prn , which is keeping his foot post op pain well controlled as well as oral percoset and morphine SR. The chr diarrhea patient has has responded to probiotics and loperamide prn, the patient cdiff was negative. Overall the patient is hemodynamically stable, labs are at baseline. He does have some Reflux disease and post operative cough for which he has been started on PPI therapy. Discharge diagnosis: Osteomyelitis, Cellutlitis. - Time Spent with Patient Total time spent providing and/or coordinating discharge services: Greater than 30 minutes Medical - DS: Exam - Constitutional Vitals: Vital Signs Temp Pulse Pulse Resp BP BP Pulse Ox 09/27/16 07:49 67 24 H 98 09/27/16 07:46 68 16 09/27/16 03:04 97.5 F 62 18 141/68 92 09/26/16 19:06 97.7 F 63 16 175/83 96 09/26/16 16:00 98.0 F 180/91 97 09/26/16 12:00 97.1 F 20 174/79 96 Intake and Output 09/26/16 09/27/16 09/27/16 21:59 05:59 13:59 Intake Total 3350 / 3350 850 / 850 600 / 600 Balance 3350 / 3350 850 / 850 600 / 600 Intake: IV 750 / 750 250 / 250 Primaxin 1,000 mg In 250 / 250 250 / 250 Sodium Chloride 0.9% 250 ml @ 250 mls/hr IV Q8H [facility] Rx#:[id number] Vancomycin 1,000 mg In 500 / 500 Sodium Chloride 0.9% 250 ml @ 250 mls/hr IV Q12H [facility] Rx#:[id number] Oral 2600 / 2600 600 / 600 600 / 600 Other: Meal Lunch Percent of Meal Consumed 25% Feeding Ability Independent # Voids 7 1 1 # Bowel Movements 1 Weight 263 lb 8 oz 263 lb 8 oz Patient Weight 09/28/16 05:59 Weight 263 lb 8 oz Additional comments: Constitutional; Afebrile, cooperative, alert, not in distress. Eyes- No icterus, , No periorbital swelling Ears- Ext ear normal, hearing normal to conversation. Neck- Midline trachea, supple Respiratory system: Air Entry equal on both sides, No crackles or wheezing, no rhonchi. CVS- Rate rhythm regular, S1,S2 heard, no gallop, no rub. Abdomen- Soft nontender abdomen, no organomegaly, no tenderness, no guarding or rigidity, LOCKER ROOM MANAGER- AOOx3, moving all extremities, no gross focal deficit noted. Medical - DS: A/P - Patient/Caregiver Discharge Instructions Activity: as per physical therapy Diet: Regular Diet Additional Instructions: Dressing changes once every 3 days or as needed for drainage/bleeding: Use Adaptic/Xeroform, 4 x 4 gauze, Kerlix, Kyle wrap or Coban. Per Dr Jacobs. Schedule follow up appointment as above with Dr Jacobs. Beto follow up with [facility] PCP after you fill out the paperwork given to you. Call and schedule a follow up appointment once released by [facility]. non weight bearing on the left foot To transfer by ambulance to [facility]. - Follow up Plan Follow up with: Darci Jacobs DPM [Physician] - 10/04/16 (return to [facility] podiatry clinic on 1 week from 09/27/2016 on 10/04/2016. Please call and scheduled this appointment.) Disposition: [facility] LT Prognosis: Fair Rehab Potential: Fair I certify that the patient requires SNF services: No Overall status at discharge: patient is progressing back to baseline Medical - DS: Qual - VTE Deep Vein Thrombosis/Pulmonary Embolism Present on Admission: No
[2016-09-27] MEDS ORDERED: MAG HYDROX/AL HYDROX/SIMETH 30 ML ORAL.SUSP PO PRN (14:30)
[2016-09-27] MEDS ORDERED: PANTOPRAZOLE 40 MG VIAL IV SCH (17:00)
--- NOTE | 2016-09-29 13:37 | Surgical Pathology Report ---
HISTOLOGY SPECIMEN MICROSCOPIC DIAGNOSIS LEFT FOOT, FIRST DIGIT, AMPUTATION: -- GANGRENOUS ULCER WITH ASSOCIATED UNDERLYING ACUTE OSTEOMYELITIS. -- BONE, SKIN AND SOFT TISSUE MARGINS VIABLE. -- ADDITIONAL FRAGMENT OF SKIN VIABLE. (DMT:minna) CLINICAL HISTORY Osteomyelitis. GROSS DESCRIPTION Received in formalin labeled with the patient information, is a toe which has been amputated at approximately mid metatarsal. The nail is present and in intact. Overall measurements of the specimen are 3.5 x 3.0 x 10.3 cm. The plantar surface skin resection margin is 7.2 cm from the bone resection margin and the dorsal skin tapers from the full width of the toe towards the resection margin and in the mid aspect of this skin it is 1.5 cm wide and there is a jackson-norman ulcer which measures 0.6 x 1.6 cm. The ulcer is 1.1 cm from the nearest skin and soft tissue margin. The closest point of the skin resection margin on the dorsal surface to the bone is 2.8 cm. There is an additional thin strip of the dorsal skin which does extend to the resection margin. No other lesions are identified on the specimen. Also within the container is a strip of skin with an apparent linear wound down the center. This fragment measures up to 1.4 x 1.0 x 5.2 cm. The wound down the center of this specimen is 4.5 cm long and extends to one margin of the particular piece of skin. The margin is inked black. Sections submitted: A1 - marrow at resection margin; A2 - dorsal skin at resection margin with margin inked black; A3-A4 - sections through wound and underlying bone, following decalcification; A5 - sections through separate piece of skin in the container. (RAD:sln) Electronically Signed by: Charan Albrecht M.D.
== END 2016-09-27 12:49 | DRG 475 ==
LOC: ED 16:30 → ICU 19:45 → MEDSUR 09-20 06:16
PROVIDERS: ADMIT Internal Medicine; ATTEND Internal Medicine

== ENCOUNTER 2017-01-01 14:57 | Inpatient (IN) ==
[2017-01-01] MEDS ORDERED: 0.9 % SODIUM CHLORIDE 1,000 ML IV SCH (15:15)
[2017-01-01 16:13] LABS: Basophils # (Auto) 0 K/mcL (0.0-0.3); Basophils % (Auto) 0.5 % (0.0-2.0); Eosinophils # (Auto) 0.4 K/mcL (0.0-0.7); Granulocytes % (Auto) 49.2 % (38.0-78.0); Lymphocytes # (Auto) 2.7 K/mcL (1.5-4.8); Lymphocytes % (Auto) 35.8 % (15.5-49.0); Mean Cell Volume 90.9 fL (80.0-100.0); Mean Corpuscular HGB Conc 34.4 g/dL (31.0-36.0); Mean Corpuscular Hemoglobin 31.2 pg (26.0-34.0); Monocytes # (Auto) 0.7 K/mcL (0.1-0.9); Monocytes % (Auto) 9.5 % (1.0-12.0); Platelet Count 253 K/mcL (140-440)
[2017-01-01 16:31] LABS: ALT/SGPT 12 U/l (0-40); Albumin/Globulin Ratio 1.1 (1.0-2.3); Alkaline Phosphatase 116 U/L (39-117); Blood Urea Nitrogen 17 mg/dl (6-20)
[2017-01-01] MEDS ORDERED: HYDROmorphone 2 MG/ML SYRINGE IV SCH (16:45)
[2017-01-01] MEDS ORDERED: VANCOMYCIN PER PHARMACY IV ONE ×2 (17:04→17:52)
[2017-01-01] MEDS ORDERED: cefTRIAXone 1 GM VIAL IV ONE (17:04)
--- NOTE | 2017-01-01 17:06 | Emergency Department Note ---
Wound/Laceration HPI - General Chief Complaint: Wound/Laceration Stated Complaint: Wound left foot Time Seen by Provider: 01/01/17 15:01 Source: patient Mode of arrival: ambulatory Limitations: no limitations - History of Present Illness HPI Narrative: 56-year-old male presents with wound infection to the left foot. States a few weeks ago he had a plate placed in his foot by Dr. Jacobs. States he has been having problems with it. It is swollen, red, and warm to touch. Also has some black areas around the second and the third toe. The great toe to that foot has already been amputated previously. He has been on outpatient oral antibiotics including Keflex most recently and failed treatment. He was sent to the ER by Dr. Jacobs who would like him to have some basic lab work and then admitted for IV antibiotic therapy and debridement in 24-48 hours. Positive chills, unknown fever. Positive nausea, no vomiting or diarrhea. - Related Data Home Medications Medication Instructions Recorded Confirmed QUEtiapine [Seroquel] 100 mg PO HS 08/19/16 01/01/17 Previous Rx's Medication Instructions Recorded Acetaminophen [Tylenol] 650 mg PO Q6HP PRN tablet 09/27/16 Multivit,Ther Iron,Ca,FA & Min 1 tab PO DAILY tablet 09/27/16 [Multivitamin W/Minerals] Ondansetron HCl [Zofran ODT] 4 mg SL Q6HP PRN tablet 09/27/16 Pantoprazole Sodium 40 mg PO DAILY #30 tablet. 09/27/16 Ciprofloxacin HCl [Cipro] 500 mg PO Q12 #14 tab 11/21/16 Allergies Allergy/AdvReac Type Severity Reaction Status Date / Time codeine AdvReac Mild Vomiting Verified 01/01/17 14:59 Review of Systems All systems ED: reviewed and negative except as stated. Past Medical History - Past Medical History PMFSH Narrative: Medical History Wound dehiscence, surgical (Acute) Cellulitis (Acute) Osteomyelitis (Acute) Cellulitis of left foot (Acute) Osteomyelitis of ankle or foot (Acute) Bipolar disorder with depression (Chronic) Encounter for wound re-check (Acute) PAD (peripheral artery disease) (Suspected) Acute diarrhea (Acute) Foot fracture, left (Acute) Fracture of toe (Acute) Foot infection (Acute) Medical history: Reports: other (States long history with wound healing problems from multiple surgeries including his back and his left foot.States he has an infection in the bone of left foot for which he has been receiving IV antibiotic therapy for over 60 days., Chronic left foot wound and wound dehiscence. Osteomyelitis in the left foot. Noncompliant) Psychiatric history: Reports: bipolar Surgical history ED: Reports: orthopedic, other (Left foot great toe amputation , left foot surgery), other (multiple lumbar spine cervical spine surgeries; left knee replacement last year; multiple foot surgeries) - Social History smoking status: Smokeless tobacco Alcohol use: Reports: None (Denies) Drug use: Reports: none (Denies) Physical Exam Limitations: no limitations General appearance: anxious (Tearful and mildly anxious.) Head: atraumatic, normocephalic, normal inspection Eye: Present: normal appearance. Absent: conjunctival injection ENT: mucous membranes moist Neck: Present: normal inspection, trachea midline. Absent: tenderness, lymphadenopathy Chest: Present: normal inspection, symmetric chest wall rise Respiratory: Present: normal lung sounds bilaterally. Absent: respiratory distress, accessory muscle use Cardiovascular: Present: regular rate, normal heart sounds Extremities: Absent: normal inspection (Arrives with dressing in place to left foot. The left foot around the second third and fourth toes with redness. There is also some darkening areas around the base of the second and third toes. It is red and warm to touch. Please see pictures in the chart that were just documented at the editor's office today. The great left toe has been previously amputated. Red and warm to touch.) Neurological: Present: alert, oriented X3. Absent: motor sensory deficit Psychiatric: Present: normal affect, anxious (Mildly) Skin: Present: warm, dry, intact, normal color, erythema (Please see extremity assessment for documentation of left foot). Absent: rash, cyanosis, diaphoresis Course Course Narrative: CBC, CMP, lactic acid are unremarkable. I did speak with Dr. Jacobs who is concerned that the patient has failed outpatient oral antibiotic treatment and also has some issues with compliance. He really feels that this patient needs some inpatient treatment with some IV antibiotic therapy and he would like to take the patient for debridement in 24-48 hours. He did speak with Dr. Bautista who agrees to admit and Dr. Darci Jacobs will consult. Vital Signs Temperature 97.8 F 01/01/17 14:57 Pulse Rate 87 01/01/17 14:57 Respiratory Rate 20 01/01/17 14:57 Blood Pressure 172/136 01/01/17 14:57 Pulse Oximetry (%) 96 01/01/17 14:57 Temperature 97.8 F 01/01/17 14:57 Pulse Rate 87 01/01/17 14:57 Respiratory Rate 20 01/01/17 14:57 Blood Pressure 172/136 01/01/17 14:57 Pulse Oximetry (%) 96 01/01/17 14:57 Wound/Laceration - Lab Data Result diagrams: 01/01/17 15:39 01/01/17 15:39 Lab Results 01/01/17 01/01/17 01/01/17 Range/Units 15:39 15:39 15:39 WBC 7.5 (4.5-11.0) K/mcL RBC 4.60 (4.50-5.90) M/mcL Hgb 14.4 (13.5-16.5) g/dL Hct 41.8 (41.0-55.0) % MCV 90.9 (80.0-100.0) fL MCH 31.2 (26.0-34.0) pg MCHC 34.4 (31.0-36.0) g/dL RDW 15.0 H (11.5-14.5) % Plt Count 253 (140-440) K/mcL MPV 7.5 (7.4-10.4) fL Gran % 49.2 (38.0-78.0) % Lymph % (Auto) 35.8 (15.5-49.0) % Moca % (Auto) 9.5 (1.0-12.0) % Eos % (Auto) 5.0 (0.0-7.0) % Baso % (Auto) 0.5 (0.0-2.0) % Gran # 3.7 (1.8-8.0) K/mcL Lymph # (Auto) 2.7 (1.5-4.8) K/mcL Moca # (Auto) 0.7 (0.1-0.9) K/mcL Eos # (Auto) 0.4 (0.0-0.7) K/mcL Baso # (Auto) 0 (0.0-0.3) K/mcL VBG Lactic Acid 1.3 (0.5-2.2) mmol/L Sodium 139 (133-145) mmol/L Potassium 3.9 (3.3-5.1) mmol/L Chloride 103 (96-108) mmol/L Carbon Dioxide 23 (22-30) mmol/L Anion Gap 13.0 (8-16) BUN 17 (6-20) mg/dl Creatinine 1.0 (0.7-1.2) mg/dl GFR Calculation 83 Glucose 86 (70-105) mg/dL Calcium 9.2 (8.6-10.4) mg/dl Total Bilirubin 0.8 (0.0-1.0) mg/dL AST 17 (0-37) U/l ALT 12 (0-40) U/l Alkaline Phosphatase 116 (39-117) U/L Total Protein 7.7 (5.9-8.4) gm/dL Albumin 4.0 (3.2-5.2) gm/dL Globulin 3.7 (2.2-3.7) gm/dL Albumin/Globulin Ratio 1.1 (1.0-2.3) Disposition Pt seen by TELECASTING ENGINEER/PA only: Yes Clinical Impression: Foot infection Disposition: Xfer As Inpt ([facility]) Condition: Fair Referrals: Darci Jacobs DPM [Physician] -
[2017-01-01] MEDS ORDERED: VANCOMYCIN 1,500 MG in 0.9 % SODIUM CHLORIDE 500 ML IV ONE (17:30)
[2017-01-01] MEDS ORDERED: NALOXONE HCL 0.4 MG/ML VIAL IV PRN (17:52)
[2017-01-01] MEDS ORDERED: MAGNESIUM HYDROXIDE 30 ML ORAL.SUSP PO PRN (17:52)
[2017-01-01] MEDS ORDERED: ONDANSETRON 4 MG/2 ML VIAL IV PRN (17:52)
--- NOTE | 2017-01-01 17:52 | Internal Med History&Physical ---
Medical - H&P: HPI Patient information: Note initiated : 01/01/17 at 5:40 pm Service Date, if different from initiated Date: [] Patient: Rock Narayan 56 y/o M admitted on for Wound left foot. Chief Complaint: [] History of present illness: Mr. Narayan is a 56 year old Male with h/o foot infection presents to the ER today from podiatry clinic for evaluation of left foot infection This is a patient who has been admitted in the past, has been followed by Dr Jacobs and has had recurrent infections in the foot in the past. He notes he injured his foot approximately 4-6 weeks ago, had some surgery done by dr jacobs, the patient then notes 2 weeks ago he has had increased pain redness and swelling in the left foot. He was seen in the podiatry clinic today and was asked to come in for IV antibiotics. The patient seen in the ER admits to having some dizziness and chills, decreased appetite, some stomach upset, h/o diarrhea in the past, and feels diarrhea is c oming back. Feels like his anxiety is coming back He notes his pain is 9/10 and his pain is the biggest concern he has and was the biggest focus. in the past admission his biggest concern was pain, and he was using intravenous pain meds fairly regularly, and citing pain levels above what was noted clinically on his pain wonker culver faces score. Even in the ER today during my evalution, he noted pain as a concern and noted his level to be 9/10, when on the score he would have scored 2-4. All systems: reviewed and no additional remarkable complaints except as stated ( as per hpi) Medical - H&P: PMH Medical history: Medical History Wound dehiscence, surgical (Acute) Cellulitis (Acute) Osteomyelitis (Acute) Cellulitis of left foot (Acute) Osteomyelitis of ankle or foot (Acute) Bipolar disorder with depression (Chronic) Encounter for wound re-check (Acute) PAD (peripheral artery disease) (Suspected) Acute diarrhea (Acute) Foot fracture, left (Acute) Fracture of toe (Acute) Foot infection (Acute) Surgical history: left foot surgery Family history: reviewed and not pertinent Social history: admits tobacco use denies thc, or other drug use. Medical - H&P: Meds Home Medications Medication Instructions Recorded Confirmed Type QUEtiapine [Seroquel] 100 mg PO HS 08/19/16 01/01/17 History Acetaminophen [Tylenol] 650 mg PO Q6HP PRN tablet 09/27/16 01/01/17 Rx Multivit,Ther Iron,Ca,FA & Min 1 tab PO DAILY tablet 09/27/16 01/01/17 Rx [Multivitamin W/Minerals] Ondansetron HCl [Zofran ODT] 4 mg SL Q6HP PRN tablet 09/27/16 01/01/17 Rx Pantoprazole Sodium 40 mg PO DAILY #30 tablet. 09/27/16 01/01/17 Rx Ciprofloxacin HCl [Cipro] 500 mg PO Q12 #14 tab 11/21/16 01/01/17 Rx Allergies Allergy/AdvReac Type Severity Reaction Status Date / Time codeine AdvReac Mild Vomiting Verified 01/01/17 14:59 Medical - H&P: Exam - Constitutional Vitals: Temp Pulse Resp BP Pulse Ox 97.8 F 87 20 172/136 96 01/01/17 14:57 01/01/17 14:57 01/01/17 14:57 01/01/17 14:57 01/01/17 14:57 Exam: GENERAL: The patient is a well-developed, well-nourished in no apparent distress. Is alert and oriented x3. VITAL SIGNS: Reviewed and as noted elsewhere. HEENT: Head is normocephalic and atraumatic. Extraocular muscles are intact. Pupils are equal, round, and reactive to light. Nares appeared normal. Mouth appears any without lesions. Mucous membranes are moist. NECK: Normal to inspection, Supple, No lymphadenopathy or thyromegaly. LUNGS: Air entry equal on both sides, no wheezing, crackles or rhonchi noted. No accessory muscles of respiration HEART: Regular rate and rhythm normal, S1 and S2 heard, no Gallop, S3 or Rub Noted, No Gross murmur heard. ABDOMEN: Soft, nontender, and nondistended. Positive bowel sounds. No hepatosplenomegaly was noted. EXTREMITIES: No cyanosis, clubbing, rash, lesions or edema. (left foot in dressing, pictures from clinic reviewed) NEUROLOGIC: Cranial nerves II through XII are grossly intact. Motor and Sensory System Grossly Intact PSYCHIATRIC: Normal affect, Normal Mood. Appropriate Behavior. SKIN: No ulceration or wounds noted, No jaundice, No rash noted. Medical - H&P: Reslt - Labs CBC & Chem 7: 01/01/17 15:39 01/01/17 15:39 Labs: Short CBC 01/01/17 Range/Units 15:39 WBC 7.5 (4.5-11.0) K/mcL Hgb 14.4 (13.5-16.5) g/dL Hct 41.8 (41.0-55.0) % Plt Count 253 (140-440) K/mcL BMP 01/01/17 15:39 Sodium 139 Potassium 3.9 Chloride 103 Carbon Dioxide 23 BUN 17 Creatinine 1.0 Glucose 86 Calcium 9.2 Liver Function 01/01/17 Range/Units 15:39 Total Bilirubin 0.8 (0.0-1.0) mg/dL AST 17 (0-37) U/l ALT 12 (0-40) U/l Alkaline Phosphatase 116 (39-117) U/L Albumin 4.0 (3.2-5.2) gm/dL Medical - H&P: A/P - Narrative A/P Narrative: A/P Left foot cellutiltis/ Ostemyelitis Bipolar disorder Acute pain Diarrhea Abdominal discomfort Plan Admit as inpatient as patient has failed outpatient antibiotic therapy. Dr Jacobs plans to dbride tomorrow or on Sunday Plan to start on vancomycin , cefepime and flagyl. In the past has had pseudomonas which has been sensitive for cefepime. IV toradol 30mg q6 , IV tylenol 1g q6, will use them as scheduled drug to help deal with the pain. Oxycodone 5-10 mg oral for now, will increase if needed. Will try and avoid IV narcotic pain meds given his history and clinically does not appear to be in that level of pain as he states. I am suspicious of pain seeking behavior. IV ativan prn for anxiety resume home meds for bipolar disorder (quetiapine) dvt enoxaparin Regular diet
[2017-01-01] MEDS ORDERED: VANCOMYCIN PER PHARMACY IV SCH (18:00)
[2017-01-01] MEDS: KETOROLAC 30 MG/ML VIAL IV SCH ×2 (18:03→23:42)
[2017-01-01] MEDS: LORazepam 2 MG/ML VIAL IV PRN ×2 (18:04→22:05)
[2017-01-01] MEDS ORDERED: cloNIDine HCL 0.1 MG TABLET PO PRN (18:08)
[2017-01-01] MEDS: metroNIDAZOLE 500 MG/100 ML BAG IV SCH ×2 (19:39→23:43)
[2017-01-01] MEDS: oxyCODONE HCL 5 MG TABLET PO PRN ×2 (19:43→22:06)
[2017-01-01 20:34] LABS: Appearance,Urine CLEAR; Bacteria,Urine 0 /hpf (0); Bilirubin,Urine NEG (NEG); Color,Urine YELLOW; Glucose,Urine (UA) NEGATIVE (NEG); Leukocyte Esterase,Urine NEG /uL (NEG); Mucus,Urine MOD /hpf (0); Nitrate,Urine NEG (NEG); Protein,Urine 30 mg/dL (NEG); Specific Gravity,Urine 1.024 (1.000-1.035); Urine Blood NEG mg/dL (<0.03); Urine Hyaline Cast 9 /lpf (0-2); Urine RBC < 1 /hpf (0-1); Urine Squamous Epithelial Cell 0 /hpf (0-4); Urine WBC 1 /hpf (0-4); Urobilinogen,Urine NEG (NEG)
[2017-01-01] MEDS: ACETAMINOPHEN 1,000 MG/100 ML BOTTLE IV SCH (20:55)
[2017-01-01] MEDS: CEFEPIME 2 GM VIAL IV SCH (20:55)
[2017-01-01] MEDS: QUEtiapine 100 MG TABLET PO SCH (20:55)
[2017-01-01] MEDS: 0.9 % SODIUM CHLORIDE 10 ML SYRINGE IV SCH (23:43)
[2017-01-02] MEDS: ACETAMINOPHEN 1,000 MG/100 ML BOTTLE IV SCH ×5 (01:03→23:48)
[2017-01-02] MEDS: CEFEPIME 2 GM VIAL IV SCH ×4 (01:04→21:44)
[2017-01-02] MEDS: QUEtiapine 100 MG TABLET PO SCH ×2 (01:05→20:19)
[2017-01-02] MEDS: oxyCODONE HCL 5 MG TABLET PO PRN ×6 (02:03→21:45)
[2017-01-02] MEDS: LORazepam 2 MG/ML VIAL IV PRN ×5 (02:03→19:34)
[2017-01-02] MEDS: 0.9 % SODIUM CHLORIDE 10 ML SYRINGE IV SCH ×3 (06:02→21:44)
[2017-01-02] MEDS: metroNIDAZOLE 500 MG/100 ML BAG IV SCH ×3 (06:02→22:09)
[2017-01-02] MEDS: KETOROLAC 30 MG/ML VIAL IV SCH (06:03)
[2017-01-02] MEDS: NON FORMULARY MEDICATION 1 DOSE MISCELL PO SCH ×4 (06:03→20:21)
[2017-01-02 06:04] LABS: ALT/SGPT 11 U/l (0-40); Albumin 3.2 gm/dL (3.2-5.2); Alkaline Phosphatase 97 U/L (39-117); Bilirubin,Direct < 0.2 mg/dL (0.0-0.3); Blood Urea Nitrogen 21 mg/dl (6-20); Gamma Glutamyl Transpeptidase 48 U/L (8-61); Magnesium 1.9 mg/dL (1.6-2.5); Uric Acid 7.2 mg/dL (2.5-8.0)
[2017-01-02 07:00] LABS: Basophils # (Auto) 0 K/mcL (0.0-0.3); Basophils % (Auto) 0.6 % (0.0-2.0); Eosinophils # (Auto) 0.4 K/mcL (0.0-0.7); Eosinophils % (Auto) 8.8 % (0.0-7.0); Lymphocytes % (Auto) 41.4 % (15.5-49.0); Mean Cell Volume 90.9 fL (80.0-100.0); Mean Corpuscular HGB Conc 35.1 g/dL (31.0-36.0); Mean Corpuscular Hemoglobin 31.9 pg (26.0-34.0); Monocytes # (Auto) 0.6 K/mcL (0.1-0.9); Monocytes % (Auto) 13.2 % (1.0-12.0); Platelet Count 209 K/mcL (140-440); RBC 3.99 M/mcL (4.50-5.90); Red Cell Distribution Width 14.9 % (11.5-14.5)
[2017-01-02] MEDS: MULTIVIT,THER IRON,CA,FA & MIN 1 TABLET PO SCH (09:12)
[2017-01-02] MEDS: PANTOPRAZOLE 40 MG TABLET PO SCH (09:12)
[2017-01-02] MEDS: VANCOMYCIN 1,500 MG in 0.9 % SODIUM CHLORIDE 500 ML IV SCH ×2 (09:15→20:20)
[2017-01-02] MEDS: ENOXAPARIN 40 MG/0.4 ML SYRINGE SQ SCH (09:15)
[2017-01-02] MEDS: 0.9 % SODIUM CHLORIDE 1,000 ML IV SCH ×4 (09:15→23:46)
--- NOTE | 2017-01-02 09:25 | Orthopedic Consult Note ---
History of Present Illness - HPI Patient information: Note initiated : 01/02/17 at 9:18 am Service Date, if different from initiated Date: [] Patient: Rock Narayan 56 y/o M admitted on 01/01/17 for Wound left foot. 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 He says it's a constant throbbing pain which is not improved by anything except for narcotic pain medicine. He says the pain is 9 out of 10 with 10 being the worst. This has been progressing during last couple weeks. He says it has not changed since the onset of pain. He has been generally nonweightbearing but has had issues with walking on a cast and has had friction between the cast and his foot is as become swollen. Patient is not made much effort to improve the problem other than seeking pain medicine and elevation as well as instructed. He also complains of some diarrhea and nausea which is loosely correlated with the onset of pain. Review of Systems Constitutional: as per HPI Nose, mouth and throat: no as per HPI, no epistaxis, no facial pain, no halitosis, no headache(s), no hoarseness, no lip swelling, no mouth lesions, no abnormal hearing, no mouth pain, no nasal congestion, no nasal discharge, no nasal obstruction, no nasal trauma, no neck mass, no neck pain, no nose pain, no odynophagia, no post-nasal drip, no bleeding gums, no sinus pain, no sinus pressure, no sore throat, no throat swelling, no tongue swelling, no vertigo, no other, no change in voice, no dental pain, no disequilibrium, no dizziness, no dry mouth, no dysphagia Cardiovascular: no as per HPI, no edema, no irregular heart rhythm, no radiating jaw, neck or arm pain, no leg edema, no leg ulcers, no lightheadedness , no orthopnea, no palpatations, no paroxysmal nocturnal dyspnea, no pedal edema , no acrocyanosis, no radiating pain, no rapid heart rate, no slow heart rate, no syncope, no other, no chest pain, no chest pain at rest, no chest pain with activity, no claudication, no diaphoresis, no dyspnea, no dyspnea on exertion Respiratory: no as per HPI, no pain on inspirtation, no chest congestion, no excessive phlegm production, no change in phlegm color, no pain with cough, no other, no cough, no dyspnea, no hemoptysis, no dyspnea on exertion, no wheezing , no snoring, no stridor Gastrointestinal: diarrhea Musculoskeletal: as per HPI Past History Past medical history: back pain surgical intervention and degeneration Hypertension Arthritis general Fractures Left foot, Left face, Right Hand Past surgical history: Back Surgery multiple to lumbar and cervical x10 Knee replacement Left Knee x14 Right x1 Foot Surgery x6 with Left 1st ray amputation 09/25/16 ORIF left 2nd Past family history: Cancer Mother: Stomach, Father: Lung Heart Disease Father: MIx3 Past social history: Never smoker - smokeless to 2 cans a week 37 years Medications and Allergies Home Medications Medication Instructions Recorded Confirmed Type Dextroamphetamine/Amphetamine 30 mg PO TID 01/01/17 01/01/17 History [Adderall 30 mg Tablet] HYDROcodone/APAP 10/325MG [[place] 2 tab PO PRN PRN 01/01/17 01/01/17 History 10/325Mg] Allergies Allergy/AdvReac Type Severity Reaction Status Date / Time codeine AdvReac Mild Vomiting Verified 01/01/17 14:59 Physical Examination - Ankle & Foot left Ankle appearance: swelling, erythema Foot swelling: dorsal, toes ROM: dorsiflexion: 30 degrees ROM: plantarflexion: 30 degrees ROM: eversion: 10 degrees ROM: first MTP joint extension: 10 degrees Strength: dorsiflexion: 4/5 Strength: plantarflexion: 4/5 Strength: inversion: 4/5 Strength: eversion: 4/5 Instability: anterior drawer: negative, deltoid ligament injury tests: negative , anterior talofibular ligament injury tests: negative, calcaneofibular ligament injury tests: negative, posterior talofibular injury tests: negative Assessment and Plan (1) Foot infection Status: Acute Priority: High Comment: intravenous antibiotics, superficial wound debridement, evaluation for pain medicine dependency (2) Cellulitis of left foot Status: Acute Priority: High (3) Foot fracture, left Status: Acute (4) Osteomyelitis Status: Acute Qualifiers: Osteomyelitis type: other chronic Osteomyelitis location: foot Laterality : right Qualified Code(s): M86.671 - Other chronic osteomyelitis, right ankle and foot
--- NOTE | 2017-01-02 10:03 | Internal Med Progress Note ---
Medical - PN: Subj Patient information: Note initiated : 01/02/17 at 10:00 am Service Date, if different from initiated Date: [] Patient: Rock Narayan a 56 y/o M admitted on 01/01/17 for Wound left foot. Chief Complaint: [] Interval history: Mr. Narayan is a 56 year old Male with h/o foot infection presents to the ER today from podiatry clinic for evaluation of left foot infection This is a patient who has been admitted in the past, has been followed by Dr Jacobs and has had recurrent infections in the foot in the past. He notes he injured his foot approximately 4-6 weeks ago, had some surgery done by dr jacobs, the patient then notes 2 weeks ago he has had increased pain redness and swelling in the left foot. He was seen in the podiatry clinic today and was asked to come in for IV antibiotics. The patient seen in the ER admits to having some dizziness and chills, decreased appetite, some stomach upset, h/o diarrhea in the past, and feels diarrhea is c oming back. Feels like his anxiety is coming back He notes his pain is 9/10 and his pain is the biggest concern he has and was the biggest focus. in the past admission his biggest concern was pain, and he was using intravenous pain meds fairly regularly, and citing pain levels above what was noted clinically on his pain wonker culver faces score. Even in the ER today during my evalution, he noted pain as a concern and noted his level to be 9/10, when on the score he would have scored 2-4. Jan 02 patient seen examined, no acute overnigh issues, he notes he is in pain and did not sleep well The patient clinically does not appear to be in pain, he rates his pain st ill very high, but using objective socres he is no where near those pain scores. he has refused tylenol IV and wants IV dilaudid for his pain, like he used to get in the past. I feel there is some component of opiate dependency, drug seeking behaviour here , will avoid IV pain meds and use orals double the dose of oxycodone to 10-20mg q4 hrs, Labs show slight worsening of creat, hold off on toradol and start on IV fluids Await Dr Jacobs decision on further treatment plan. hold off on the picc if the patient needs amputation as in that case he will just need oral antibiotics. If plan is to keep treating this infection with antibiotics and if he has osteomyelitis, he may need picc and residential antibiotics. Pertinent ROS: Denies headache, dizziness Denies chest pain, palpitations Denies cough or shortness of breath Denies abdominal pain, nausea or vomiting. - Constitutional Vitals: Vital Signs Temp Pulse Resp BP Pulse Ox 97.1 F 64 22 156/79 95 01/02/17 07:40 01/02/17 03:02 01/02/17 07:40 01/02/17 07:40 01/02/17 07:40 Period Temp Pulse Resp BP Sys/Torrez Pulse Ox Last 24 Hr 97.1 F-98.4 F 64-87 20-26 128-172/71-136 95-100 Intake and Output 01/01/17 01/02/17 01/02/17 21:59 05:59 13:59 Intake Total 1004 / 1004 1000 / 1000 Output Total 125 / 125 Balance 879 / 879 1000 / 1000 Weight 262 lb 8 oz Intake & Output: Intake & Output 01/01/17 01/02/17 01/02/17 21:59 05:59 13:59 Intake Total 1004 / 1004 1000 / 1000 Output Total 125 / 125 Balance 879 / 879 1000 / 1000 Weight 262 lb 8 oz Intake: IV 413 / 413 100 / 100 Sodium Chloride 0.9% 1,000 ml @ 213 / 213 125 mls/hr IV .Q8H [facility] Rx#: [id number] Oral 591 / 591 900 / 900 Output: Void Amount 125 / 125 Other: Meal [place], milk Percent of Meal Consumed 100% Feeding Ability Independent Exam: Constitutional; Afebrile, cooperative, alert, not in distress. Eyes- No icterus, , No periorbital swelling Ears- Ext ear normal, hearing normal to conversation. Neck- Midline trachea, supple Respiratory system: Air Entry equal on both sides, No crackles or wheezing, no rhonchi. CVS- Rate rhythm regular, S1,S2 heard, no gallop, no rub. 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 left leg in dressing. Medical - PN: Obj Da - Labs CBC & Chem 7: 01/02/17 06:30 01/02/17 04:20 Labs: Abnormal Lab Results 01/02/17 01/02/17 01/02/17 06:30 04:20 04:20 RBC 3.99 L Hgb 12.8 L Hct 36.3 L RDW 14.9 H Gran % 36.0 L [place] % (Auto) 13.2 H Eos % (Auto) 8.8 H Gran # 1.7 L Carbon Dioxide 21 L BUN 21 H Creatinine 1.3 H Glucose 131 H Calcium 8.5 L C-Reactive Protein 1.6 H Triglycerides 197 H Urine Protein Hyaline Casts 01/01/17 01/01/17 19:45 15:39 RBC Hgb Hct RDW 15.0 H Gran % [place] % (Auto) Eos % (Auto) Gran # Carbon Dioxide BUN Creatinine Glucose Calcium C-Reactive Protein Triglycerides Urine Protein 30 A Hyaline Casts 9 H Meds: Medications Cefepime HCl (Maxipime) 2 gm IV Q8H [facility] Last Admin: 01/02/17 06:02 Dose: 2 gm Clonidine HCl (Catapres) 0.1 mg PO Q4HP PRN PRN Reason: Hypertension Enoxaparin Sodium (Lovenox) 40 mg SQ DAILY [facility] Last Admin: 01/02/17 09:15 Dose: 40 mg Vancomycin HCl 1,500 mg/ (Sodium Chloride) 500 mls @ 333.3 mls/hr IV Q12H [facility] Last Admin: 01/02/17 09:15 Dose: 333.3 mls/hr Metronidazole (Flagyl) 500 mg in 100 mls @ 100 mls/hr IV Q8H [facility] Last Admin: 01/02/17 06:02 Dose: 100 mls/hr Acetaminophen (Ofirmev) 1,000 mg in 100 mls @ 200 mls/hr IV Q6H [facility] Last Admin: 01/02/17 06:03 Dose: Not Given Sodium Chloride (Sodium Chloride 0.9%) 1,000 mls @ 125 mls/hr IV .Q8H [facility] Last Admin: 01/02/17 09:21 Dose: 125 mls/hr Iron Carb/Multivit/Supervisor Contact Lens/Folic Acid (Multivitamin W/Minerals) 1 tab PO DAILY [facility] Last Admin: 01/02/17 09:12 Dose: 1 tab Lorazepam (Ativan) 1 mg IV Q4-6HP PRN PRN Reason: ANXIETY/SEDATION Last Admin: 01/02/17 06:02 Dose: 1 mg Magnesium Hydroxide (Milk Of Magnesia) 30 ml PO DAILYP PRN PRN Reason: Constipation Naloxone HCl (Narcan) 0.1 mg IV Q2MIN PRN PRN Reason: Opiate Reversal Non-Formulary Medication () 30 dose PO TID [facility] Last Admin: 01/02/17 06:03 Dose: Not Given Ondansetron HCl (Zofran) 4 mg IV Q6HP PRN PRN Reason: Nausea And Vomiting Oxycodone HCl (Roxicodone) 10 - 20 mg PO Q4HP PRN PRN Reason: pain score 6-10 Last Admin: 01/02/17 09:13 Dose: 10 mg Pantoprazole Sodium (Protonix) 40 mg PO DAILY [facility] Last Admin: 01/02/17 09:12 Dose: 40 mg Quetiapine Fumarate (Seroquel) 100 mg PO HS [facility] Last Admin: 01/02/17 01:05 Dose: Not Given Sodium Chloride (Saline Flush) 10 ml IV Q8 [facility] Last Admin: 01/02/17 06:02 Dose: 10 ml Vancomycin HCl (Vancomycin Per Pharmacy) 1 order IV UD [facility] Medical - PN: A/P - Time Spent With Patient Total time spent is greater than 50% in coordination of care (as documented) at patient's floor/unit and/or counseling patient: - Narrative A/P Narrative: A/P Left foot cellutiltis/ Ostemyelitis Bipolar disorder Acute pain/ pain medication seeking behaviour? Diarrhea Abdominal discomfort Acute kidney insufficiency Plan Dr Jacobs plans to dbride tomorrow or on Sunday, await his opinion start on IVF< hold off on toradol. Plan to start on vancomycin , cefepime and flagyl. In the past has had pseudomonas which has been sensitive for cefepime. pain scores out of propotion to what can be obseved clnically, will avoid IV pain meds. The only difference between Iv and oral pain meds is usually the onset of action, SO I feel that we can provide adequate analagesia in this gentleman with oral meds only. d/c toradol, started on higher dose of oxycoodone 10-20 q4hr prn IV ativan prn for anxiety resume home meds for bipolar disorder (quetiapine) he also take adderal? he was given one dose last night, but we need to verify his dosing and prescription before continuing same. dvt enoxaparin Regular diet Medical - PN: Qual - VTE Deep Vein Thrombosis/Pulmonary Embolism Present on Admission: No
--- NOTE | 2017-01-02 17:07 | XRay Report ---
INDICATION: PICC line placement TECHNIQUE: AP chest x-ray,portable COMPARISON: 09/27/2016 FINDINGS:Left-sided PICC line with tip in the superior vena cava. No acute or focal pulmonary parenchymal infiltrate. No congestive heart failure IMPRESSION: Left-sided PICC line in the superior vena cava Interpreted and Authenticated by: Parish Torres 01/02/17
[2017-01-03] MEDS: oxyCODONE HCL 5 MG TABLET PO PRN ×2 (00:53→03:54)
[2017-01-03] MEDS: ACETAMINOPHEN 1,000 MG/100 ML BOTTLE IV SCH ×4 (05:10→23:53)
[2017-01-03] MEDS: metroNIDAZOLE 500 MG/100 ML BAG IV SCH ×3 (05:10→21:58)
[2017-01-03] MEDS: 0.9 % SODIUM CHLORIDE 10 ML SYRINGE IV SCH ×3 (05:11→21:14)
[2017-01-03] MEDS: CEFEPIME 2 GM VIAL IV SCH ×3 (06:40→21:12)
[2017-01-03 06:48] LABS: Basophils # (Auto) 0 K/mcL (0.0-0.3); Basophils % (Auto) 0.6 % (0.0-2.0); Eosinophils # (Auto) 0.4 K/mcL (0.0-0.7); Granulocytes % (Auto) 43.7 % (38.0-78.0); Lymphocytes # (Auto) 1.9 K/mcL (1.5-4.8); Lymphocytes % (Auto) 37.2 % (15.5-49.0); Mean Cell Volume 92.1 fL (80.0-100.0); Mean Corpuscular HGB Conc 34.9 g/dL (31.0-36.0); Mean Corpuscular Hemoglobin 32.1 pg (26.0-34.0); Monocytes # (Auto) 0.5 K/mcL (0.1-0.9); Monocytes % (Auto) 9.5 % (1.0-12.0); Platelet Count 209 K/mcL (140-440); RBC 3.61 M/mcL (4.50-5.90)
[2017-01-03 07:07] LABS: ALT/SGPT 11 U/l (0-40); Albumin 3.2 gm/dL (3.2-5.2); Albumin/Globulin Ratio 1.1 (1.0-2.3); Alkaline Phosphatase 85 U/L (39-117); Bilirubin,Direct < 0.2 mg/dL (0.0-0.3); Blood Urea Nitrogen 17 mg/dl (6-20); Gamma Glutamyl Transpeptidase 40 U/L (8-61); Magnesium 1.8 mg/dL (1.6-2.5); Uric Acid 6.1 mg/dL (2.5-8.0)
--- NOTE | 2017-01-03 07:36 | Orthopedic Progress Note ---
Subjective Patient information: Note initiated : 01/03/17 at 7:34 am Service Date, if different from initiated Date: [] Patient: Rock Narayan 56 y/o M admitted on 01/01/17 for Wound Lt Foot/Left Foot Cellutiltis, Ostemyelitis. Chief Complaint: [left foot pain] Principal diagnosis: left foot cellulitis Objective Vital signs: Vital Signs Temp Pulse Resp BP Pulse Ox 01/03/17 06:53 96.7 F L 22 125/73 95 01/03/17 04:00 97.5 F 72 22 147/88 94 01/02/17 23:55 97.4 F 76 22 151/89 93 01/02/17 21:50 164/90 01/02/17 20:05 164/96 01/02/17 19:12 97.8 F 75 22 158/97 94 01/02/17 16:00 97.2 F 22 140/88 95 01/02/17 12:00 97.3 F 22 147/78 95 01/02/17 07:40 97.1 F 22 156/79 95 Intake and Output 01/02/17 01/03/17 01/03/17 21:59 05:59 13:59 Intake Total 2450 / 2450 1327 / 1327 Output Total 425 / 425 1900 / 1900 Balance 2024 -573 / -573 Intake: IV 1200 / 1200 200 / 200 Sodium Chloride 0.9% 1,000 ml @ 1000 / 1000 125 mls/hr IV .Q8H [facility] Rx#: [id number] Oral 1250 / 1250 1127 / 1127 Output: Void Amount 425 / 425 1900 / 1900 Other: Meal [place], jello, milk(2) 2 ice creams, 2 pkg oleksandr crackers Percent of Meal Consumed 100% 100% Feeding Ability Independent Independent # Voids 1 Weight 265 lb 8 oz Intake & Output: Intake & Output 01/02/17 01/03/17 01/03/17 21:59 05:59 13:59 Intake Total 2450 / 2450 1327 / 1327 Output Total 425 / 425 1900 / 1900 Balance 2024 -573 / -573 Weight 265 lb 8 oz Intake: IV 1200 / 1200 200 / 200 Sodium Chloride 0.9% 1,000 ml @ 1000 / 1000 125 mls/hr IV .Q8H [facility] Rx#: [id number] Oral 1250 / 1250 1127 / 1127 Output: Void Amount 425 / 425 1900 / 1900 Other: Meal [place], jello, milk(2) 2 ice creams, 2 pkg oleksandr crackers Percent of Meal Consumed 100% 100% Feeding Ability Independent Independent # Voids 1 Additional Comments: HEART Inspection: No cardiac heaves or lifts. Symmetrical expansion with respiration, no other wall motions. Palpation: No thrills appreciated. Point of maximal impulse (PMI) (apical impulse) noted at midclavicular line, in fifth intercostal space. Auscultation: Normal S1 and S2, with regular rate and rhythm. S2 > S1 at the base, S1 > S2 at apex. No splitting of the heart sounds heard. No murmur. No S3 or S4, no friction rub. LUNGS Lungs are clear to auscultation and percussion bilaterally No crackles heard in the lung bases bilaterally - Labs CBC & BMP: 01/03/17 04:40 01/03/17 04:00 Labs: Orthopedic Labs 01/03/17 05:20 PT 14.0 INR 1.1 01/03/17 01/02/17 01/02/17 04:40 06:30 04:20 Hgb 11.6 L 12.8 L TNP Hct 33.2 L 36.3 L TNP 01/01/17 15:39 Hgb 14.4 Hct 41.8 Assessment and Plan (1) Foot infection Status: Acute Priority: High Comment: intravenous antibiotics, superficial wound debridement, evaluation for pain medicine dependency (2) Cellulitis of left foot Status: Acute Priority: High (3) Foot fracture, left Status: Acute (4) Osteomyelitis Status: Acute Qualifiers: Osteomyelitis type: other chronic Osteomyelitis location: foot Laterality : right Qualified Code(s): M86.671 - Other chronic osteomyelitis, right ankle and foot Altered Mental Status HPI - General Source: patient Mode of arrival: ambulatory Limitations: no limitations - Related Data Home Medications Medication Instructions Recorded Confirmed QUEtiapine [Seroquel] 100 mg PO HS 08/19/16 01/01/17 Dextroamphetamine/Amphetamine 30 mg PO TID 01/01/17 01/01/17 [Adderall 30 mg Tablet] HYDROcodone/APAP 10/325MG [[place] 2 tab PO PRN PRN 01/01/17 01/01/17 10/325Mg] Previous Rx's Medication Instructions Recorded Acetaminophen [Tylenol] 650 mg PO Q6HP PRN tablet 09/27/16 Multivit,Ther Iron,Ca,FA & Min 1 tab PO DAILY tablet 09/27/16 [Multivitamin W/Minerals] Ondansetron HCl [Zofran ODT] 4 mg SL Q6HP PRN tablet 09/27/16 Pantoprazole Sodium 40 mg PO DAILY #30 tablet. 09/27/16 Ciprofloxacin HCl [Cipro] 500 mg PO Q12 #14 tab 11/21/16 Allergies Allergy/AdvReac Type Severity Reaction Status Date / Time codeine AdvReac Mild Vomiting Verified 01/01/17 14:59
--- NOTE | 2017-01-03 08:14 | Brief Operative Note ---
Date of procedure: 01/03/17 Pre-op diagnosis: Cellulitis left foot Post-op diagnosis: same Procedure: 1. Incision and drainage left foot 2. Debridement left foot Grafts/Implants: No Anesthesia: GLMA Complications: none Surgeon: Darci Jacobs Estimated blood loss (cc): 15 Specimens Removed/Pathology: other (culture and soft tissue left foot) Condition: stable Disposition: PACU
[2017-01-03 08:40] LABS: Erythrocyte Sedimentation Rate 18 mm/hr (0-15)
[2017-01-03] MEDS ORDERED: LIDOCAINE HCL/PF 100 MG/5 ML SYRINGE IV ONE (08:45)
[2017-01-03] MEDS ORDERED: ONDANSETRON 4 MG/2 ML VIAL IV ONE (08:45)
[2017-01-03] MEDS ORDERED: PROPOFOL 200 MG/20 ML VIAL IV ONE (08:45)
[2017-01-03] MEDS ORDERED: KETAMINE 100 MG/ML ML IV ONE (08:45)
[2017-01-03] MEDS ORDERED: MIDAZOLAM 2 MG/2 ML VIAL IV ONE (08:45)
[2017-01-03] MEDS ORDERED: fentaNYL 100 MCG/2 ML VIAL IV ONE (08:45)
[2017-01-03] MEDS ORDERED: GLYCOPYRROLATE 0.2 MG/ML VIAL IV ONE (08:45)
[2017-01-03] MEDS ORDERED: BUPIVACAINE PF 0.5% 30 ML VIAL IJ ONE (08:55)
[2017-01-03] MEDS ORDERED: ONDANSETRON 4 MG/2 ML VIAL IV PRN (09:04)
[2017-01-03] MEDS ORDERED: MEPERIDINE 25 MG/ML SYRINGE IV PRN (09:04)
[2017-01-03] MEDS ORDERED: IPRATROPIUM/ALBUTEROL 3 ML AMPUL.NEB NEB PRN (09:04)
[2017-01-03] MEDS ORDERED: METHOCARBAMOL 1,000 MG/10 ML VIAL IV PRN (09:04)
[2017-01-03] MEDS ORDERED: LACTATED RINGERS 1,000 ML IV SCH (09:15)
[2017-01-03] MEDS: fentaNYL 100 MCG/2 ML VIAL IV PRN ×4 (09:15→09:32)
[2017-01-03] MEDS ORDERED: FLU VACC QS2017-18 36MOS UP/PF 60 MCG/0.5 ML SYRINGE IM ONE (10:00)
--- NOTE | 2017-01-03 10:34 | Operative Note ---
DATE OF OPERATION: 01/03/2017 PREOPERATIVE DIAGNOSIS: Cellulitis left foot. POSTOPERATIVE DIAGNOSIS: Cellulitis left foot. PROCEDURES: 1. Incision and drainage left foot. 2. Debridement left foot. IMPLANTS: None. ANESTHESIA: GLMA. COMPLICATIONS: None. ESTIMATED BLOOD LOSS: 15 mL SPECIMENS: Culture soft tissue, left foot. CONDITION: Stable. DISPOSITION: PACU. HEMOSTASIS: None. PROCEDURE IN DETAIL: The patient was brought to the operating room and placed on the operating table in supine position. The left lower extremity was scrubbed, prepped and draped in the usual aseptic manner. The foot was noted to be substantially erythematous and edematous. GLMA was initiated, a total of 10 mL 0.5% Marcaine plain was infiltrated to the second metatarsal region where he was noted to be most affected. 1. Incision and drainage left foot is opted due to a change in physical status of the foot, to perform incision and drainage rather than a superficial debridement only. This is done with #15 blade, a small incision through an opening in the proximal aspect of the second metatarsal incision which was placed where the open reduction and internal fixation was performed. Some superficial purulent drainage was expressed from the area. Copious amount of sterile saline was used via pulse lavage, 3 liters total was utilized. There was mild exploration performed with a hemostat to remove any other pockets of infection. 2. Debridement left foot. There is substantial necrotic and callus soft tissue and dorsal aspect left foot which was excised. The postoperative debridement measurements were approximately 2 x 4 cm total debridement. There were two cultures taken from the dorsal wound sent for Gram stain, anaerobic and aerobic. The patient tolerated the procedure and anesthesia well. Postoperative dressings were applied consisting of 4 x 4 gauze, Kerlix, and Kyle wrap. The patient was transferred to postoperative care unit and transferred back to the floor. Instructions to remain nonweightbearing and will be followed up on the floor and to continue intravenous antibiotic therapy until specimen driven antibiotics can be initiated. [id number] Job ID: [id number] Doc ID: [id number] Darci Jacobs DPM
[2017-01-03] MEDS: ENOXAPARIN 40 MG/0.4 ML SYRINGE SQ SCH (11:54)
[2017-01-03] MEDS: MULTIVIT,THER IRON,CA,FA & MIN 1 TABLET PO SCH (11:54)
[2017-01-03] MEDS: PANTOPRAZOLE 40 MG TABLET PO SCH (11:54)
[2017-01-03] MEDS: VANCOMYCIN 1,500 MG in 0.9 % SODIUM CHLORIDE 500 ML IV SCH ×2 (12:01→21:14)
[2017-01-03] MEDS: NON FORMULARY MEDICATION 1 DOSE MISCELL PO SCH ×3 (12:02→21:03)
[2017-01-03] MEDS: HYDROcodone/APAP 10/325MG TABLET PO PRN ×3 (13:28→21:58)
[2017-01-03] MEDS: LORazepam 2 MG/ML VIAL IV PRN ×2 (14:35→21:13)
[2017-01-03] MEDS: 0.9 % SODIUM CHLORIDE 1,000 ML IV SCH ×3 (14:35→22:35)
--- NOTE | 2017-01-03 17:39 | Internal Med Progress Note ---
Medical - PN: Subj Patient information: Note initiated : 01/03/17 at 5:36 pm Service Date, if different from initiated Date: [] Patient: Rock Narayan 56 y/o M admitted on 01/01/17 for Wound Lt Foot/Left Foot Cellutiltis, Ostemyelitis. Chief Complaint: [] Interval history: Mr. aNrayan is a 56 year old Male with h/o foot infection presents to the ER today from podiatry clinic for evaluation of left foot infection This is a patient who has been admitted in the past, has been followed by Dr Jacobs and has had recurrent infections in the foot in the past. He notes he injured his foot approximately 4-6 weeks ago, had some surgery done by dr jacobs, the patient then notes 2 weeks ago he has had increased pain redness and swelling in the left foot. He was seen in the podiatry clinic today and was asked to come in for IV antibiotics. The patient seen in the ER admits to having some dizziness and chills, decreased appetite, some stomach upset, h/o diarrhea in the past, and feels diarrhea is c oming back. Feels like his anxiety is coming back He notes his pain is 9/10 and his pain is the biggest concern he has and was the biggest focus. in the past admission his biggest concern was pain, and he was using intravenous pain meds fairly regularly, and citing pain levels above what was noted clinically on his pain wonker culver faces score. Even in the ER today during my evalution, he noted pain as a concern and noted his level to be 9/10, when on the score he would have scored 2-4. Jan 02 patient seen examined, no acute overnigh issues, he notes he is in pain and did not sleep well The patient clinically does not appear to be in pain, he rates his pain st ill very high, but using objective socres he is no where near those pain scores. he has refused tylenol IV and wants IV dilaudid for his pain, like he used to get in the past. I feel there is some component of opiate dependency, drug seeking behaviour here , will avoid IV pain meds and use orals double the dose of oxycodone to 10-20mg q4 hrs, Labs show slight worsening of creat, hold off on toradol and start on IV fluids Await Dr Jacobs decision on further treatment plan. hold off on the picc if the patient needs amputation as in that case he will just need oral antibiotics. If plan is to keep treating this infection with antibiotics and if he has osteomyelitis, he may need picc and alf antibiotics. January 03 PICC was placed yesterday. Patient states that pain is still uncontrolled . Nursing reports that he has been sleeping comfortably and does not show outward signs of physical distress. He states that increasing the oxycodone has not helped him at all and he has better results with hydrocodone with a lot of her breakthrough. We discussed using only oral meds and he is willing to do hydrocodone with oral Dilaudid for breakthrough. When he was last on my service , we trialed MS Contin, which was not helpful. Pertinent ROS: no fever or cp - Constitutional Vitals: Vital Signs Temp Pulse Resp BP Pulse Ox 96.7 F L 70 20 123/70 94 01/03/17 16:00 01/03/17 09:39 01/03/17 11:28 01/03/17 16:00 01/03/17 16:00 Period Temp Pulse Resp BP Sys/Torrez Pulse Ox Last 24 Hr 96.7 F-97.8 F 66-82 - 123-176/70-97 90-96 Intake and Output 01/03/17 01/03/17 01/03/17 05:59 13:59 21:59 Intake Total 1427 / 1427 1500 / 1500 788 / 788 Output Total 1900 / 1900 405 / 405 400 / 400 Balance -473 / -473 1095 / 1095 388 / 388 General: NAD. HEENT: Normocephalic atraumatic. PERRLA. Sclerae anicteric CV: Regular rate and rhythm. No murmurs rubs or gallops. Respiratory: Lungs are clear auscultation bilaterally. Abdomen: Soft, nondistended, nontender. Positive bowel tones. Extremities: No clubbing, cyanosis or edema. Left foot is seen postoperatively dressed in bandage. Bandage is dry. Neuro: Alert and oriented 3. No focal deficits. Intake & Output: Intake & Output 01/03/17 01/03/17 01/03/17 05:59 13:59 21:59 Intake Total 1427 / 1427 1500 / 1500 788 / 788 Output Total 1900 / 1900 405 / 405 400 / 400 Balance -473 / -473 1095 / 1095 388 / 388 Intake: IV 300 / 300 1500 / 1500 308 / 308 Sodium Chloride 0.9% 1,000 ml @ 1000 / 1000 308 / 308 125 mls/hr IV .Q8H [facility] Rx#: [id number] Oral 1127 / 1127 480 / 480 Output: Void Amount 1900 / 1900 400 / 400 400 / 400 Estimated Blood Loss 5 / 5 Other: Meal 2 ice creams, 2 pkg oleksandr crackers Breakfast Lunch Percent of Meal Consumed 100% 100% 100% Feeding Ability Independent Independent # Voids 1 1 Medical - PN: Obj Da - Labs CBC & Chem 7: 01/03/17 04:40 01/03/17 04:00 Labs: Abnormal Lab Results 01/03/17 01/03/17 01/02/17 04:40 04:00 06:30 RBC 3.61 L 3.99 L Hgb 11.6 L 12.8 L Hct 33.2 L 36.3 L RDW 15.0 H 14.9 H Gran % 36.0 L [place] % (Auto) 13.2 H Eos % (Auto) 9.0 H 8.8 H Gran # 1.7 L ESR 18 H Chloride 110 H Carbon Dioxide BUN Creatinine Glucose Calcium 8.1 L C-Reactive Protein Triglycerides 202 H Urine Protein Hyaline Casts 01/02/17 01/02/17 01/01/17 04:20 04:20 19:45 RBC Hgb Hct RDW Gran % [place] % (Auto) Eos % (Auto) Gran # ESR Chloride Carbon Dioxide 21 L BUN 21 H Creatinine 1.3 H Glucose 131 H Calcium 8.5 L C-Reactive Protein 1.6 H Triglycerides 197 H Urine Protein 30 A Hyaline Casts 9 H 01/01/17 15:39 RBC Hgb Hct RDW 15.0 H Gran % [place] % (Auto) Eos % (Auto) Gran # ESR Chloride Carbon Dioxide BUN Creatinine Glucose Calcium C-Reactive Protein Triglycerides Urine Protein Hyaline Casts Meds: Medications Hydrocodone Bitart/Acetaminophen ([place] 10/325mg) 2 tab PO Q4HP PRN PRN Reason: PAIN LEVEL 3-6 Last Admin: 01/03/17 13:28 Dose: 2 tab Cefepime HCl (Maxipime) 2 gm IV Q8H [facility] Last Admin: 01/03/17 14:21 Dose: 2 gm Clonidine HCl (Catapres) 0.1 mg PO Q4HP PRN PRN Reason: Hypertension Last Admin: 01/02/17 20:20 Dose: 0.1 mg Enoxaparin Sodium (Lovenox) 40 mg SQ DAILY [facility] Last Admin: 01/03/17 11:54 Dose: 40 mg Heparin Sodium (Porcine) (Heparin Flush) 2 ml IV Q12 [facility] Last Admin: 01/03/17 12:02 Dose: 2 ml Hydromorphone HCl (Dilaudid) 4 mg PO Q4HP PRN PRN Reason: PAIN LEVEL 3-6 Vancomycin HCl 1,500 mg/ (Sodium Chloride) 500 mls @ 333.3 mls/hr IV Q12H [facility] Last Admin: 01/03/17 12:01 Dose: 333.3 mls/hr Metronidazole (Flagyl) 500 mg in 100 mls @ 100 mls/hr IV Q8H [facility] Last Admin: 01/03/17 14:21 Dose: 100 mls/hr Acetaminophen (Ofirmev) 1,000 mg in 100 mls @ 200 mls/hr IV Q6H [facility] Last Admin: 01/03/17 17:02 Dose: 200 mls/hr Sodium Chloride (Sodium Chloride 0.9%) 1,000 mls @ 125 mls/hr IV .Q8H [facility] Last Admin: 01/03/17 17:03 Dose: 125 mls/hr Iron Carb/Multivit/Timber Sizer Operator/Folic Acid (Multivitamin W/Minerals) 1 tab PO DAILY [facility] Last Admin: 01/03/17 11:54 Dose: 1 tab Lorazepam (Ativan) 1 mg IV Q4-6HP PRN PRN Reason: ANXIETY/SEDATION Last Admin: 01/03/17 14:35 Dose: 1 mg Magnesium Hydroxide (Milk Of Magnesia) 30 ml PO DAILYP PRN PRN Reason: Constipation Naloxone HCl (Narcan) 0.1 mg IV Q2MIN PRN PRN Reason: Opiate Reversal Non-Formulary Medication () 30 dose PO TID [facility] Last Admin: 01/03/17 17:02 Dose: Not Given Ondansetron HCl (Zofran) 4 mg IV Q6HP PRN PRN Reason: Nausea And Vomiting Pantoprazole Sodium (Protonix) 40 mg PO DAILY [facility] Last Admin: 01/03/17 11:54 Dose: 40 mg Quetiapine Fumarate (Seroquel) 100 mg PO HS [facility] Last Admin: 01/02/17 20:19 Dose: 100 mg Sodium Chloride (Saline Flush) 10 ml IV Q8 [facility] Last Admin: 01/03/17 17:03 Dose: 10 ml Vancomycin HCl (Vancomycin Per Pharmacy) 1 order IV UD [facility] Medical - PN: A/P - Time Spent With Patient Total time spent is greater than 50% in coordination of care (as documented) at patient's floor/unit and/or counseling patient: 25 - 35 minutes - Narrative A/P Narrative: A/P Left foot cellutiltis/ Osteomyelitis s/p debridement today. Pt reports hardware is still in place GPC bacteremia Bipolar disorder Acute pain/ pain medication seeking behavior? Diarrhea Abdominal discomfort Acute kidney insufficiency Plan Cont vancomycin , cefepime and flagyl. In the past has had pseudomonas which has been sensitive for cefepime. Repeat BC in a few days to ensure clearance of bacteremia. Await intraop cultures. May need echo depending on sensitivities. f/ U esr. Pain is challenging to control from subjective report; no objective e/o pain. Avoiding IV opiates. Oxycodone 10-20 q 3 was ineffective. Will transition to hydrocodone with po Dilaudid for breakthrough. Had creatinine bump with Toradol. Will avoid in future. IV ativan prn for anxiety; transition to po meds soon resume home meds for bipolar disorder (quetiapine) he also takes adderal he was given one dose last night, but we need to verify his dosing and prescription before continuing same. dvt enoxaparin Regular diet Medical - PN: Qual - VTE Deep Vein Thrombosis/Pulmonary Embolism Present on Admission: No
[2017-01-03] MEDS: HYDROmorphone 2 MG TABLET PO PRN ×2 (19:55→23:53)
[2017-01-03] MEDS: QUEtiapine 100 MG TABLET PO SCH (21:13)
[2017-01-04] MEDS: HYDROcodone/APAP 10/325MG TABLET PO PRN ×4 (02:01→17:56)
[2017-01-04] MEDS: HYDROmorphone 2 MG TABLET PO PRN ×3 (04:20→23:05)
[2017-01-04] MEDS: ACETAMINOPHEN 1,000 MG/100 ML BOTTLE IV SCH ×3 (05:22→17:55)
[2017-01-04 05:32] LABS: Basophils # (Auto) 0 K/mcL (0.0-0.3); Basophils % (Auto) 0.6 % (0.0-2.0); Eosinophils # (Auto) 0.5 K/mcL (0.0-0.7); Eosinophils % (Auto) 8.5 % (0.0-7.0); Granulocytes % (Auto) 44.3 % (38.0-78.0); Lymphocytes % (Auto) 37.6 % (15.5-49.0); Mean Corpuscular HGB Conc 34.6 g/dL (31.0-36.0); Mean Corpuscular Hemoglobin 31.8 pg (26.0-34.0); Monocytes # (Auto) 0.5 K/mcL (0.1-0.9); Platelet Count 201 K/mcL (140-440); RBC 3.69 M/mcL (4.50-5.90); Red Cell Distribution Width 14.9 % (11.5-14.5)
[2017-01-04 05:59] LABS: ALT/SGPT 15 U/l (0-40); Albumin 3.4 gm/dL (3.2-5.2); Albumin/Globulin Ratio 1.2 (1.0-2.3); Alkaline Phosphatase 91 U/L (39-117); Bilirubin,Direct < 0.2 mg/dL (0.0-0.3); Blood Urea Nitrogen 12 mg/dl (6-20); Gamma Glutamyl Transpeptidase 47 U/L (8-61); Magnesium 1.9 mg/dL (1.6-2.5); Uric Acid 6.3 mg/dL (2.5-8.0)
[2017-01-04] MEDS: CEFEPIME 2 GM VIAL IV SCH ×3 (06:04→22:45)
[2017-01-04] MEDS: metroNIDAZOLE 500 MG/100 ML BAG IV SCH ×3 (06:04→22:51)
[2017-01-04] MEDS: 0.9 % SODIUM CHLORIDE 10 ML SYRINGE IV SCH ×3 (06:05→20:48)
[2017-01-04] MEDS: PANTOPRAZOLE 40 MG TABLET PO SCH (08:58)
[2017-01-04] MEDS: MULTIVIT,THER IRON,CA,FA & MIN 1 TABLET PO SCH (08:58)
[2017-01-04] MEDS: VANCOMYCIN 1,500 MG in 0.9 % SODIUM CHLORIDE 500 ML IV SCH ×2 (08:59→20:47)
[2017-01-04] MEDS: 0.9 % SODIUM CHLORIDE 1,000 ML IV SCH ×3 (08:59→22:47)
[2017-01-04] MEDS: ENOXAPARIN 40 MG/0.4 ML SYRINGE SQ SCH (08:59)
[2017-01-04] MEDS: NON FORMULARY MEDICATION 1 DOSE MISCELL PO SCH ×2 (09:04→14:57)
[2017-01-04] MEDS: LORazepam 2 MG/ML VIAL IV PRN ×4 (09:04→20:47)
[2017-01-04] MEDS: HYDROmorphone 2 MG/ML SYRINGE IV PRN ×2 (11:00→15:03)
--- NOTE | 2017-01-04 12:06 | Orthopedic Progress Note ---
Subjective Patient information: Note initiated : 01/04/17 at 12:03 pm Service Date, if different from initiated Date: [] Patient: Rock Narayan 56 y/o M admitted on 01/01/17 for Wound Lt Foot/Left Foot Cellutiltis, Ostemyelitis. 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 He was able to sleep fairly well throughout the night and into the morning. No new changes of concern. Objective Vital signs: Vital Signs Temp Pulse Resp BP Pulse Ox 01/04/17 11:55 98.8 F 20 177/75 94 01/04/17 08:00 98.6 F 20 142/82 93 01/04/17 04:00 98.0 F 69 20 154/82 95 01/03/17 23:15 97.9 F 71 20 135/80 95 01/03/17 20:00 97.7 F 78 20 158/87 96 01/03/17 16:00 96.7 F L 123/70 94 Intake and Output 01/03/17 01/04/17 01/04/17 21:59 05:59 13:59 Intake Total 1188 / 1188 2183 / 2183 1600 / 1600 Output Total 400 / 400 1700 / 1700 1600 / 1600 Balance 788 / 788 483 / 483 0 / 0 Intake: IV 508 / 508 1492 / 1492 1600 / 1600 Sodium Chloride 0.9% 1,000 ml @ 308 / 308 692 / 692 1000 / 1000 125 mls/hr IV .Q8H [facility] Rx#: [id number] Vancomycin 1,500 mg In Sodium 500 / 500 500 / 500 Chloride 0.9% 500 ml @ 333.3 mls/hr IV Q12H [facility] Rx#: [id number] Oral 680 / 680 691 / 691 Output: Urine Catheter Amount 700 / 700 Void Amount 400 / 400 1000 / 1000 1600 / 1600 Other: Meal Dinner Percent of Meal Consumed 100% Feeding Ability Independent # Voids 1 # Bowel Movements 1 Weight 265 lb 8 oz Intake & Output: Intake & Output 01/03/17 01/04/17 01/04/17 21:59 05:59 13:59 Intake Total 1188 / 1188 2183 / 2183 1600 / 1600 Output Total 400 / 400 1700 / 1700 1600 / 1600 Balance 788 / 788 483 / 483 0 / 0 Weight 265 lb 8 oz Intake: IV 508 / 508 1492 / 1492 1600 / 1600 Sodium Chloride 0.9% 1,000 ml @ 308 / 308 692 / 692 1000 / 1000 125 mls/hr IV .Q8H [facility] Rx#: [id number] Vancomycin 1,500 mg In Sodium 500 / 500 500 / 500 Chloride 0.9% 500 ml @ 333.3 mls/hr IV Q12H [facility] Rx#: [id number] Oral 680 / 680 691 / 691 Output: Urine Catheter Amount 700 / 700 Void Amount 400 / 400 1000 / 1000 1600 / 1600 Other: Meal Dinner Percent of Meal Consumed 100% Feeding Ability Independent # Voids 1 # Bowel Movements 1 Incision: Yes swollen, Yes inflamed Dressing: Yes intact Weight bearing status: non (to left foot) - Periperhal Pulses Peripheral pulses: 1+: dorsalis pedis (L), dorsalis pedis (R), posterior tibialis (L), posterior tibialis (R) - Labs CBC & BMP: 01/04/17 04:00 01/04/17 04:00 Labs: Orthopedic Labs 01/03/17 05:20 PT 14.0 INR 1.1 01/04/17 01/03/17 01/02/17 04:00 04:40 06:30 Hgb 11.8 L 11.6 L 12.8 L Hct 34.0 L 33.2 L 36.3 L 01/02/17 01/01/17 04:20 15:39 Hgb TNP 14.4 Hct TNP 41.8 Assessment and Plan (1) Foot infection Status: Acute Priority: High Comment: Plan: patient has 6 weeks IV antibiotics to cover pseudomonas. He can do this at a outpatient care facility for a priord of time. He can also have home health administering the antibiotics if it was not on a 3 times a day basis. Patient okay to be discharged prior to final culture results and can be adjusted on an outpatient. Continue oral pain medication and resist using intravenous pain control. (2) Cellulitis of left foot Status: Acute Priority: High (3) Foot fracture, left Status: Acute (4) Osteomyelitis Status: Acute Qualifiers: Osteomyelitis type: other chronic Osteomyelitis location: foot Laterality : right Qualified Code(s): M86.671 - Other chronic osteomyelitis, right ankle and foot
--- NOTE | 2017-01-04 16:21 | Internal Med Progress Note ---
Medical - PN: Subj Patient information: Note initiated : 01/04/17 at 4:18 pm Service Date, if different from initiated Date: [] Patient: Rock Narayan 56 y/o M admitted on 01/01/17 for Wound Lt Foot/Left Foot Cellutiltis, Ostemyelitis. Chief Complaint: [] Interval history: Mr. Narayan is a 56 year old Male with h/o foot infection presents to the ER today from podiatry clinic for evaluation of left foot infection This is a patient who has been admitted in the past, has been followed by Dr Jacobs and has had recurrent infections in the foot in the past. He notes he injured his foot approximately 4-6 weeks ago, had some surgery done by dr jacobs, the patient then notes 2 weeks ago he has had increased pain redness and swelling in the left foot. He was seen in the podiatry clinic today and was asked to come in for IV antibiotics. The patient seen in the ER admits to having some dizziness and chills, decreased appetite, some stomach upset, h/o diarrhea in the past, and feels diarrhea is c oming back. Feels like his anxiety is coming back He notes his pain is 9/10 and his pain is the biggest concern he has and was the biggest focus. in the past admission his biggest concern was pain, and he was using intravenous pain meds fairly regularly, and citing pain levels above what was noted clinically on his pain wonker culver faces score. Even in the ER today during my evalution, he noted pain as a concern and noted his level to be 9/10, when on the score he would have scored 2-4. Jan 02 patient seen examined, no acute overnigh issues, he notes he is in pain and did not sleep well The patient clinically does not appear to be in pain, he rates his pain st ill very high, but using objective socres he is no where near those pain scores. he has refused tylenol IV and wants IV dilaudid for his pain, like he used to get in the past. I feel there is some component of opiate dependency, drug seeking behaviour here , will avoid IV pain meds and use orals double the dose of oxycodone to 10-20mg q4 hrs, Labs show slight worsening of creat, hold off on toradol and start on IV fluids Await Dr Jacobs decision on further treatment plan. hold off on the picc if the patient needs amputation as in that case he will just need oral antibiotics. If plan is to keep treating this infection with antibiotics and if he has osteomyelitis, he may need picc and long-term antibiotics. January 03 PICC was placed yesterday. Patient states that pain is still uncontrolled 10/ 10. Nursing reports that he has been sleeping comfortably and does not show outward signs of physical distress. He states that increasing the oxycodone has not helped him at all and he has better results with hydrocodone with a lot of her breakthrough. We discussed using only oral meds and he is willing to do hydrocodone with oral Dilaudid for breakthrough. When he was last on my service , we trialed MS Contin, which was not helpful. January 04: Continues to complain of 10/10 pain in his foot. Requesting IV Dilaudid. I agreed to a 24-hour trial prior to transitioning to all oral again. Discussed plan with Dr. Jacobs. He is concerned that pt is at high risk of fracture if hardware is removed but agrees it may be difficult to eradicate infection with hardware in place. Plan for 6 weeks of broad IV Abx to include Pseudomonal coverage--and now MRSA with cultures positive for staph aureus. Strongly consider suppressive therapy with doxycycline (for MRSA) +/- quinolone for Pseudomonas coverage while hardware in place. ROS: no fever or cp - Constitutional Vitals: Vital Signs Temp Pulse Resp BP Pulse Ox 98.8 F 69 20 177/75 94 01/04/17 11:55 01/04/17 04:00 01/04/17 11:55 01/04/17 11:55 01/04/17 11:55 Period Temp Pulse Resp BP Sys/Torrez Pulse Ox Last 24 Hr 97.7 F-98.8 F 69-78 20-20 135-177/75-87 93-96 Intake and Output 01/04/17 01/04/17 01/04/17 05:59 13:59 21:59 Intake Total 2183 / 2183 1600 / 1600 100 / 100 Output Total 1700 / 1700 1900 / 1900 300 / 300 Balance 483 / 483 -300 / -300 -200 / -200 Intake & Output: Intake & Output 01/04/17 01/04/17 01/04/17 05:59 13:59 21:59 Intake Total 2183 / 2183 1600 / 1600 100 / 100 Output Total 1700 / 1700 1900 / 1900 300 / 300 Balance 483 / 483 -300 / -300 -200 / -200 Intake: IV 1492 / 1492 1600 / 1600 100 / 100 Sodium Chloride 0.9% 1,000 ml @ 692 / 692 1000 / 1000 125 mls/hr IV .Q8H [facility] Rx#: [id number] Vancomycin 1,500 mg In Sodium 500 / 500 500 / 500 Chloride 0.9% 500 ml @ 333.3 mls/hr IV Q12H [facility] Rx#: [id number] Oral 691 / 691 Output: Urine Catheter Amount 700 / 700 Void Amount 1000 / 1000 1900 / 1900 300 / 300 Other: # Voids 1 # Bowel Movements 1 General: NAD. HEENT: Normocephalic atraumatic. PERRLA. Sclerae anicteric CV: Regular rate and rhythm. No murmurs rubs or gallops. Respiratory: Lungs are clear auscultation bilaterally. Abdomen: Soft, nondistended, nontender. Positive bowel tones. Extremities: No clubbing, cyanosis or edema. Left foot is seen postoperatively dressed in bandage. Bandage is dry. Neuro: Alert and oriented 3. No focal deficits. Medical - PN: Obj Da - Labs CBC & Chem 7: 01/04/17 04:00 01/04/17 04:00 Labs: Abnormal Lab Results 01/04/17 01/04/17 01/03/17 04:00 04:00 04:40 RBC 3.69 L 3.61 L Hgb 11.8 L 11.6 L Hct 34.0 L 33.2 L RDW 14.9 H 15.0 H Gran % [place] % (Auto) Eos % (Auto) 8.5 H 9.0 H Gran # ESR 18 H Chloride Carbon Dioxide 21 L BUN Creatinine Glucose 113 H Calcium 8.2 L C-Reactive Protein Triglycerides 235 H Urine Protein Hyaline Casts 01/03/17 01/02/17 01/02/17 04:00 06:30 04:20 RBC 3.99 L Hgb 12.8 L Hct 36.3 L RDW 14.9 H Gran % 36.[address] [place] % (Auto) 13.2 H Eos % (Auto) 8.8 H Gran # 1.7 L ESR Chloride 110 H Carbon Dioxide BUN Creatinine Glucose Calcium 8.1 L C-Reactive Protein 1.6 H Triglycerides 202 H Urine Protein Hyaline Casts 01/02/17 01/01/17 04:20 19:45 RBC Hgb Hct RDW Gran % [place] % (Auto) Eos % (Auto) Gran # ESR Chloride Carbon Dioxide 21 L BUN 21 H Creatinine 1.3 H Glucose 131 H Calcium 8.5 L C-Reactive Protein Triglycerides 197 H Urine Protein 30 A Hyaline Casts 9 H Meds: Medications Hydrocodone Bitart/Acetaminophen ([place] 10/325mg) 2 tab PO Q4HP PRN PRN Reason: PAIN LEVEL 3-6 Last Admin: 01/04/17 13:16 Dose: 2 tab Cefepime HCl (Maxipime) 2 gm IV Q8H [facility] Last Admin: 01/04/17 14:22 Dose: 2 gm Clonidine HCl (Catapres) 0.1 mg PO Q4HP PRN PRN Reason: Hypertension Last Admin: 01/02/17 20:20 Dose: 0.1 mg Enoxaparin Sodium (Lovenox) 40 mg SQ DAILY [facility] Last Admin: 01/04/17 08:59 Dose: 40 mg Heparin Sodium (Porcine) (Heparin Flush) 2 ml IV Q12 [facility] Last Admin: 01/04/17 08:58 Dose: 2 ml Hydromorphone HCl (Dilaudid) 4 mg PO Q4HP PRN PRN Reason: PAIN LEVEL 3-6 Last Admin: 01/04/17 04:20 Dose: 4 mg Hydromorphone HCl (Dilaudid) 1 mg IV Q4HP PRN PRN Reason: PAIN LEVEL > 6 Stop: 01/06/17 04:00 Last Admin: 01/04/17 15:03 Dose: 1 mg Vancomycin HCl 1,500 mg/ (Sodium Chloride) 500 mls @ 333.3 mls/hr IV Q12H [facility] Last Infusion: 01/04/17 10:49 Dose: Infused Metronidazole (Flagyl) 500 mg in 100 mls @ 100 mls/hr IV Q8H [facility] Last Admin: 01/04/17 14:22 Dose: 100 mls/hr Acetaminophen (Ofirmev) 1,000 mg in 100 mls @ 200 mls/hr IV Q6H [facility] Last Infusion: 01/04/17 14:10 Dose: Infused Sodium Chloride (Sodium Chloride 0.9%) 1,000 mls @ 125 mls/hr IV .Q8H [facility] Last Admin: 01/04/17 14:57 Dose: Not Given Iron Carb/Multivit/Taxicab Coordinator/Folic Acid (Multivitamin W/Minerals) 1 tab PO DAILY [facility] Last Admin: 01/04/17 08:58 Dose: 1 tab Lorazepam (Ativan) 1 mg IV Q4-6HP PRN PRN Reason: ANXIETY/SEDATION Last Admin: 01/04/17 13:16 Dose: 1 mg Magnesium Hydroxide (Milk Of Magnesia) 30 ml PO DAILYP PRN PRN Reason: Constipation Naloxone HCl (Narcan) 0.1 mg IV Q2MIN PRN PRN Reason: Opiate Reversal Ondansetron HCl (Zofran) 4 mg IV Q6HP PRN PRN Reason: Nausea And Vomiting Pantoprazole Sodium (Protonix) 40 mg PO DAILY [facility] Last Admin: 01/04/17 08:58 Dose: 40 mg Quetiapine Fumarate (Seroquel) 100 mg PO HS [facility] Last Admin: 01/03/17 21:13 Dose: 100 mg Sodium Chloride (Saline Flush) 10 ml IV Q8 [facility] Last Admin: 01/04/17 14:22 Dose: 10 ml Vancomycin HCl (Vancomycin Per Pharmacy) 1 order IV UD [facility] Medical - PN: A/P - Time Spent With Patient Total time spent is greater than 50% in coordination of care (as documented) at patient's floor/unit and/or counseling patient: Greater than 35 minutes - Narrative A/P Narrative: A/P Left foot cellutiltis/ Osteomyelitis s/p debridement 01/03. Hardware still in place. Cx +staph aureus. ESR 18 BC +coag neg staph, likely contaminant Bipolar disorder Acute pain/ pain medication seeking behavior? Diarrhea Abdominal discomfort Acute kidney insufficiency, resolved Plan Cont vancomycin, cefepime and flagyl. Discussed with Dr. Jacobs; will plan to treat with 6 weeks of IV Abx (POD#0 through 02/14). Possible DC regimens could include: vancomycin (will need trough 15-20 and physician to manage dosing) or daptomycin for staph aureus (if it turns out to be MRSA). If MSSA, ideally would be on cefazolin (q8H) or nafcillin (q4H). Still would favor Pseudomonal coverage although cx negative thus far. In the past this has been sensitive to Levaquin and could consider Levaquin only, but would miss anaerobes. Ideally would place on Zosyn for Pseudomonal coverage. Recommend probiotic on DC to prevent C diff. Pain is challenging to control from subjective report; no objective e/o pain. . Oxycodone 10-20 q 3 was ineffective. Cont hydrocodone and change to IV Dilaudid for breakthrough x 24 hours; will transition back to po on DC. Had creatinine bump with Toradol. Will avoid in future. IV ativan prn for anxiety; transition to po meds on DC resume home meds for bipolar disorder (quetiapine) dvt enoxaparin Regular diet Code: Full Dispo: To SNF when bed available. Medical - PN: Qual - VTE Deep Vein Thrombosis/Pulmonary Embolism Present on Admission: No
[2017-01-04] MEDS ORDERED: morphine 15 MG TABLET PO PRN (19:33)
[2017-01-04] MEDS: QUEtiapine 100 MG TABLET PO SCH (20:47)
[2017-01-05] MEDS: 0.9 % SODIUM CHLORIDE 10 ML SYRINGE IV SCH ×3 (05:20→22:14)
[2017-01-05] MEDS: metroNIDAZOLE 500 MG/100 ML BAG IV SCH (05:20)
[2017-01-05] MEDS: 0.9 % SODIUM CHLORIDE 1,000 ML IV SCH ×4 (05:23→19:11)
[2017-01-05 05:30] LABS: Basophils # (Auto) 0 K/mcL (0.0-0.3); Basophils % (Auto) 0.3 % (0.0-2.0); Eosinophils # (Auto) 0.3 K/mcL (0.0-0.7); Eosinophils % (Auto) 4.9 % (0.0-7.0); Granulocytes % (Auto) 66.3 % (38.0-78.0); Lymphocytes # (Auto) 1.3 K/mcL (1.5-4.8); Mean Cell Volume 92.3 fL (80.0-100.0); Mean Corpuscular HGB Conc 34.4 g/dL (31.0-36.0); Mean Corpuscular Hemoglobin 31.7 pg (26.0-34.0); Monocytes # (Auto) 0.5 K/mcL (0.1-0.9); Monocytes % (Auto) 7.5 % (1.0-12.0); Platelet Count 216 K/mcL (140-440); RBC 3.73 M/mcL (4.50-5.90)
[2017-01-05 05:44] LABS: Blood Urea Nitrogen 10 mg/dl (6-20)
[2017-01-05] MEDS: CEFEPIME 2 GM VIAL IV SCH (06:31)
[2017-01-05] MEDS: LORazepam 2 MG/ML VIAL IV PRN ×5 (06:43→23:55)
[2017-01-05] MEDS: HYDROmorphone 2 MG/ML SYRINGE IV PRN ×5 (06:44→23:55)
[2017-01-05] MEDS: HYDROmorphone 2 MG TABLET PO PRN ×4 (07:46→20:54)
[2017-01-05] MEDS: ENOXAPARIN 40 MG/0.4 ML SYRINGE SQ SCH (09:16)
[2017-01-05] MEDS: VANCOMYCIN 1,500 MG in 0.9 % SODIUM CHLORIDE 500 ML IV SCH (09:16)
[2017-01-05] MEDS: PANTOPRAZOLE 40 MG TABLET PO SCH (09:16)
[2017-01-05] MEDS: MULTIVIT,THER IRON,CA,FA & MIN 1 TABLET PO SCH (09:16)
[2017-01-05] MEDS: ceFAZolin 1 GM VIAL IV SCH ×2 (12:10→22:14)
--- NOTE | 2017-01-05 12:19 | Orthopedic Progress Note ---
Subjective Patient information: Note initiated : 01/05/17 at 12:16 pm Service Date, if different from initiated Date: [] Patient: Rock Narayan 56 y/o M admitted on 01/01/17 for Wound Lt Foot/Left Foot Cellutiltis, Ostemyelitis. Chief Complaint: [the left foot pain] Principal diagnosis: left foot cellulitis Interval history: pain is not changed. No fever chills nausea vomiting shortness breath diarrhea last 24 hours. Foot remains generally the same as prior. Pertinent ROS: HPI Objective Vital signs: Vital Signs Temp Pulse Resp BP Pulse Ox 01/05/17 11:43 98.8 F 20 163/80 94 01/05/17 06:52 98.4 F 20 170/83 94 01/05/17 04:00 99.2 F H 77 18 161/90 95 01/05/17 00:00 98.1 F 74 16 168/80 97 01/04/17 20:00 98.0 F 72 18 162/82 95 01/04/17 16:00 97.8 F 20 150/81 94 Intake and Output 01/04/17 01/05/17 01/05/17 21:59 05:59 13:59 Intake Total 1800 / 1800 1000 / 1000 1000 / 1000 Output Total 1225 / 1225 1999 / 1999 1400 / 1400 Balance 575 / 575 -1000 / -1000 -400 / -400 Intake: IV 1200 / 1200 600 / 600 1000 / 1000 Sodium Chloride 0.9% 1,000 ml @ 1000 / 1000 1000 / 1000 125 mls/hr IV .Q8H [facility] Rx#: [id number] Vancomycin 1,500 mg In Sodium 500 / 500 Chloride 0.9% 500 ml @ 333.3 mls/hr IV Q12H [facility] Rx#: [id number] Oral 600 / 600 400 / 400 Output: Void Amount 1225 / 1225 1999 / 2000 1400 / 1400 Other: # Voids 3 Weight 270 lb Intake & Output: Intake & Output 01/04/17 01/05/17 01/05/17 21:59 05:59 13:59 Intake Total 1800 / 1800 1000 / 1000 1000 / 1000 Output Total 1225 / 1225 1999 / 1999 1400 / 1400 Balance 575 / 575 -1000 / -1000 -400 / -400 Weight 270 lb Intake: IV 1200 / 1200 600 / 600 1000 / 1000 Sodium Chloride 0.9% 1,000 ml @ 1000 / 1000 1000 / 1000 125 mls/hr IV .Q8H [facility] Rx#: [id number] Vancomycin 1,500 mg In Sodium 500 / 500 Chloride 0.9% 500 ml @ 333.3 mls/hr IV Q12H [facility] Rx#: [id number] Oral 600 / 600 400 / 400 Output: Void Amount 1225 / 1225 2000 / 2000 1400 / 1400 Other: # Voids 3 Incision: Yes healing (improving), Yes red, Yes inflamed Incision clean and dry: Yes Dressing: Yes intact Weight bearing status: non (nonweightbearing left foot) - Periperhal Pulses Peripheral pulses: 1+: dorsalis pedis (L), dorsalis pedis (R), posterior tibialis (L), posterior tibialis (R) - Labs CBC & BMP: 01/05/17 04:00 01/05/17 04:00 Labs: Orthopedic Labs 01/03/17 05:20 PT 14.0 INR 1.1 01/05/17 01/04/17 01/03/17 04:00 04:00 04:40 Hgb 11.8 L 11.8 L 11.6 L Hct 34.4 L 34.0 L 33.2 L 01/02/17 01/02/17 01/01/17 06:30 04:20 15:39 Hgb 12.8 L TNP 14.4 Hct 36.3 L TNP 41.8 Assessment and Plan (1) Foot infection Status: Acute Priority: High Comment: Plan: culture results to swabs both growing Staphylococcus aureus pansensitive. Dressings changed at today's visit without incident. Area is closing on its own. Patient should be ready for discharge see and when there is a plan for outpatient antibiotic therapy and pain control. (2) Cellulitis of left foot Status: Acute Priority: High (3) Foot fracture, left Status: Acute (4) Osteomyelitis Status: Acute Qualifiers: Osteomyelitis type: other chronic Osteomyelitis location: foot Laterality : right Qualified Code(s): M86.671 - Other chronic osteomyelitis, right ankle and foot
--- NOTE | 2017-01-05 13:58 | Internal Med Progress Note ---
Medical - PN: Subj Patient information: Note initiated : 01/05/17 at 1:43 pm Service Date, if different from initiated Date: [] Patient: Rock Narayan 56 y/o M admitted on 01/01/17 for Wound Lt Foot/Left Foot Cellutiltis, Ostemyelitis. Chief Complaint: [] Interval history: Mr. Narayan is a 56 year old Male with h/o foot infection presents to the ER today from podiatry clinic for evaluation of left foot infection This is a patient who has been admitted in the past, has been followed by Dr Jacobs and has had recurrent infections in the foot in the past. He notes he injured his foot approximately 4-6 weeks ago, had some surgery done by dr jacobs, the patient then notes 2 weeks ago he has had increased pain redness and swelling in the left foot. He was seen in the podiatry clinic today and was asked to come in for IV antibiotics. The patient seen in the ER admits to having some dizziness and chills, decreased appetite, some stomach upset, h/o diarrhea in the past, and feels diarrhea is c oming back. Feels like his anxiety is coming back He notes his pain is 9/10 and his pain is the biggest concern he has and was the biggest focus. in the past admission his biggest concern was pain, and he was using intravenous pain meds fairly regularly, and citing pain levels above what was noted clinically on his pain wonker culver faces score. Even in the ER today during my evalution, he noted pain as a concern and noted his level to be 9/10, when on the score he would have scored 2-4. Jan 02 patient seen examined, no acute overnigh issues, he notes he is in pain and did not sleep well The patient clinically does not appear to be in pain, he rates his pain st ill very high, but using objective socres he is no where near those pain scores. he has refused tylenol IV and wants IV dilaudid for his pain, like he used to get in the past. I feel there is some component of opiate dependency, drug seeking behaviour here , will avoid IV pain meds and use orals double the dose of oxycodone to 10-20mg q4 hrs, Labs show slight worsening of creat, hold off on toradol and start on IV fluids Await Dr Jacobs decision on further treatment plan. hold off on the picc if the patient needs amputation as in that case he will just need oral antibiotics. If plan is to keep treating this infection with antibiotics and if he has osteomyelitis, he may need picc and halfway antibiotics. January 03 PICC was placed yesterday. Patient states that pain is still uncontrolled 10/ 10. Nursing reports that he has been sleeping comfortably and does not show outward signs of physical distress. He states that increasing the oxycodone has not helped him at all and he has better results with hydrocodone with a lot of her breakthrough. We discussed using only oral meds and he is willing to do hydrocodone with oral Dilaudid for breakthrough. When he was last on my service , we trialed MS Contin, which was not helpful. January 04: Continues to complain of 10/10 pain in his foot. Requesting IV Dilaudid. I agreed to a 24-hour trial prior to transitioning to all oral again. Discussed plan with Dr. Jacobs. He is concerned that pt is at high risk of fracture if hardware is removed but agrees it may be difficult to eradicate infection with hardware in place. Plan for 6 weeks of broad IV Abx to include Pseudomonal coverage--and now MRSA with cultures positive for staph aureus. Strongly consider suppressive therapy with doxycycline (for MRSA) +/- quinolone for Pseudomonas coverage while hardware in place. Jan 05: Pt inadvertently left on scheduled Tylenol while transitioning to hydrocodone and has received 8gm of Tylenol 01/03 and . Hydrocodone and scheduled Tylenol DC'd and pt placed on po morphine alternating with po Dilaudid. IV Dilaudid continued for breakthrough. Pt was upset last night regarding change of pain medications. Initially threatened to leave AMA but now agreeable to stay. [place] that his foot was more swollen today, but it was evaluated by Dr. Jacobs and appears to be stable. Cx +MSSA and case discussed with ID in [place]. Abx changed to cefazolin. BP elevated last night to 170s and 160s today; pt still very stressed today. ROS: no nausea or cp - Constitutional Vitals: Vital Signs Temp Pulse Resp BP Pulse Ox 98.8 F 77 20 163/80 94 01/05/17 11:43 01/05/17 04:00 01/05/17 11:43 01/05/17 11:43 01/05/17 11:43 Period Temp Pulse Resp BP Sys/Torrez Pulse Ox Last 24 Hr 97.8 F-99.2 F 72-77 16-20 150-170/80-90 94-97 Intake and Output 01/04/17 01/05/17 01/05/17 21:59 05:59 13:59 Intake Total 1800 / 1800 1000 / 1000 1000 / 1000 Output Total 1225 / 1225 1999 / 1999 1400 / 1400 Balance 575 / 575 -1000 / -1000 -400 / -400 Weight 270 lb Intake & Output: Intake & Output 01/04/17 01/05/17 01/05/17 21:59 05:59 13:59 Intake Total 1800 / 1800 1000 / 1000 1000 / 1000 Output Total 1225 / 1225 1999 / 1999 1400 / 1400 Balance 575 / 575 -1000 / -1000 -400 / -400 Weight 270 lb Intake: IV 1200 / 1200 600 / 600 1000 / 1000 Sodium Chloride 0.9% 1,000 ml @ 1000 / 1000 1000 / 1000 125 mls/hr IV .Q8H [facility] Rx#: [id number] Vancomycin 1,500 mg In Sodium 500 / 500 Chloride 0.9% 500 ml @ 333.3 mls/hr IV Q12H [facility] Rx#: [id number] Oral 600 / 600 400 / 400 Output: Void Amount 1225 / 1225 1999 / 1999 1400 / 1400 Other: # Voids 3 Exam: General: NAD. HEENT: Normocephalic atraumatic. PERRLA. Sclerae anicteric CV: Regular rate and rhythm. No murmurs rubs or gallops. Respiratory: Lungs are clear auscultation bilaterally. Abdomen: Soft, nondistended, nontender. Positive bowel tones. Extremities: No clubbing, cyanosis or edema. Left foot is dressed in bandage. Bandage is dry. Neuro: Alert and oriented 3. No focal deficits. Medical - PN: Obj Da - Labs CBC & Chem 7: 01/05/17 04:00 01/05/17 04:00 Labs: Abnormal Lab Results 01/05/17 01/05/17 01/04/17 04:00 04:00 04:00 RBC 3.73 L Hgb 11.8 L Hct 34.4 L RDW 15.0 H Eos % (Auto) Lymph # (Auto) 1.3 L ESR Chloride Carbon Dioxide 21 L 21 L Glucose 113 H 113 H Calcium 8.1 L 8.2 L Triglycerides 235 H 01/04/17 01/03/17 01/03/17 04:00 04:40 04:00 RBC 3.69 L 3.61 L Hgb 11.8 L 11.6 L Hct 34.0 L 33.2 L RDW 14.9 H 15.0 H Eos % (Auto) 8.5 H 9.0 H Lymph # (Auto) ESR 18 H Chloride 110 H Carbon Dioxide Glucose Calcium 8.1 L Triglycerides 202 H Meds: Medications Cefazolin Sodium (Ancef) 1 gm IV Q8H [facility] Last Admin: 01/05/17 12:10 Dose: 1 gm Clonidine HCl (Catapres) 0.1 mg PO Q4HP PRN PRN Reason: Hypertension Last Admin: 01/02/17 20:20 Dose: 0.1 mg Enoxaparin Sodium (Lovenox) 40 mg SQ DAILY [facility] Last Admin: 01/05/17 09:16 Dose: 40 mg Heparin Sodium (Porcine) (Heparin Flush) 2 ml IV Q12 [facility] Last Admin: 01/05/17 09:17 Dose: 2 ml Hydromorphone HCl (Dilaudid) 4 mg PO Q4HP PRN PRN Reason: PAIN LEVEL 3-6 Last Admin: 01/05/17 12:17 Dose: 4 mg Hydromorphone HCl (Dilaudid) 1 mg IV Q4HP PRN PRN Reason: PAIN LEVEL > 6 Stop: 01/06/17 04:00 Last Admin: 01/05/17 10:41 Dose: 1 mg Sodium Chloride (Sodium Chloride 0.9%) 1,000 mls @ 125 mls/hr IV .Q8H [facility] Last Admin: 01/05/17 08:28 Dose: 125 mls/hr Iron Carb/Multivit/[place]/Folic Acid (Multivitamin W/Minerals) 1 tab PO DAILY [facility] Last Admin: 01/05/17 09:16 Dose: 1 tab Lorazepam (Ativan) 1 mg IV Q4-6HP PRN PRN Reason: ANXIETY/SEDATION Last Admin: 01/05/17 10:58 Dose: 1 mg Magnesium Hydroxide (Milk Of Magnesia) 30 ml PO DAILYP PRN PRN Reason: Constipation Morphine Sulfate (Morphine) 15 mg PO Q4HP PRN PRN Reason: PAIN LEVEL 3-6 Naloxone HCl (Narcan) 0.1 mg IV Q2MIN PRN PRN Reason: Opiate Reversal Ondansetron HCl (Zofran) 4 mg IV Q6HP PRN PRN Reason: Nausea And Vomiting Pantoprazole Sodium (Protonix) 40 mg PO DAILY [facility] Last Admin: 01/05/17 09:16 Dose: 40 mg Quetiapine Fumarate (Seroquel) 100 mg PO HS [facility] Last Admin: 01/04/17 20:47 Dose: 100 mg Sodium Chloride (Saline Flush) 10 ml IV Q8 [facility] Last Admin: 01/05/17 05:20 Dose: 10 ml Medical - PN: A/P - Time Spent With Patient Total time spent is greater than 50% in coordination of care (as documented) at patient's floor/unit and/or counseling patient: Greater than 35 minutes (coordinating care regarding discharge) - Narrative A/P Narrative: A/P Left foot cellutiltis/ Osteomyelitis s/p debridement 01/03. Hardware still in place. Cx +MSSA. ESR 18 BC +coag neg staph, likely contaminant Bipolar disorder Acute pain/ pain medication seeking behavior? Diarrhea Abdominal discomfort Acute kidney insufficiency, resolved Plan Change to nafcillin to complete 6 weeks(POD#0 through 02/14). D/W Dr. Jacobs. Still has hardware in place but Dr. Jacobs would like to keep in d/t risk of refracture. Will need weekly CBC, CMP and CRP while on therapy. Recommend probiotic on DC to prevent C diff. Pain is challenging to control from subjective report; no objective e/o pain. . Oxycodone 10-20 q 3 was ineffective. Rec'd too much Tylenol 01/03 and while on scheduled tylenol and changing to hydrocodone. Cont po morphine and Dilaudid ; IV Dilaudid for breakthrough x 24 hours; will transition back to po on DC. Had creatinine bump with Toradol. Will avoid in future. IV ativan prn for anxiety; transition to po meds on DC resume home meds for bipolar disorder (quetiapine) dvt enoxaparin Regular diet Code: Full Dispo: Home with OP infusion CAD pump tomorrow. Dr. Jacobs will follow for orders. Will arrange wound check with Dr. Jacobs next week for wound check. Medical - PN: Qual - VTE Deep Vein Thrombosis/Pulmonary Embolism Present on Admission: No
[2017-01-05] MEDS: QUEtiapine 100 MG TABLET PO SCH (20:56)
[2017-01-06] MEDS: 0.9 % SODIUM CHLORIDE 1,000 ML IV SCH ×2 (00:43→10:11)
[2017-01-06] MEDS: HYDROmorphone 2 MG TABLET PO PRN ×2 (02:13→09:53)
[2017-01-06] MEDS: LORazepam 2 MG/ML VIAL IV PRN ×3 (05:05→13:51)
[2017-01-06] MEDS: 0.9 % SODIUM CHLORIDE 10 ML SYRINGE IV SCH ×2 (06:00→13:40)
[2017-01-06] MEDS: ceFAZolin 1 GM VIAL IV SCH ×2 (06:00→14:14)
[2017-01-06 06:04] LABS: Basophils # (Auto) 0 K/mcL (0.0-0.3); Basophils % (Auto) 0.3 % (0.0-2.0); Eosinophils # (Auto) 0.3 K/mcL (0.0-0.7); Granulocytes % (Auto) 44.4 % (38.0-78.0); Lymphocytes # (Auto) 2.2 K/mcL (1.5-4.8); Lymphocytes % (Auto) 39.9 % (15.5-49.0); Mean Cell Volume 92.3 fL (80.0-100.0); Mean Corpuscular HGB Conc 34.5 g/dL (31.0-36.0); Mean Corpuscular Hemoglobin 31.8 pg (26.0-34.0); Monocytes # (Auto) 0.5 K/mcL (0.1-0.9); Monocytes % (Auto) 9.4 % (1.0-12.0); Platelet Count 178 K/mcL (140-440); RBC 3.49 M/mcL (4.50-5.90); Red Cell Distribution Width 15.3 % (11.5-14.5)
[2017-01-06 06:31] LABS: Blood Urea Nitrogen 9 mg/dl (6-20)
--- NOTE | 2017-01-06 09:08 | Discharge Summary ---
Medical - DS: Prov Patient information: Note initiated : 01/06/17 at 9:06 am Service Date, if different from initiated Date: [] Patient: Rock Narayan 56 y/o M admitted on 01/01/17 for Wound Lt Foot/Left Foot Cellutiltis, Ostemyelitis. Chief Complaint: [] Date of admission: 01/01/17 17:45 Discharge date: 01/06/17 Attending physician on admission: Duane Bautista Consults: 01/01/17 17:09 Consult to Physician [CONS] Stat Comment: Consulting Provider: Darci Jacobs Reason For Exam: Physician to Consult Consult to Physician [CONS] Stat Comment: Consulting Provider: Duane Bautista Reason For Exam: Physician to Consult 01/04/17 13:58 Consult to Physician [CONS] Routine Comment: Consulting Provider: [facility] Reason For Exam: Physician to Consult Attending physician on discharge: Kim Castaneda Medical - DS: Meds - Discharge Medications Prescriptions: ceFAZolin [Ancef] 1 gm IV Q8H #117 vial HYDROcodone/APAP 10/325MG [[place] 10/325Mg] 2 tab PO Q4HP PRN #42 tab PRN Reason: Pain Ondansetron HCl [Zofran ODT] 4 mg SL Q6HP PRN #30 tab PRN Reason: Nausea And Vomiting Active and Home Medications: Home Medications QUEtiapine [Seroquel] 100 mg PO HS 08/19/16 [History Confirmed 01/01/17 Last Taken 12/31/16 21:00] Multivit,Ther Iron,Ca,FA & Min [Multivitamin W/Minerals] 1 tab PO DAILY tablet 09/27/16 [Rx Confirmed 01/01/17 Last Taken 01/01/17 07:00] Pantoprazole Sodium 40 mg PO DAILY #30 tablet. 09/27/16 [Rx Confirmed Last Taken 01/01/17 07:00] Dextroamphetamine/Amphetamine [Adderall 30 mg Tablet] 30 mg PO TID 01/01/17 [ History Confirmed 01/01/17 Last Taken 01/01/17 13:00] HYDROcodone/APAP 10/325MG [[place] 10/325Mg] 2 tab PO Q4HP PRN #42 tab 01/05/17 [ Rx Last Taken Unknown] Ondansetron HCl [Zofran ODT] 4 mg SL Q6HP PRN #30 tab 01/05/17 [Rx Last Taken Unknown] ceFAZolin [Ancef] 1 gm IV Q8H #117 vial 01/05/17 [Rx Last Taken Unknown] Medical - DS: Hosp Hospital course: Follow up issues: 1. Weekly CBC, CMP, CRP while on cefazolin (through 02/14/17); Dr. Jacobs to follow. 2. Consider dicloxacillin suppression after he completes his course of IV antibiotics. 3. If infection recurs, consider hardware removal. Mr. Narayan is a 56 year old M who has a history of recurrent foot infection and is followed by Dr. Jacobs with podiatry. He had a metatarsal fracture for unclear reasons in November and underwent surgical repair with hardware placement. 2 weeks prior to presentation he began having increased pain, redness and swelling in the left foot. He was seen in the podiatry clinic on and referred for admission and IV antibiotics by Dr. Jacobs. He underwent I&D with retention of the hardware and intraoperative cultures eventually grew MSSA. He was treated with vancomycin, cefepime and Flagyl prior to cultures returning. I discussed his case with infectious disease in [place] who recommended 6 weeks of cefazolin or nafcillin and since his hardware remains in place, considering permanent suppression with dicloxacillin. He has been counseled on eating yogurt or taking a probiotic while on antibiotics to prevent C diff. He has continued to complain of 10/10 pain in his foot despite multiple interventions including oxycodone, scheduled Tylenol, oral Dilaudid, hydrocodone , oral morphine, IV Dilaudid. He demonstrated similar behaviors last admission. He has been declining oral medications as he states they're not helpful. While transitioning from oxycodone to hydrocodone per his request, he was inadvertently left on scheduled Tylenol and received 16 g of Tylenol over the course of 2 days. If hydrocodone was discontinued and he was placed on morphine with Dilaudid. He will be discharged on hydrocodone 42 tablets. Discharge diagnosis: L foot MSSA cellulitis w abscess & presumed osteomyelitis w hardware in Secondary discharge diagnosis: 1/2 blood cultures positive for coagulase negative staph, likely a contaminant Recent metatarsal fracture s/p surgical repair with hardware placement 12/05/16 Prior deep wound infection with culture positive for Pseudomonas s/p 6 weeks of IV antibiotics including Vancomycin, Zosyn, Imipenim, daptomycin and ceftriaxone Chronic pain on chronic opiates with concern for seeking behavior DANIELLE resolved chronic diarrhea bipolar disorder - Time Spent with Patient Total time spent providing and/or coordinating discharge services: Greater than 30 minutes Medical - DS: Exam - Constitutional Vitals: Vital Signs Temp Pulse Resp BP Pulse Ox 01/06/17 07:59 97.6 F 16 157/93 97 01/06/17 04:45 97.8 F 69 18 143/84 96 01/05/17 23:56 97.9 F 72 18 159/79 94 01/05/17 19:20 97.6 F 72 18 176/99 96 01/05/17 15:15 98.6 F 20 168/79 93 01/05/17 11:43 98.8 F 20 163/80 94 Intake and Output 01/05/17 01/06/17 01/06/17 21:59 05:59 13:59 Intake Total 1960 / 1960 900 / 900 Output Total 750 / 750 1700 / 1700 Balance 1210 / 1210 -800 / -800 Intake: IV 1000 / 1000 Sodium Chloride 0.9% 1,000 ml @ 1000 / 1000 125 mls/hr IV .Q8H [facility] Rx#: [id number] Oral 960 / 960 900 / 900 Output: Void Amount 750 / 750 1700 / 1700 Other: Meal Lunch Percent of Meal Consumed 75% # Voids 1 Weight 268 lb Additional comments: General: NAD. HEENT: Normocephalic atraumatic. PERRLA. Sclerae anicteric CV: Regular rate and rhythm. No murmurs rubs or gallops. Respiratory: Lungs are clear auscultation bilaterally. Abdomen: Soft, nondistended, nontender. Positive bowel tones. Extremities: No clubbing, cyanosis or edema. Left foot is dressed in bandage. Bandage is dry. Neuro: Alert and oriented 3. No focal deficits. Medical - DS: Data Procedures and tests throughout hospitalization: ESR 18 CRP 0.8 Cx: +MSSA Labs on day of discharge: Labs from last 24 hours 01/06/17 01/06/17 01/05/17 04:30 04:30 04:00 WBC 5.6 RBC 3.49 L Hgb 11.1 L Hct 32.2 L MCV 92.3 MCH 31.8 MCHC 34.5 RDW 15.3 H Plt Count 178 MPV 7.8 Gran % 44.4 Lymph % (Auto) 39.9 [place] % (Auto) 9.4 Eos % (Auto) 6.0 Baso % (Auto) 0.3 Gran # 2.5 Lymph # (Auto) 2.2 [place] # (Auto) 0.5 Eos # (Auto) 0.3 Baso # (Auto) 0 Sodium 142 Potassium 3.4 Chloride 108 Carbon Dioxide 23 Anion Gap 11.0 BUN 9 Creatinine 1.0 GFR Calculation 83 Glucose 103 Calcium 7.7 L C-Reactive Protein 0.8 Preliminary micro results at discharge 01/01/17 15:39 Blood Culture - Preliminary Blood 01/03/17 09:00 Anaerobic Culture - Preliminary Foot - Left 01/03/17 09:00 Anaerobic Culture - Preliminary Foot - Left 01/01/17 15:54 Blood Culture - Preliminary Blood Coagulase negative staph Medical - DS: A/P - Patient/Caregiver Discharge Instructions Activity: other Diet: Regular Diet Additional Instructions: Continue to be non-weight bearing on your left foot. You will need to go the outpatient infusion therapy center for the next 6 weeks (end date 02/14) to get IV cefazolin via a CADD pump. Follow up with Dr. Jacobs next week for a wound check. Contact the office on Monday 01/08 to schedule. [phone] After you finish your IV antibiotics, ask Dr. Jacobs about whether suppressive antibiotic therapy with dicloxacillin is right for you. Resume home diet as tolerated. While you are on antibiotics, take a probiotic or eat yogurt to prevent diarrhea or yeast infections. Weekly CBC, CMP, CRP to be copied to Dr. Darci Jacobs (podiatry) while on cefazolin. Prescriptions: ceFAZolin [Ancef] 1 gm IV Q8H #117 vial HYDROcodone/APAP 10/325MG [[place] 10/325Mg] 2 tab PO Q4HP PRN #42 tab PRN Reason: Pain Ondansetron HCl [Zofran ODT] 4 mg SL Q6HP PRN #30 tab PRN Reason: Nausea And Vomiting - Follow up Plan Follow up with: Reynaldo,Darci, DPM [Physician] - Disposition: Home, Self-Care Prognosis: Fair Rehab Potential: Fair I certify that the patient requires SNF services: No Overall status at discharge: patient is progressing back to baseline Medical - DS: Qual - VTE Deep Vein Thrombosis/Pulmonary Embolism Present on Admission: No
[2017-01-06] MEDS: PANTOPRAZOLE 40 MG TABLET PO SCH (09:48)
[2017-01-06] MEDS: ENOXAPARIN 40 MG/0.4 ML SYRINGE SQ SCH (09:48)
[2017-01-06] MEDS: MULTIVIT,THER IRON,CA,FA & MIN 1 TABLET PO SCH (09:48)
== END 2017-01-06 14:40 | disposition home or self-care (01) | DRG 571 ==
LOC: ED 14:57 → MEDSUR 17:45
PROVIDERS: ADMIT Internal Medicine; ATTEND Internal Medicine